=== PATIENT | female | born 1940 | race Caucasian/White ===

== ENCOUNTER 2020-04-05 13:24 | Inpatient (IN) | payer MEDICARE, OTHER, SELFPAY ==
[2020-04-05] VITALS (10 sets, daily range): BP systolic 108–143; BP diastolic 50–97; PULSE 68–84; RESP 18–25; TEMP 36.2–37.3; O2SAT 88–99; BMI 30.2; BMI 30.9; BMI 31.0
--- NOTE | 2020-04-05 13:44 | EKG12_ITS ---
Test Reason : SOB Blood Pressure : / mmHG Vent. Rate : 069 BPM Atrial Rate : 069 BPM P-R Int : 140 ms QRS Dur : 112 ms QT Int : 424 ms P-R-T Axes : 015 -18 -07 degrees QTc Int : 454 ms Normal sinus rhythm Low voltage QRS Incomplete right bundle branch block Borderline ECG Confirmed by ROZ SOLARES, ZANA ([id number]), website/blog editor OPAL BURK ([id number]) on 04/08/2020 12:49:24 PM Referred By: FRANKY Confirmed By:ZANA COURTNEY MD
--- NOTE | 2020-04-05 13:48 | ED.DCSUM_ITS ---
- ER Visit Summary Date of Service: 04/05/20 Chief Complaint: Shortness of breath History of Present Illness: The patient is a 79 F presenting with shortness of breath. She states she started having Covid-like symptoms on March 24. She started having rhinorrhea and sore throat. Her symptoms started out mild. She states over the past 5 to 6 days she has had increasing shortness of breath. This is worsened with exertion. She has been taking Tylenol regularly. She does not currently have a physician. She denies chest pain. Her son-in-law and grandson have tested positive for Covid. Physical Examination: Vitals are stable. Resp rate 24. Patient is afebrile. Alert no acute distress. 88% on room air HEENT exam is unremarkable. Neck is supple. Lungs are diminished bilaterally. tachypnea Heart is regular rate and rhythm. Abdomen is soft nontender nondistended. Extremities are unremarkable. Skin is warm and dry. No focal neurologic deficit. Remainder of exam is unremarkable. Emergency Department Course and Treatment: EKG is sinus rhythm rate of 69 with incomplete right bundle branch block. Chest xray shows airspace opacity in the lingula and right lower lobe which is consistent with multilobar pneumonia. CBC shows lymphocytes are low. Chemistries show potassium 3.1, glucose 122. Troponin 0.03. Covid is positive. She was given Decadron. She was given Rocephin and Zithromax for possible secondary infection. Discussed with the hospitalist for admission. Disposition: Admission Impression: Multilobar pneumonia, COVID-19 This note was generated with [employer] dictation software. It may contain incorrect words, spelling, and punctuation that were not noted in review of the chart prior to signing ED Disposition - Plan for ED Patient: Referrals: Care Physician,No Primary [Primary Care Provider] -
--- NOTE | 2020-04-05 14:15 | RAD_ITS ---
STUDY: X-RAY CHEST REASON FOR EXAM: Female, 79 years old. Shortness of breath TECHNIQUE: Frontal view of the chest COMPARISON: None. FINDINGS: There is airspace opacity in the lingula and right lower lobe. There are no pleural effusions. There is no pneumothorax. The heart is normal in size. The visualized osseous structures are within normal limits. RAD/Chest 1 View (Portable) IMPRESSION: Airspace opacity in the lingula and right lower lobe which is consistent with multilobar pneumonia. Electronically Signed: Leeroy May, at 14:37 EST Tel , Service support ,
[2020-04-05 14:44] LABS: Anion Gap 5 (5-15); BUN 13 mg/dL (7-18); BUN/Creat Ratio 13.9 RATIO (10-20); Calcium,Total 8.5 mg/dL (8.5-10.1); Chloride 108 mmol/L (98-107); Creatinine, Serum 0.94 mg/dL (0.55-1.02); EST Glomerular Filtration Rate 61 mL/min (>60); Est Glom Filt Rate - Afr Amer 74 mL/min (>60); Estimated Creatinine Clearance 38.83 ml/min; Glucose 122 mg/dL (74-106); Potassium 3.1 mmol/L (3.5-5.1); Sodium Level 141 mmol/L (136-145)
[2020-04-05 14:46] LABS: Absolute Lymphocyte Count 0.91 X10^3/uL (0.83-4.51); Absolute Neutrophil Count 9.1 X10^3/uL (2.0-7.7); Basophil# 0.02 X10^3/uL; Basophil% 0.2 % (0-1); Eosinophil# 0.01 X10^3/uL; Eosinophils% 0.1 % (0-5); Hematocrit 36.9 % (37-47); Hemoglobin 12.2 g/dL (12.0-15.0); Lymphocyte # 0.91 X10^3/ul (4.0); Lymphocyte % 8.6 % (19-41); Mean Corp Hgb Conc 33.1 g/dL (32-36); Mean Corpuscular Hgb 29.3 pg (27.0-32.0); Mean Corpuscular Volume 88.7 fL (81-99); Mean Platelet Vol. 10.5 fl (6.2-12.0); Monocyte# 0.53 X10^3/uL; NRBC Flagged by Analyzer 0 % (0-5); Neutrophil # 9.05 X10^3/uL (2.7-7.7); Neutrophil % 85.3 % (47-70); Platelet Count 213 K/mm3 (150-450); RBC Distribution Width CV 13.3 % (11.6-14.6); RBC Distribution Width SD 43.5 fl (35.1-43.9); Red Blood Count 4.16 M/mm3 (4.2-5.4); White Blood Count 10.6 K/mm3 (4.4-11.0)
[2020-04-05] MEDS: dexAMETHasone 4 MG Tablet 6 MG PO (15:17)
[2020-04-05] MEDS: Ceftriaxone 1 GM/50 ML BAG IV (15:19)
--- NOTE | 2020-04-05 15:20 | HP.PCM_ITS ---
Problem List (1) Pneumonia Status: Acute History of Present Illness Date of Admission: 04/05/20 Chief Complaint: shortness and cough The patient is a 79 year old F presents with 5-day history of shortness of breath and cough. Presented to the emergency room and she was 88% on room air. Placed on oxygen and her sats remained in the 90s. Chest x-ray showed bilateral lower lobe infiltrates. Patient was exposed to people in her home who had Covid. 2 weeks ago, she had symptoms with malaise short of breath and diarrhea but got better and then 5 days ago started getting worse. Patient was not tested for COVID-19 at that time. Patient does have a Covid test that is currently outstanding at the time of this dictation. Patient denies any past medical history other than having weak lungs, she characterizes that is just not taking in deep breaths but denies any history of asthma or COPD. [] Past Medical History Allergies Penicillins [PCN] Allergy (Verified 04/05/20 13:32) Hives codeine Adverse Reaction (Verified 04/05/20 13:32) Upset Stomach Home Medications: Ambulatory Orders Medication Instructions Recorded NK 04/05/20 Smoking Status: Never smoker - *Family History Maternal History Items: - - No longer heart problems Review of Systems Constitutional: Reports: Weakness. Denies: Anorexia, Chills, Fever Eyes: Denies: Blurred vision, Double vision HEENT: Denies: Head Aches, Sinus Congestion, Sinus Drainage Cardiovascular: Denies: Chest Pain, Palpitations Respiratory: Reports: Cough, Shortness of Breath Gastrointestinal: Denies: Abdominal Pain, Nausea, Vomiting Genitourinary: Denies: Dysuria Hematologic/ Lymphatic: Denies: Hx of blood clot Comment: All review of systems were negative except as mentioned above in the history of present illness and the other review of systems. VTE Information - Inpt Only VTE Present on Admission: No VTE Mechan Device Prophylaxis: None VTE Pharm Prophylaxis ordered?: Yes - Physical Exam Vitals/I&O's: Vital Signs Temp Pulse Resp BP Pulse Ox 37.2 C 74 23 H 131/97 H 98 04/05/20 15:00 04/05/20 15:00 04/05/20 15:00 04/05/20 15:00 04/05/20 15:00 Oxygen Flow Rate (L/min) 2 Oxygen Delivery Method Nasal Cannula Weight: 77.27 kg Body Mass Index (BMI) 30.2 General: Alert, Cooperative, No apparent distress HEENT: Atraumatic, Normocephalic Oral: Moist Mucosa, No Gingival or Mucosal Lesions/ Ulcerations Neck: No Nodes, Thyroid Normal Size and Texture Lungs: Normal air movement, - - Bibasilar crackles. Cardiovascular: Regular rate, Regular Rhythm, Normal S1, Normal S2, No murmurs Abdomen: Bowel Sounds Present, Soft, Non Tender, Non-Distended, No Hepato- splenomegaly Extremities: No edema, No Calf Tenderness Skin: No rashes, No breakdown Neurological: Muscle tone normal, Coordination normal Psych/Mental Status: Normal Affect, Appropriate Laboratory Results 04/05/20 14:00: WBC 10.6, RBC 4.16 L, Hgb 12.2, Hct 36.9 L, MCV 88.7, MCH 29.3, MCHC 33.1, RDW Std Deviation 43.5, RDW Coeff of Gabriel 13.3, Plt Count 213, MPV 10.5, Immature Gran % (Auto) 0.800, Neut % (Auto) 85.3 H, Lymph % (Auto) 8.6 L, [place] % (Auto) 5.0, Eos % (Auto) 0.1, Baso % (Auto) 0.2, Absolute Neuts (auto) 9.1 H, Absolute Lymphs (auto) 0.91, Nucleated RBC % 0 04/05/20 14:00: Sodium 141, Potassium 3.1 L, Chloride 108 H, Carbon Dioxide 28.0, Anion Gap 5, BUN 13, Creatinine 0.94, Estim Creat Clear Calc 38.83, Est GFR (MDRD) Af Amer 74, Est GFR (MDRD) Non-Af 61, BUN/Creatinine Ratio 13.9, Glucose 122 H, Calcium 8.5, Troponin I 0.030 04/05/20 14:00: COVID-19 ([facility]) Pending Chest x-ray personally reviewed and showed bilateral lobe infiltrates. Current Medications Azithromycin 500 mg/ Dextrose 255 mls @ 250 mls/hr IV X1 ONE Stop: 04/05/20 16:01 Ceftriaxone Sodium (Rocephin) 1 gm in 50 mls @ 100 mls/hr IV X1 ONE Stop: 04/05/20 15:29 Last Admin: 04/05/20 15:19 Dose: 100 mls/hr Documented by: Sodium Chloride () 250 mls @ 15 mls/hr IV .[id number] PRN PRN Reason: Saline Flush Assessment/Plan All Active Problems Pneumonia (Acute) 1. Suspected pneumococcal pneumonia: I suspect this probably secondary pneumonia related with a presumed COVID-19 infection. We will continue with azithromycin and ceftriaxone. Check urinary antigens for Streptococcus and Legionella, check influenza as well. 2. Acute hypoxic respiratory insufficiency: Secondary to above plus or minus COVID-19. Patient on oxygen. Upon discharge, check in the ambulatory pulse ox. 3. COVID-19 infection: Suspect that she had mild symptoms about 2 weeks ago and then got better. I did tell the patient that it is certainly possible that she could be having worsening of her COVID-19. If patient is positive for COVID-19 then would initiate dexamethasone while she is in the hospital. Patient is receiving a dose in the emergency room. 4. Hypokalemia: Replace. Check magnesium. Replace magnesium if low. 5. VTE prophylaxis with low molecular weight heparin 6. Advanced care planning: Discussed with the patient. Patient wishes to be DNR Comfort Care arrest with intubation if necessary. 7. Disposition: Explained the patient that it variable at this time. She is COVID-19 negative and doing better tomorrow theoretically that she could go home as early as tomorrow, however if she is positive for COVID-19 will to watch her another day if she is improved to ensure that she does not have any worsening that can be seen with individuals with COVID-19. Given patient's age, patient not be established with a primary care provider upon discharge for age- appropriate screening and also screening test that she may have missed. Inpatient E&M: [id number] Init Hosp L3
[2020-04-05 15:41] LABS: Probe Check PASS
[2020-04-05 17:48] LABS: Magnesium 1.6 mg/dL (1.6-2.6)
[2020-04-05] MEDS: 0.9% Saline Lock 10 ML Syringe IV (18:09)
--- NOTE | 2020-04-05 20:19 | PN_ITS ---
Progress Note Patient has aside being positive for COVID-19 she is also positive for influenza B. Will start patient on Tamiflu po adjusted for creatinine cl earance. STROKE Vital Signs/Narrative: Vital Signs Temp Pulse Resp BP Pulse Ox 04/05/20 17:31 99.1 F 84 24 H 143/82 H 94
[2020-04-05] MEDS: Enoxaparin 30 MG/0.3 ML Syringe SC (21:12)
[2020-04-05] MEDS: guaiFENesin 1,200 MG Tablet 1200 MG PO (21:12)
[2020-04-05] MEDS: Oseltamivir Phosphate 30 MG Capsule PO (21:12)
[2020-04-06] VITALS (9 sets, daily range): BP systolic 108–129; BP diastolic 59–71; PULSE 64–74; RESP 20–24; TEMP 36.3–36.8; O2SAT 88–97
[2020-04-06 06:30] LABS: Absolute Lymphocyte Count 1.05 X10^3/uL (0.83-4.51); Absolute Neutrophil Count 5.5 X10^3/uL (2.0-7.7); Basophil# 0.01 X10^3/uL; Basophil% 0.1 % (0-1); Hematocrit 34.3 % (37-47); Hemoglobin 11.8 g/dL (12.0-15.0); Lymphocyte # 1.05 X10^3/ul (4.0); Lymphocyte % 15.2 % (19-41); Mean Corp Hgb Conc 34.4 g/dL (32-36); Mean Corpuscular Hgb 31.9 pg (27.0-32.0); Mean Corpuscular Volume 92.7 fL (81-99); Mean Platelet Vol. 9.3 fl (6.2-12.0); Monocyte# 0.27 X10^3/uL; Monocyte% 3.9 % (0-10); NRBC Flagged by Analyzer 0 % (0-5); Neutrophil # 5.54 X10^3/uL (2.7-7.7); Neutrophil % 80.1 % (47-70); POSITIVE MORPHOLOGY YES; Platelet Count 304 K/mm3 (150-450); RBC Distribution Width CV 13.3 % (11.6-14.6); RBC Distribution Width SD 43.9 fl (35.1-43.9); White Blood Count 6.9 K/mm3 (4.4-11.0)
[2020-04-06 06:32] LABS: Differential Indicated SCAN CRITERIA MET
[2020-04-06 06:59] LABS: ALB/GLOB Ratio 0.6 RATIO (0.9-2.4); AST(SGOT) 34 U/L (15-37); Alanine Aminotransfer ALT/SGPT 31 U/L (13-56); Albumin, Serum 2.6 g/dL (3.2-5.0); Alkaline Phosphatase 85 U/L (45-117); Anion Gap 8 (5-15); BUN 10 mg/dL (7-18); BUN/Creat Ratio 13.9 RATIO (10-20); Calcium,Total 8.3 mg/dL (8.5-10.1); Chloride 108 mmol/L (98-107); Creatinine, Serum 0.72 mg/dL (0.55-1.02); EST Glomerular Filtration Rate 83 mL/min (>60); Est Glom Filt Rate - Afr Amer 100 mL/min (>60); Globulin 4.3 g/dL (2.2-4.2); Glucose 146 mg/dL (74-106); Potassium 3.9 mmol/L (3.5-5.1); Protein, Total 6.9 g/dL (6.4-8.2); Sodium Level 142 mmol/L (136-145)
[2020-04-06 07:05] LABS: Differential Comment SCANNED
--- NOTE | 2020-04-06 07:21 | PN_ITS ---
Patient Problems: Active and Suspected Problems Pneumonia (Acute) Reason for Visit: Follow-up on hypoxia/Acute COVID-19 infection/Acute influenza Subjective: Patient was seen and examined. Feels improved. She has been coughing. Denies any fever or chills. Objective: Physical exam: General: Alert, Cooperative, No apparent distress HEENT: Atraumatic, Normocephalic Oral: Moist Mucosa, No Gingival or Mucosal Lesions/ Ulcerations Neck: No Nodes, Thyroid Normal Size and Texture Lungs: Normal air movement, - - Bibasilar crackles. Cardiovascular: Regular rate, Regular Rhythm, Normal S1, Normal S2, No murmurs Abdomen: Bowel Sounds Present, Soft, Non Tender, Non-Distended, No Hepato- splenomegaly Extremities: No edema, No Calf Tenderness Skin: No rashes, No breakdown Neurological: Muscle tone normal, Coordination normal Psych/Mental Status: Normal Affect, Appropriate Vitals/I&O's: Vital Signs Temp Pulse Resp BP Pulse Ox 98 F 68 24 H 129/65 H 97 04/06/20 03:17 04/06/20 03:17 04/06/20 03:17 04/06/20 03:17 04/06/20 03:20 Oxygen Flow Rate (L/min) 4 Oxygen Delivery Method Nasal Cannula Weight: 79.379 kg Body Mass Index (BMI) 30.9 Intake and Output for Last 24 Hours 04/04/20 04/05/20 04/06/20 23:59 23:59 23:59 Intake Total 675.75 / 675.75 100 / 100 Balance 675.75 / 675.75 100 / 100 Microbiology Past 72 Hours 04/05/20 21:05 Urine, Clean Catch Legionella Antigen - Final 04/05/20 21:05 Urine, Clean Catch Streptococcus pneumoniae Antigen (M - Final 04/05/20 18:15 Mucosa - Nasopharyngeal Influenza Types A,B Direct FA (MIGULE ÁNGEL) - Final Influenzae B Laboratory Results 04/05/20 14:00: WBC 10.6, RBC 4.16 L, Hgb 12.2, Hct 36.9 L, MCV 88.7, MCH 29.3, MCHC 33.1, RDW Std Deviation 43.5, RDW Coeff of Gabriel 13.3, Plt Count 213, MPV 10.5, Immature Gran % (Auto) 0.800, Neut % (Auto) 85.3 H, Lymph % (Auto) 8.6 L, [place] % (Auto) 5.0, Eos % (Auto) 0.1, Baso % (Auto) 0.2, Absolute Neuts (auto) 9.1 H, Absolute Lymphs (auto) 0.91, Nucleated RBC % 0 04/05/20 14:00: Sodium 141, Potassium 3.1 L, Chloride 108 H, Carbon Dioxide 28.0, Anion Gap 5, BUN 13, Creatinine 0.94, Estim Creat Clear Calc 38.83, Est GFR (MDRD) Af Amer 74, Est GFR (MDRD) Non-Af 61, BUN/Creatinine Ratio 13.9, Glucose 122 H, Calcium 8.5, Troponin I 0.030 04/05/20 14:00: COVID-19 ([facility]) Positive 04/05/20 14:00: Magnesium 1.6 04/06/20 05:42: WBC 6.9, RBC 3.70 L, Hgb 11.8 L, Hct 34.3 L, MCV 92.7, MCH 31.9, MCHC 34.4, RDW Std Deviation 43.9, RDW Coeff of Gabriel 13.3, Plt Count 304, MPV 9.3, Immature Gran % (Auto) 0.700, Neut % (Auto) 80.1 H, Lymph % (Auto) 15.2 L, [place] % (Auto) 3.9, Eos % (Auto) 0.0, Baso % (Auto) 0.1, Absolute Neuts (auto) 5.5, Absolute Lymphs (auto) 1.05, Nucleated RBC % 0, Differential Comment SCANNED 04/06/20 05:42: Sodium 142, Potassium 3.9, Chloride 108 H, Carbon Dioxide 26.0, Anion Gap 8, BUN 10, Creatinine 0.72, Estim Creat Clear Calc 36.50, Est GFR (MDRD) Af Amer 100, Est GFR (MDRD) Non-Af 83, BUN/Creatinine Ratio 13.9, Glucose 146 H, Calcium 8.3 L, Total Bilirubin 0.40, AST 34, ALT 31, Alkaline Phosphatase 85, Total Protein 6.9, Albumin 2.6 L, Globulin 4.3 H, Albumin/Globulin Ratio 0.6 L Current Medications Acetaminophen (Acetaminophen 325 Mg Tablet) 650 mg PO Q6H PRN PRN PRN Reason: Pain Score 1-10/Temp > 100.7 F Dexamethasone (Dexamethasone 4 Mg Tablet) 6 mg PO DAILY [facility] Stop: 04/15/20 10:01 Enoxaparin Sodium (Enoxaparin 30 Mg/0.3 Ml Syringe) 30 mg SC BID [facility] Last Admin: 04/05/20 21:12 Dose: 30 mg Documented by: Guaifenesin (Guaifenesin 1,200 Mg Tablet) 1,200 mg PO BID [facility] Last Admin: 04/05/20 21:12 Dose: 1,200 mg Documented by: Ceftriaxone Sodium 2 gm/ (Sodium Chloride) 50 mls @ 100 mls/hr IV Q24 [facility] Stop: 04/13/20 10:01 Azithromycin 500 mg/ Dextrose 255 mls @ 250 mls/hr IV Q24 [facility] Stop: 04/11/20 10:01 Sodium Chloride () 250 mls @ 15 mls/hr IV .[id number] PRN PRN Reason: Saline Flush Sodium Chloride () 250 mls @ 15 mls/hr IV .[id number] PRN PRN Reason: Additional IVPB Infusion Sodium Chloride () 250 mls @ 15 mls/hr IV .[id number] PRN PRN Reason: Saline Flush Sodium Chloride () 250 mls @ 15 mls/hr IV .[id number] PRN PRN Reason: Additional IVPB Infusion Ibuprofen (Ibuprofen 400 Mg Tablet) 400 mg PO Q4H PRN PRN PRN Reason: Pain Score 1-10/Temp > 100.7 F Melatonin (Melatonin 3 Mg Tablet) 3 mg PO QHS PRN PRN PRN Reason: INSOMNIA Ondansetron HCl (Ondansetron 4 Mg/2 Ml Vial) 4 mg IV Q8H PRN PRN PRN Reason: NAUSEA/VOMITING Oseltamivir Phosphate (Oseltamivir Phosphate 30 Mg Capsule) 30 mg PO BID [facility] Stop: 04/10/20 10:01 Last Admin: 04/05/20 21:12 Dose: 30 mg Documented by: Sodium Chloride (0.9% Saline Lock 10 Ml Syringe) 10 - 40 ml IV UD PRN PRN Reason: SALINE FLUSH Last Admin: 04/05/20 18:09 Dose: 10 ml Documented by: Medical Necessity - Tobacco Use Smoking Status: Never smoker Assessment/Plan All Active Problems Pneumonia (Acute) 1. Acute hypoxic respiratory failure secondary to pneumonia/acute COVID-19 pneumonia/influenza Continue with breathing treatments, decadron, encourage use of incentive spirometer. Wean off oxygen for SPO2 more than 94% 2. Acute COVID-19 pneumonia with hypoxia Symptoms appear to have started 2 weeks ago, worsening 5 days prior to admission Continue on Decadron, continue breathing treatments 3. Acute community-acquired pneumonia, multilobular, likely secondary to suspected gram-positive organisms Chest x-ray showed airspace opacity in the lingula and right lower lobe Continue on IV ceftriaxone and azithromycin 4. Acute influenza, started on Tamiflu 5. DVT PPx- Lovenox SC BID Inpatient E&M: [id number] Subs Hosp L2
[2020-04-06] MEDS: dexAMETHasone 4 MG Tablet 6 MG PO (10:34)
[2020-04-06] MEDS: Enoxaparin 30 MG/0.3 ML Syringe SC ×2 (10:34→22:34)
[2020-04-06] MEDS: guaiFENesin 1,200 MG Tablet 1200 MG PO ×2 (10:34→22:34)
[2020-04-06] MEDS: Oseltamivir Phosphate 30 MG Capsule PO ×2 (10:35→22:34)
[2020-04-06] MEDS: Multivitamins,Therapeutic Tablet 1 TABLET PO (10:38)
--- NOTE | 2020-04-06 14:26 | NURSING ---
[id number]% on 5L [place]. This nurse decreased rate to 4L [place] at this time. Spo2 92% on 4L [place]. Will continue to monitor.
[2020-04-06] MEDS: 0.9% Saline Lock 10 ML Syringe IV ×2 (15:55→22:35)
[2020-04-07] VITALS (11 sets, daily range): BP systolic 120–133; BP diastolic 68–83; PULSE 75–99; RESP 18–24; TEMP 36.3–37.1; O2SAT 92–98
--- NOTE | 2020-04-07 08:10 | PCM.CONS.PUL ---
Reason for Consult Date of Consultation: 04/07/20 Reason for Consultation: Acute hypoxemic respiratory failure secondary to Covid pneumonia History of Present Illness: The patient is an 79-year-old female, with a history as outlined below, who presented to the emergency department on April 05 with complaints of shortness of breath, rhinorrhea, fever and sore throat. The patient does have family members who have tested positive for coronavirus recently. In total, the patient reported that her symptoms have been present now for 2 weeks. She does report that if her respiratory status were to decompensate clinically, that she would be agreeable to intubation. On presentation to the emergency department, the patient was noted to be afebrile and hemodynamically stable. She was initially saturating 88% on room air. Laboratory evaluation revealed a normal white blood cell count. Chemistry profile was notable for a potassium of 3.1. Liver function profile was within normal limits. Troponin was negative. Coronavirus PCR was positive. Chest x-ray revealed findings concerning for multilobar pneumonia. Respiratory viral panel was also positive for influenza B. The patient was subsequently placed on Decadron, antimicrobials and Tamiflu. She was admitted to the coronavirus cohort unit for further management. Past Medical History Allergies Penicillins [PCN] Allergy (Verified 04/05/20 17:31) Hives codeine Adverse Reaction (Verified 04/05/20 17:31) Upset Stomach Home Medications: Ambulatory Orders Medication Instructions Recorded Multivitamin 1 ea PO DAILY 04/05/20 Smoking Status: Never smoker - *Family History Maternal History Items: - - No longer heart problems Review of Systems Constitutional: Reports: Chills, Fever, Malaise, Weakness, Fatigue Eyes: Denies: Blurred vision, Double vision HEENT: Denies: Head Aches, Sinus Congestion, Sinus Drainage Cardiovascular: Denies: Chest Pain, Palpitations Respiratory: Reports: Cough, Shortness of Breath Gastrointestinal: Denies: Abdominal Pain, Nausea, Vomiting Genitourinary: Denies: Dysuria Musculoskeletal: Denies: Joint Pain, Joint Tenderness Skin: Denies: Rash, Wounds Neurological: Denies: Numbness, Tingling, Focal weakness Psychiatric: Denies: Anxiety, Depression, Homicidal Ideations, Suicidal Ideations Hematologic/ Lymphatic: Denies: Easy Bruising, Easy Bleeding Patient Problems: Active and Suspected Problems Pneumonia (Acute) COVID-19 (Acute) Objective: The patient's most recent lab work, culture data and imaging studies have all been personally reviewed. Coronavirus PCR was positive on April 05. Respiratory viral panel was positive for influenza B. - Physical Exam Vitals/I&O's: Vital Signs Temp Pulse Resp BP Pulse Ox 98.1 F 78 24 H 133/76 H 96 04/07/20 05:12 04/07/20 05:12 04/07/20 05:12 04/07/20 05:12 04/07/20 05:12 Oxygen Flow Rate (L/min) 5 Oxygen Delivery Method Nasal Cannula Weight: 175 lb 0.752 oz Body Mass Index (BMI) 30.9 Intake and Output for Last 24 Hours 04/05/20 04/06/20 04/07/20 23:59 23:59 23:59 Intake Total 675.75 / 675.75 1214 / 1414 400 / 400 Balance 675.75 / 675.75 1214 / 1414 400 / 400 General: Alert, Cooperative HEENT: Atraumatic, Normocephalic Oral: No Gingival or Mucosal Lesions/ Ulcerations Neck: Supple, No Nodes, Trachea Midline Lungs: Diminished, Rales, Tachypneic Cardiovascular: Regular rate, Regular Rhythm Abdomen: Bowel Sounds Present, Soft, Non Tender Extremities: No clubbing, No cyanosis, No edema Skin: No breakdown Musculoskeletal: No Tenderness to Palpation of Joints or Extremities Lymphatic: No Cervical, Supraclavicular, or Inguinal Adenopathy Neurological: Cranial nerves II-XII grossly intact, Neuro grossly intact Psych/Mental Status: Normal Affect, Appropriate Labs (Last 48 Hours) 04/05/20 04/05/20 04/05/20 14:00 14:00 14:00 WBC 10.6 RBC 4.16 L Hgb 12.2 Hct 36.9 L MCV 88.7 MCH 29.3 MCHC 33.1 RDW Std Deviation 43.5 RDW Coeff of Gabriel 13.3 Plt Count 213 MPV 10.5 Immature Gran % (Auto) 0.800 Neut % (Auto) 85.3 H Lymph % (Auto) 8.6 L [place] % (Auto) 5.0 Eos % (Auto) 0.1 Baso % (Auto) 0.2 Absolute Neuts (auto) 9.1 H Absolute Lymphs (auto) 0.91 Nucleated RBC % 0 Differential Comment Sodium 141 Potassium 3.1 L Chloride 108 H Carbon Dioxide 28.0 Anion Gap 5 BUN 13 Creatinine 0.94 Estim Creat Clear Calc 38.83 Est GFR (MDRD) Af Amer 74 Est GFR (MDRD) Non-Af 61 BUN/Creatinine Ratio 13.9 Glucose 122 H Calcium 8.5 Magnesium Total Bilirubin AST ALT Alkaline Phosphatase Troponin I 0.030 Total Protein Albumin Globulin Albumin/Globulin Ratio COVID-19 (SANG) Positive 04/05/20 04/06/20 04/06/20 14:00 05:42 05:42 WBC 6.9 RBC 3.70 L Hgb 11.8 L Hct 34.3 L MCV 92.7 MCH 31.9 MCHC 34.4 RDW Std Deviation 43.9 RDW Coeff of Gabriel 13.3 Plt Count 304 MPV 9.3 Immature Gran % (Auto) 0.700 Neut % (Auto) 80.1 H Lymph % (Auto) 15.2 L [place] % (Auto) 3.9 Eos % (Auto) 0.0 Baso % (Auto) 0.1 Absolute Neuts (auto) 5.5 Absolute Lymphs (auto) 1.05 Nucleated RBC % 0 Differential Comment SCANNED Sodium 142 Potassium 3.9 Chloride 108 H Carbon Dioxide 26.0 Anion Gap 8 BUN 10 Creatinine 0.72 Estim Creat Clear Calc 36.50 Est GFR (MDRD) Af Amer 100 Est GFR (MDRD) Non-Af 83 BUN/Creatinine Ratio 13.9 Glucose 146 H Calcium 8.3 L Magnesium 1.6 Total Bilirubin 0.40 AST 34 ALT 31 Alkaline Phosphatase 85 Troponin I Total Protein 6.9 Albumin 2.6 L Globulin 4.3 H Albumin/Globulin Ratio 0.6 L COVID-19 (SANG) 04/06/20 05:42 WBC RBC Hgb Hct MCV MCH MCHC RDW Std Deviation RDW Coeff of Gabriel Plt Count MPV Immature Gran % (Auto) Neut % (Auto) Lymph % (Auto) [place] % (Auto) Eos % (Auto) Baso % (Auto) Absolute Neuts (auto) Absolute Lymphs (auto) Nucleated RBC % Differential Comment Sodium Potassium Chloride Carbon Dioxide Anion Gap BUN Creatinine Estim Creat Clear Calc Est GFR (MDRD) Af Amer Est GFR (MDRD) Non-Af BUN/Creatinine Ratio Glucose Calcium Magnesium 2.0 Total Bilirubin AST ALT Alkaline Phosphatase Troponin I Total Protein Albumin Globulin Albumin/Globulin Ratio COVID-19 (SANG) Microbiology 04/05/20 21:05 Urine, Clean Catch Legionella Antigen - Final 04/05/20 21:05 Urine, Clean Catch Streptococcus pneumoniae Antigen (M - Final 04/05/20 18:15 Mucosa - Nasopharyngeal Influenza Types A,B Direct FA (MIGUEL ÁNGEL) - Final Influenzae B Clinical Impression(s) from Imaging Studies Chest X-Ray 04/05/20 14:15 IMPRESSION: Airspace opacity in the lingula and right lower lobe which is consistent with multilobar pneumonia. Electronically Signed: Leeroy May, at 14:37 EST Tel , Service support , Current Medications Acetaminophen (Acetaminophen 325 Mg Tablet) 650 mg PO Q6H PRN PRN PRN Reason: Pain Score 1-10/Temp > 100.7 F Dexamethasone (Dexamethasone 4 Mg Tablet) 6 mg PO DAILY [facility] Stop: 04/15/20 10:01 Last Admin: 04/06/20 10:34 Dose: 6 mg Documented by: Enoxaparin Sodium (Enoxaparin 30 Mg/0.3 Ml Syringe) 30 mg SC BID [facility] Last Admin: 04/06/20 22:34 Dose: 30 mg Documented by: Guaifenesin (Guaifenesin 1,200 Mg Tablet) 1,200 mg PO BID [facility] Last Admin: 04/06/20 22:34 Dose: 1,200 mg Documented by: Ceftriaxone Sodium 2 gm/ (Sodium Chloride) 50 mls @ 100 mls/hr IV Q24 [facility] Stop: 04/13/20 10:01 Last Infusion: 04/06/20 16:35 Dose: Infused Documented by: Azithromycin 500 mg/ Dextrose 255 mls @ 250 mls/hr IV Q24 [facility] Stop: 04/11/20 10:01 Last Infusion: 04/06/20 17:59 Dose: Infused Documented by: Sodium Chloride () 250 mls @ 15 mls/hr IV .[id number] PRN PRN Reason: Saline Flush Sodium Chloride () 250 mls @ 15 mls/hr IV .[id number] PRN PRN Reason: Additional IVPB Infusion Sodium Chloride () 250 mls @ 15 mls/hr IV .[id number] PRN PRN Reason: Saline Flush Sodium Chloride () 250 mls @ 15 mls/hr IV .[id number] PRN PRN Reason: Additional IVPB Infusion Ibuprofen (Ibuprofen 400 Mg Tablet) 400 mg PO Q4H PRN PRN PRN Reason: Pain Score 1-10/Temp > 100.7 F Melatonin (Melatonin 3 Mg Tablet) 3 mg PO QHS PRN PRN PRN Reason: INSOMNIA Multivitamins (Multivitamins,Therapeutic Tablet) 1 tablet PO DAILY [facility] Last Admin: 04/06/20 10:38 Dose: 1 tablet Documented by: Ondansetron HCl (Ondansetron 4 Mg/2 Ml Vial) 4 mg IV Q8H PRN PRN PRN Reason: NAUSEA/VOMITING Oseltamivir Phosphate (Oseltamivir Phosphate 30 Mg Capsule) 30 mg PO BID [facility] Stop: 04/10/20 10:01 Last Admin: 04/06/20 22:34 Dose: 30 mg Documented by: Sodium Chloride (0.9% Saline Lock 10 Ml Syringe) 10 - 40 ml IV UD PRN PRN Reason: SALINE FLUSH Last Admin: 04/06/20 22:35 Dose: 10 ml Documented by: Assessment/Plan All Active Problems Pneumonia (Acute) COVID-19 (Acute) RECOMMENDATIONS: 1. Continue Decadron 6 mg daily x10 days. 2. Continue empiric antimicrobials. Infectious diseases consultation is pending. 3. Continue Lovenox as ordered. 4. I do not see an indication for remdesivir or convalescent plasma at this time. 5. Wean supplemental oxygen to maintain saturations at or above 90%. 6. Encourage incentive spirometer use and mobilize patient as tolerated. IMPRESSIONS: 1. Acute hypoxemic respiratory failure secondary to combined COVID-19/influenza and/or community-acquired pneumonia The patient essentially presented to the hospital with 2 weeks of Covid-like symptoms. She was also found to be positive for influenza B with radiographic findings concerning for multilobar pneumonia. She is currently maintaining appropriate saturations on supplemental O2 via nasal cannula. Recommend continuing current supportive measures including Decadron 6 mg daily x10 days. Given the patient's duration of symptoms, it is unlikely that she would benefit from remdesivir or convalescent plasma. Agree with continuing Tamiflu for now. Agree with empiric antimicrobials. Wean supplemental oxygen to maintain saturations at or above 90%. This note was generated with [employer] dictation software. It may contain incorrect words, spelling, and punctuation that were not noted in checking the note before signing. Inpatient E&M: 61260 Init Hosp L3
--- NOTE | 2020-04-07 08:15 | PCM.PN.HOSP ---
Patient Problems: Active and Suspected Problems Pneumonia (Acute) COVID-19 (Acute) Reason for Visit: Follow-up for COVID-19 pneumonia with worsening of shortness of breath. Objective: No fever. On 5 L of oxygen, pulse ox 92 to 96%. Patient had Covid symptoms started 2 weeks ago and then got better. For last for 5 days she is feeling short of breath but denies nausea, vomiting, diarrhea, myalgia or headache. Flu antigen B positive. No fever while inpatient. Patient other family members have tested positive COVID-19 about 2 weeks ago and she was exposed to them. Physical exam General: Alert, Oriented x3, Cooperative, looks frail and short of breath HEENT: Atraumatic, PERRLA, EOMI, Normocephalic Oral: No Gingival or Mucosal Lesions/ Ulcerations Neck: Supple, No JVD, Negative Carotid Bruits Lungs: Air entry diminished in bilateral lung bases. Fine rales in bilateral lung bases. Hypoxic and tachypneic Cardiovascular: Regular rate, Regular Rhythm, Normal S1, Normal S2, No murmurs Abdomen: Bowel Sounds Present, Soft, Non Tender, Non-Distended : No renal angle tenderness. No suprapubic tenderness. Extremities: No edema, Capillary Refill Less than 3 Seconds Skin: No rashes, No breakdown Musculoskeletal: No Tenderness to Palpation of Joints or Extremities Neurological: Cranial nerves II-XII grossly intact, Deep Tendon Reflexes 2+/4 and Symmetrical, Neuro grossly intact Psych/Mental Status: Normal Affect, Appropriate. Vitals/I&O's: Vital Signs Temp Pulse Resp BP Pulse Ox 98.1 F 78 24 H 133/76 H 96 04/07/20 05:12 04/07/20 05:12 04/07/20 05:12 04/07/20 05:12 04/07/20 05:12 Oxygen Flow Rate (L/min) 5 Oxygen Delivery Method Nasal Cannula Weight: 175 lb 0.752 oz Body Mass Index (BMI) 30.9 Intake and Output for Last 24 Hours 04/05/20 04/06/20 04/07/20 23:59 23:59 23:59 Intake Total 675.75 / 675.75 1214 / 1414 400 / 400 Balance 675.75 / 675.75 1214 / 1414 400 / 400 Microbiology Past 72 Hours 04/05/20 21:05 Urine, Clean Catch Legionella Antigen - Final 04/05/20 21:05 Urine, Clean Catch Streptococcus pneumoniae Antigen (M - Final 04/05/20 18:15 Mucosa - Nasopharyngeal Influenza Types A,B Direct FA (MIGUEL ÁNGEL) - Final Influenzae B Laboratory Results 04/06/20 05:42: Magnesium 2.0 Current Medications Acetaminophen (Acetaminophen 325 Mg Tablet) 650 mg PO Q6H PRN PRN PRN Reason: Pain Score 1-10/Temp > 100.7 F Dexamethasone (Dexamethasone 4 Mg Tablet) 6 mg PO DAILY [facility] Stop: 04/15/20 10:01 Last Admin: 04/06/20 10:34 Dose: 6 mg Documented by: Enoxaparin Sodium (Enoxaparin 30 Mg/0.3 Ml Syringe) 30 mg SC BID [facility] Last Admin: 04/06/20 22:34 Dose: 30 mg Documented by: Guaifenesin (Guaifenesin 1,200 Mg Tablet) 1,200 mg PO BID [facility] Last Admin: 04/06/20 22:34 Dose: 1,200 mg Documented by: Ceftriaxone Sodium 2 gm/ (Sodium Chloride) 50 mls @ 100 mls/hr IV Q24 [facility] Stop: 04/13/20 10:01 Last Infusion: 04/06/20 16:35 Dose: Infused Documented by: Azithromycin 500 mg/ Dextrose 255 mls @ 250 mls/hr IV Q24 [facility] Stop: 04/11/20 10:01 Last Infusion: 04/06/20 17:59 Dose: Infused Documented by: Sodium Chloride () 250 mls @ 15 mls/hr IV .[id number] PRN PRN Reason: Saline Flush Sodium Chloride () 250 mls @ 15 mls/hr IV .[id number] PRN PRN Reason: Additional IVPB Infusion Sodium Chloride () 250 mls @ 15 mls/hr IV .[id number] PRN PRN Reason: Saline Flush Sodium Chloride () 250 mls @ 15 mls/hr IV .[id number] PRN PRN Reason: Additional IVPB Infusion Ibuprofen (Ibuprofen 400 Mg Tablet) 400 mg PO Q4H PRN PRN PRN Reason: Pain Score 1-10/Temp > 100.7 F Melatonin (Melatonin 3 Mg Tablet) 3 mg PO QHS PRN PRN PRN Reason: INSOMNIA Multivitamins (Multivitamins,Therapeutic Tablet) 1 tablet PO DAILY [facility] Last Admin: 04/06/20 10:38 Dose: 1 tablet Documented by: Ondansetron HCl (Ondansetron 4 Mg/2 Ml Vial) 4 mg IV Q8H PRN PRN PRN Reason: NAUSEA/VOMITING Oseltamivir Phosphate (Oseltamivir Phosphate 30 Mg Capsule) 30 mg PO BID [facility] Stop: 04/10/20 10:01 Last Admin: 04/06/20 22:34 Dose: 30 mg Documented by: Sodium Chloride (0.9% Saline Lock 10 Ml Syringe) 10 - 40 ml IV UD PRN PRN Reason: SALINE FLUSH Last Admin: 04/06/20 22:35 Dose: 10 ml Documented by: STROKE Vital Signs/Narrative: Vital Signs Temp Pulse Resp BP Pulse Ox 04/07/20 05:12 98.1 F 78 24 H 133/76 H 96 Medical Necessity - Tobacco Use Smoking Status: Never smoker Assessment/Plan All Active Problems Pneumonia (Acute) COVID-19 (Acute) 1. Acute hypoxic respiratory failure secondary to acute COVID-19 pneumonia/influenza antigen B with possible bacterial superinfection: Patient is being admitted on Covid cohort floor. Seen by ID and discussed with him. CTPA is ordered to rule out PE. Currently on ceftriaxone and azithromycin. On Decadron and Tamiflu. Mucinex and PEP. 2. Acute COVID-19 pneumonia with hypoxia: As mentioned. Patient does not have typical influenza symptoms. 3. Acute community-acquired pneumonia, multilobular, likely secondary to suspected gram-positive organisms Chest x-ray showed airspace opacity in the lingula and right lower lobe 4. Acute influenza, started on Tamiflu 5. DVT PPx- Lovenox SC BID Microbiology Past 72 Hours 04/05/20 14:05 Blood Culture (Wb) - Anticubital Right Blood Culture - Preliminary No growth in 48 hours. 04/05/20 14:00 Blood Culture (Wb) - Anticubital Left Blood Culture - Preliminary No growth in 48 hours. 04/05/20 21:05 Urine, Clean Catch Legionella Antigen - Final 04/05/20 21:05 Urine, Clean Catch Streptococcus pneumoniae Antigen (M - Final 04/05/20 18:15 Mucosa - Nasopharyngeal Influenza Types A,B Direct FA (MIGUEL ÁNGEL) - Final Influenzae B Clinical Impression(s) from Imaging Studies Chest X-Ray 04/05/20 14:15 IMPRESSION: Airspace opacity in the lingula and right lower lobe which is consistent with multilobar pneumonia. Inpatient E&M: 30498 Subs Hosp L2
[2020-04-07] MEDS: guaiFENesin 1,200 MG Tablet 1200 MG PO ×2 (09:43→21:53)
[2020-04-07] MEDS: dexAMETHasone 4 MG Tablet 6 MG PO (09:43)
[2020-04-07] MEDS: Multivitamins,Therapeutic Tablet 1 TABLET PO (09:43)
[2020-04-07] MEDS: Oseltamivir Phosphate 30 MG Capsule PO ×2 (09:43→21:53)
[2020-04-07] MEDS: Acetaminophen 325 MG Tablet 650 MG PO (09:44)
[2020-04-07] MEDS: Enoxaparin 30 MG/0.3 ML Syringe SC (09:44)
--- NOTE | 2020-04-07 13:17 | CT_ITS ---
STUDY: CTA CHEST REASON FOR EXAM: Female, 79 years old. COVID RADIATION DOSAGE (If Supplied By Facility): CTDIvol = ( 10.67 ) mGy, DLP = ( 292.55 ) mGycm TECHNIQUE: The examination was performed with the intravenous administration of IV 100mL Isovue-370. Post-processing of the angiographic images was performed, with multiplanar reformation and 3D reconstruction. Individualized dose optimization techniques were used for this CT. COMPARISON: None. FINDINGS: There are multiple bilateral intraluminal filling defects in branches of the upper and lower lobe pulmonary arteries. The main pulmonary arteries do not show any evidence of thrombus. Normal thoracic aorta and visualized great vessels. There is no demonstrated aortic dissection. Normal heart and pericardium. Normal mediastinum. Normal hilar regions. Normal visualized trachea and bronchi. The lungs are well expanded. There is evidence of a consolidation in both lower lobes as well as in the lingular segment of the left upper lobe as well as the medial aspect of the right upper lobe. Normal pleura. Normal chest wall structures. Normal osseous structures. There is a 2.8cm x 2.6 cm nodular density in the right adrenal gland. This is not a typical adrenal adenoma. Punctate calcification is seen within. Moderate-sized hiatal hernia. CT/CTA Chest W/WO Contrast IMPRESSION: Multiple bilateral pulmonary emboli in branches of the right and left pulmonary arteries involving both upper and lower lobes. Bilateral pulmonary infiltrates worse in the lower lobes although there is evidence of the patchy infiltrates in both upper lobes worse in the left upper lobe. 2.8 cm x 2.6 cm soft tissue density in the right adrenal gland. Moderate sized hiatal hernia. Electronically Signed: Ton Cullen, at 15:16 EST , Service support ,
--- NOTE | 2020-04-07 13:19 | PCM.HP.ID ---
Problem List (1) COVID-19 Status: Acute Reason for Consult: covid Consulted by: Dr. Benedict History of Present Illness: The patient is a 79 year old F with minimal PMH, presented with 2 weeks ago got sick with what was thought to be covid. Son-in-law tested (+), his and child also were sick. Pt lives with them, had similar symptoms but was not tested. She reports mostly sore throat, some fatigue, mild fever, mild cough. Quarantined at home, did not leave. Everyone else recovered, no one else developed a new illness. Pt was feeling better until 4-5 days ago, developed fever, cough with clear sputum, and dyspnea. No aches, no n/v/d. Came to ED, flu B Ag was (+), admitted on dex, tamiflu, O2, azithro/ceftriaxone. Feeling about the same today. Full ROS performed and neg except as noted above. - Medical History Surgical History: reviewed Allergies/Adverse Reactions: Allergies Penicillins [PCN] Allergy (Verified 04/05/20 17:31) Hives codeine Adverse Reaction (Verified 04/05/20 17:31) Upset Stomach Home Medications: Ambulatory Orders Medication Instructions Recorded Multivitamin 1 ea PO DAILY 04/05/20 - Social History Tobacco Use: non-smoker Vital Signs Temp Pulse Resp BP Pulse Ox 98.8 F 78 22 H 133/83 H 97 04/07/20 10:46 04/07/20 10:46 04/07/20 10:46 04/07/20 10:46 04/07/20 10:46 Oxygen Flow Rate (L/min) 5 Oxygen Delivery Method Nasal Cannula Weight: 79.4 kg Body Mass Index (BMI) 30.9 Microbiology Past 72 Hours 04/05/20 14:05 Blood Culture - Preliminary Blood Culture (Wb) - Anticubital Right No growth in 48 hours. 04/05/20 14:00 Blood Culture - Preliminary Blood Culture (Wb) - Anticubital Left No growth in 48 hours. 04/05/20 21:05 Legionella Antigen - Final Urine, Clean Catch Streptococcus pneumoniae Antigen (M - Final 04/05/20 18:15 Influenza Types A,B Direct FA (MIGUEL ÁNGEL) - Final Mucosa - Nasopharyngeal Influenzae B - Other Studies Radiology: [] reviewed Other Studies: [] Route of nutrition/ use of supplements: [] Nutritional Intake: [] IV Site: [] Siddiqui Catheter: [] - Physical Exam General: Alert, Oriented x3, Cooperative HEENT: Atraumatic, PERRLA, EOMI Neck: Supple, No Nodes Lungs: Rales - L base Cardiovascular: Regular rate, Regular Rhythm Abdomen: Soft, Non Tender, Non-Distended Extremities: No edema Skin: No rashes IV Site: Peripheral, without redness Musculoskeletal: No Tenderness to Palpation of Joints or Extremities Neurological: Cranial nerves II-XII grossly intact - Assessment/Plan Antibiotics: [] Assessment/Plan: [] Active and Suspected Problems Pneumonia (Acute) Sounds like covid starting two weeks prior to admit, improved, then worsened over past 4-5 days. Flu B Ag (+), but doubt this is true given lack of myalgia/fatigue/n/v/d. No exposure history for flu from her family and she has been quarantining at home since first becoming ill. Ok to continue tamiflu, but higher suspicion for ongoing covid (will cont dex), possible bacterial CAP (cont azithro/ceftriaxone), or PE (will check CTA). Is on lovenox 30mg bid. Will follow, thank you, d/w Dr. Wilkes
--- NOTE | 2020-04-07 14:35 | CASEMGMT ---
RN CM called patient in room for initial transition planning/care coordination assessment. RN CRISTINA introduced self and role at [facility]. Patient is alert and oriented. Patient willing to participate in assessment and is able to answer all questions appropriately. Care providers, pharmacy, and demographics verified. Patient wishes to discharge home, denies need for home health at this time. Patient states she has no further needs or concerns at this time. CM to follow for discharge planning needs that may arise. PCP: No PCP, CRISTINA to provide list to patient Specialists: none Preferred [facility]acy: [facility] Insurance: [facility] Prescription Benefit: yes Living Will/HPOA: yes, daughter Braden Leon LNOK: daughter Living Arrangements: Patient lives with daughter in an in law suite with ramp. Patient states she is independent at home and able to self isolate. Transportation: self/daughter DME/HHC: Patient states she has raised toilet and walker at home. Denies previous HHC. Will monitor for need for home oxygen. Disposition Plan: Patient to discharge home with family support and follow-up plans in place. Adrienne MASSEY, RN, CM
[2020-04-07] MEDS: 0.9% Normal Saline 1,000 ML 50 ML IV (17:09)
[2020-04-07] MEDS: Enoxaparin 80 MG/0.8 ML Syringe SC (21:53)
[2020-04-08] VITALS (9 sets, daily range): BP systolic 110–152; BP diastolic 71–85; PULSE 67–87; RESP 18–24; TEMP 36.4–36.9; O2SAT 92–96
[2020-04-08 07:16] LABS: Absolute Lymphocyte Count 1.56 X10^3/uL (0.83-4.51); Absolute Neutrophil Count 9.6 X10^3/uL (2.0-7.7); Basophil# 0.02 X10^3/uL; Basophil% 0.2 % (0-1); Hematocrit 34.1 % (37-47); Hemoglobin 11.6 g/dL (12.0-15.0); Lymphocyte # 1.56 X10^3/ul (4.0); Lymphocyte % 12.6 % (19-41); Mean Corpuscular Hgb 31.4 pg (27.0-32.0); Mean Corpuscular Volume 92.4 fL (81-99); Mean Platelet Vol. 9.1 fl (6.2-12.0); Monocyte# 0.96 X10^3/uL; Monocyte% 7.8 % (0-10); NRBC Flagged by Analyzer 0 % (0-5); Neutrophil # 9.64 X10^3/uL (2.7-7.7); Neutrophil % 78.1 % (47-70); Platelet Count 358 K/mm3 (150-450); RBC Distribution Width CV 13.7 % (11.6-14.6); RBC Distribution Width SD 43.8 fl (35.1-43.9); Red Blood Count 3.69 M/mm3 (4.2-5.4); White Blood Count 12.3 K/mm3 (4.4-11.0)
[2020-04-08 07:56] LABS: ALB/GLOB Ratio 0.7 RATIO (0.9-2.4); AST(SGOT) 35 U/L (15-37); Alanine Aminotransfer ALT/SGPT 43 U/L (13-56); Albumin, Serum 2.6 g/dL (3.2-5.0); Alkaline Phosphatase 79 U/L (45-117); Anion Gap 9 (5-15); BUN 19 mg/dL (7-18); BUN/Creat Ratio 23.1 RATIO (10-20); Calcium,Total 8.2 mg/dL (8.5-10.1); Chloride 108 mmol/L (98-107); Creatinine, Serum 0.82 mg/dL (0.55-1.02); EST Glomerular Filtration Rate 71 mL/min (>60); Est Glom Filt Rate - Afr Amer 85 mL/min (>60); Estimated Creatinine Clearance 44.51 ml/min; Globulin 3.9 g/dL (2.2-4.2); Glucose 97 mg/dL (74-106); LDH 312 U/L (84-246); Magnesium 2.1 mg/dL (1.6-2.6); Potassium 3.3 mmol/L (3.5-5.1); Protein, Total 6.5 g/dL (6.4-8.2); Sodium Level 140 mmol/L (136-145)
[2020-04-08] MEDS: Enoxaparin 80 MG/0.8 ML Syringe SC ×2 (08:50→20:54)
[2020-04-08] MEDS: dexAMETHasone 4 MG Tablet 6 MG PO (08:51)
[2020-04-08] MEDS: guaiFENesin 1,200 MG Tablet 1200 MG PO ×2 (08:52→20:54)
[2020-04-08] MEDS: Oseltamivir Phosphate 30 MG Capsule PO ×2 (08:52→20:54)
[2020-04-08] MEDS: Multivitamins,Therapeutic Tablet 1 TABLET PO (08:52)
--- NOTE | 2020-04-08 09:16 | PCM.PN.PUL ---
Patient Problems: Active and Suspected Problems Pneumonia (Acute) COVID-19 (Acute) Subjective: The patient was seen and examined at the bedside this morning. Events from the last 24 hours have been reviewed. The patient is currently afebrile, hemodynamically stable and maintaining appropriate oxygen saturations on 5 L/min via nasal cannula. CTA chest obtained yesterday did reveal bilateral pulmonary emboli. Potassium is low this morning at 3.3. The patient is now on therapeutic Lovenox, antimicrobials, Decadron and Tamiflu. Objective: The patient's most recent lab work, culture data and imaging studies have all been personally reviewed. Coronavirus PCR was positive on April 05. Respiratory viral panel was positive for influenza B. - Physical Exam Vitals/I&O's: Vital Signs Temp Pulse Resp BP Pulse Ox 97.7 F L 81 24 H 133/85 H 94 04/08/20 08:45 04/08/20 08:45 04/08/20 08:45 04/08/20 08:45 04/08/20 08:45 Oxygen Flow Rate (L/min) 5 Oxygen Delivery Method Nasal Cannula Weight: 175 lb 0.752 oz Body Mass Index (BMI) 30.9 Intake and Output for Last 24 Hours 04/06/20 04/07/20 04/08/20 23:59 23:59 23:59 Intake Total 1214 / 1414 1185 / 1585 1341.67 / 1341.67 Balance 1214 / 1414 1185 / 1585 1341.67 / 1341.67 General: Alert, Cooperative, No apparent distress HEENT: Atraumatic, PERRLA, Normocephalic Oral: No Gingival or Mucosal Lesions/ Ulcerations Neck: Supple, No Nodes, Trachea Midline Lungs: Diminished Cardiovascular: Regular rate, Regular Rhythm Abdomen: Bowel Sounds Present, Soft, Non Tender Extremities: No clubbing, No cyanosis, No edema Skin: No breakdown Musculoskeletal: No Muscle Wasting Lymphatic: No Cervical, Supraclavicular, or Inguinal Adenopathy Neurological: Cranial nerves II-XII grossly intact, Neuro grossly intact Psych/Mental Status: Alert and oriented to time, place, person, mood and affect Labs (Last 48 Hours) 04/08/20 04/08/20 06:40 06:40 WBC 12.3 H RBC 3.69 L Hgb 11.6 L Hct 34.1 L MCV 92.4 MCH 31.4 MCHC 34.0 RDW Std Deviation 43.8 RDW Coeff of Gabriel 13.7 Plt Count 358 MPV 9.1 Immature Gran % (Auto) 1.300 H Neut % (Auto) 78.1 H Lymph % (Auto) 12.6 L [place] % (Auto) 7.8 Eos % (Auto) 0.0 Baso % (Auto) 0.2 Absolute Neuts (auto) 9.6 H Absolute Lymphs (auto) 1.56 Nucleated RBC % 0 Sodium 140 Potassium 3.3 L Chloride 108 H Carbon Dioxide 23.0 Anion Gap 9 BUN 19 H Creatinine 0.82 Estim Creat Clear Calc 44.51 Est GFR (MDRD) Af Amer 85 Est GFR (MDRD) Non-Af 71 BUN/Creatinine Ratio 23.1 H Glucose 97 Calcium 8.2 L Magnesium 2.1 Total Bilirubin 0.50 AST 35 ALT 43 Alkaline Phosphatase 79 Lactate Dehydrogenase 312 H C-React Prot Ext Range 18.50 H Total Protein 6.5 Albumin 2.6 L Globulin 3.9 Albumin/Globulin Ratio 0.7 L Microbiology 04/07/20 12:47 Sputum, Expectorated/Coughed Gram Stain - Final 04/07/20 12:47 Sputum, Expectorated/Coughed Respiratory Culture - Preliminary Appears to be normal respiratory herbert. Further studies to follow. 04/05/20 14:05 Blood Culture (Wb) - Anticubital Right Blood Culture - Preliminary No growth in 48 hours. 04/05/20 14:00 Blood Culture (Wb) - Anticubital Left Blood Culture - Preliminary No growth in 48 hours. Clinical Impression(s) from Imaging Studies Chest X-Ray 04/05/20 14:15 IMPRESSION: Airspace opacity in the lingula and right lower lobe which is consistent with multilobar pneumonia. Electronically Signed: Leeroy May, at 14:37 EST Tel , Service support , Chest CTA 04/07/20 13:17 IMPRESSION: Multiple bilateral pulmonary emboli in branches of the right and left pulmonary arteries involving both upper and lower lobes. Bilateral pulmonary infiltrates worse in the lower lobes although there is evidence of the patchy infiltrates in both upper lobes worse in the left upper lobe. 2.8 cm x 2.6 cm soft tissue density in the right adrenal gland. Moderate sized hiatal hernia. Electronically Signed: Ton Cullen, at 15:16 EST , Service support , Current Medications Acetaminophen (Acetaminophen 325 Mg Tablet) 650 mg PO Q6H PRN PRN PRN Reason: Pain Score 1-10/Temp > 100.7 F Last Admin: 04/07/20 09:44 Dose: 650 mg Documented by: Dexamethasone (Dexamethasone 4 Mg Tablet) 6 mg PO DAILY COUNT INCLUDES [facility] Stop: 04/15/20 10:01 Last Admin: 04/08/20 08:51 Dose: 6 mg Documented by: Enoxaparin Sodium (Enoxaparin 80 Mg/0.8 Ml Syringe) 80 mg SC BID COUNT INCLUDES [facility] Last Admin: 04/08/20 08:50 Dose: 80 mg Documented by: Guaifenesin (Guaifenesin 1,200 Mg Tablet) 1,200 mg PO BID COUNT INCLUDES THE [facility] Last Admin: 04/08/20 08:52 Dose: 1,200 mg Documented by: Ceftriaxone Sodium 2 gm/ (Sodium Chloride) 50 mls @ 100 mls/hr IV Q24 [facility]CLUDES [facility] Stop: 04/13/20 10:01 Last Admin: 04/08/20 08:49 Dose: 100 mls/hr Documented by: Azithromycin 500 mg/ Dextrose 255 mls @ 250 mls/hr IV Q24 COUNT [facility]CLUDES THE [facility] Stop: 04/11/20 10:01 Last Infusion: 04/07/20 10:51 Dose: Infused Documented by: Sodium Chloride () 250 mls @ 15 mls/hr IV .[id number] PRN PRN Reason: Saline Flush Sodium Chloride () 250 mls @ 15 mls/hr IV .[id number] PRN PRN Reason: Additional IVPB Infusion Sodium Chloride () 250 mls @ 15 mls/hr IV .[id number] PRN PRN Reason: Saline Flush Sodium Chloride () 250 mls @ 15 mls/hr IV .[id number] PRN PRN Reason: Additional IVPB Infusion Sodium Chloride () 1,000 mls @ 50 mls/hr IV .Q20H COUNT INCLUDES THE [facility] Last Infusion: 04/08/20 08:59 Dose: 0 mls/hr Documented by: Ibuprofen (Ibuprofen 400 Mg Tablet) 400 mg PO Q4H PRN PRN PRN Reason: Pain Score 1-10/Temp > 100.7 F Melatonin (Melatonin 3 Mg Tablet) 3 mg PO QHS PRN PRN PRN Reason: INSOMNIA Multivitamins (Multivitamins,Therapeutic Tablet) 1 tablet PO DAILY COUNT INCLUDES THE [facility] Last Admin: 04/08/20 08:52 Dose: 1 tablet Documented by: Ondansetron HCl (Ondansetron 4 Mg/2 Ml Vial) 4 mg IV Q8H PRN PRN PRN Reason: NAUSEA/VOMITING Oseltamivir Phosphate (Oseltamivir Phosphate 30 Mg Capsule) 30 mg PO BID COUNT [facility]CLUDES [facility] Stop: 04/10/20 10:01 Last Admin: 04/08/20 08:52 Dose: 30 mg Documented by: Potassium Chloride (Potassium Chloride 20 Meq Tablet) 40 meq PO DAILYCM COUNT INCLUDES THE [facility] Stop: 04/10/20 08:04 Last Admin: 04/08/20 08:52 Dose: 40 meq Documented by: Sodium Chloride (0.9% Saline Lock 10 Ml Syringe) 10 - 40 ml IV UD PRN PRN Reason: SALINE FLUSH Last Admin: 04/06/20 22:35 Dose: 10 ml Documented by: Medical Necessity - Tobacco Use Smoking Status: Never smoker Assessment/Plan All Active Problems Pneumonia (Acute) COVID-19 (Acute) RECOMMENDATIONS: 1. Continue Decadron 6 mg daily x10 days. 2. Continue empiric antimicrobials, per infectious diseases recommendations. 3. Continue Lovenox as ordered. 4. Wean supplemental oxygen to maintain saturations at or above 90%. 5. Encourage incentive spirometer use and mobilize patient as tolerated. IMPRESSIONS: 1. Acute hypoxemic respiratory failure secondary to combined COVID-19/influenza and/or community-acquired pneumonia and pulmonary emboli The patient essentially presented to the hospital with 2 weeks of Covid-like symptoms. She was also found to be positive for influenza B with radiographic findings concerning for multilobar pneumonia. She is currently maintaining appropriate saturations on supplemental O2 via nasal cannula. Recommend continuing current supportive measures including Decadron 6 mg daily x10 days. In addition to the aforementioned, a CTA chest was obtained and did reveal bilateral pulmonary emboli, for which the patient is therapeutically anticoagulated on Lovenox. Agree with continuing Tamiflu for now. Agree with empiric antimicrobials. Wean supplemental oxygen to maintain saturations at or above 90%. 2. Hypokalemia Electrolyte repletion as ordered. Recheck levels in the morning. This note was generated with [employer] dictation software. It may contain incorrect words, spelling, and punctuation that were not noted in checking the note before signing. Inpatient E&M: 97271 Subs Hosp L3
[2020-04-08] MEDS: 0.9% Normal Saline 1,000 ML 50 ML IV (10:30)
--- NOTE | 2020-04-08 11:24 | PCM.PN.ID ---
Patient Problems: Active and Suspected Problems Pneumonia (Acute) COVID-19 (Acute) Subjective: Feeling a little better, no fever, no sputum - Physical Exam Vitals/I&O's: Vital Signs Temp Pulse Resp BP Pulse Ox 97.5 F L 70 22 H 122/73 H 96 04/08/20 10:39 04/08/20 10:39 04/08/20 10:39 04/08/20 10:39 04/08/20 10:39 Oxygen Flow Rate (L/min) 5 Oxygen Delivery Method Nasal Cannula Weight: 79.4 kg Body Mass Index (BMI) 30.9 Intake and Output for Last 24 Hours 04/06/20 04/07/20 04/08/20 23:59 23:59 23:59 Intake Total 1214 / 1414 1185 / 1585 1409.17 / 1409.17 Balance 1214 / 1414 1185 / 1585 1409.17 / 1409.17 General: Alert, Cooperative, No apparent distress Lungs: Diminished Cardiovascular: Regular rate, Regular Rhythm Abdomen: Soft, Non Tender, Non-Distended Skin: No rashes Microbiology Past 72 Hours 04/07/20 12:47 Sputum, Expectorated/Coughed Gram Stain - Final 04/07/20 12:47 Sputum, Expectorated/Coughed Respiratory Culture - Preliminary Appears to be normal respiratory herbert. Further studies to follow. 04/05/20 14:05 Blood Culture (Wb) - Anticubital Right Blood Culture - Preliminary No growth in 48 hours. 04/05/20 14:00 Blood Culture (Wb) - Anticubital Left Blood Culture - Preliminary No growth in 48 hours. 04/05/20 21:05 Urine, Clean Catch Legionella Antigen - Final 04/05/20 21:05 Urine, Clean Catch Streptococcus pneumoniae Antigen (M - Final 04/05/20 18:15 Mucosa - Nasopharyngeal Influenza Types A,B Direct FA (MIGUEL ÁNGEL) - Final Influenzae B Laboratory Results 04/08/20 06:40: WBC 12.3 H, RBC 3.69 L, Hgb 11.6 L, Hct 34.1 L, MCV 92.4, MCH 31.4, MCHC 34.0, RDW Std Deviation 43.8, RDW Coeff of Gabriel 13.7, Plt Count 358, MPV 9.1, Immature Gran % (Auto) 1.300 H, Neut % (Auto) 78.1 H, Lymph % (Auto) 12.6 L, [place] % (Auto) 7.8, Eos % (Auto) 0.0, Baso % (Auto) 0.2, Absolute Neuts (auto) 9.6 H, Absolute Lymphs (auto) 1.56, Nucleated RBC % 0 04/08/20 06:40: Sodium 140, Potassium 3.3 L, Chloride 108 H, Carbon Dioxide 23.0, Anion Gap 9, BUN 19 H, Creatinine 0.82, Estim Creat Clear Calc 44.51, Est GFR (MDRD) Af Amer 85, Est GFR (MDRD) Non-Af 71, BUN/Creatinine Ratio 23.1 H, Glucose 97, Calcium 8.2 L, Magnesium 2.1, Total Bilirubin 0.50, AST 35, ALT 43, Alkaline Phosphatase 79, Lactate Dehydrogenase 312 H, C-React Prot Ext Range 18.50 H, Total Protein 6.5, Albumin 2.6 L, Globulin 3.9, Albumin/Globulin Ratio 0.7 L Current Medications Acetaminophen (Acetaminophen 325 Mg Tablet) 650 mg PO Q6H PRN PRN PRN Reason: Pain Score 1-10/Temp > 100.7 F Last Admin: 04/07/20 09:44 Dose: 650 mg Documented by: Dexamethasone (Dexamethasone 4 Mg Tablet) 6 mg PO DAILY [facility] Stop: 04/15/20 10:01 Last Admin: 04/08/20 08:51 Dose: 6 mg Documented by: Enoxaparin Sodium (Enoxaparin 80 Mg/0.8 Ml Syringe) 80 mg SC BID [facility] Last Admin: 04/08/20 08:50 Dose: 80 mg Documented by: Guaifenesin (Guaifenesin 1,200 Mg Tablet) 1,200 mg PO BID [facility] Last Admin: 04/08/20 08:52 Dose: 1,200 mg Documented by: Ceftriaxone Sodium 2 gm/ (Sodium Chloride) 50 mls @ 100 mls/hr IV Q24 [facility] Stop: 04/13/20 10:01 Last Infusion: 04/08/20 10:09 Dose: Infused Documented by: Azithromycin 500 mg/ Dextrose 255 mls @ 250 mls/hr IV Q24 [facility] Stop: 04/11/20 10:01 Last Admin: 04/08/20 10:28 Dose: 250 mls/hr Documented by: Sodium Chloride () 250 mls @ 15 mls/hr IV .[id number] PRN PRN Reason: Saline Flush Sodium Chloride () 250 mls @ 15 mls/hr IV .[id number] PRN PRN Reason: Additional IVPB Infusion Sodium Chloride () 250 mls @ 15 mls/hr IV .[id number] PRN PRN Reason: Saline Flush Sodium Chloride () 250 mls @ 15 mls/hr IV .[id number] PRN PRN Reason: Additional IVPB Infusion Sodium Chloride () 1,000 mls @ 50 mls/hr IV .Q20H [facility] Last Admin: 04/08/20 10:30 Dose: 50 mls/hr Documented by: Ibuprofen (Ibuprofen 400 Mg Tablet) 400 mg PO Q4H PRN PRN PRN Reason: Pain Score 1-10/Temp > 100.7 F Melatonin (Melatonin 3 Mg Tablet) 3 mg PO QHS PRN PRN PRN Reason: INSOMNIA Multivitamins (Multivitamins,Therapeutic Tablet) 1 tablet PO DAILY [facility] Last Admin: 04/08/20 08:52 Dose: 1 tablet Documented by: Ondansetron HCl (Ondansetron 4 Mg/2 Ml Vial) 4 mg IV Q8H PRN PRN PRN Reason: NAUSEA/VOMITING Oseltamivir Phosphate (Oseltamivir Phosphate 30 Mg Capsule) 30 mg PO BID [facility] Stop: 04/10/20 10:01 Last Admin: 04/08/20 08:52 Dose: 30 mg Documented by: Potassium Chloride (Potassium Chloride 20 Meq Tablet) 40 meq PO DAILYCM [facility] Stop: 04/10/20 08:04 Last Admin: 04/08/20 08:52 Dose: 40 meq Documented by: Sodium Chloride (0.9% Saline Lock 10 Ml Syringe) 10 - 40 ml IV UD PRN PRN Reason: SALINE FLUSH Last Admin: 04/06/20 22:35 Dose: 10 ml Documented by: Medical Necessity - Tobacco Use Smoking Status: Never smoker Route of nutrition/ use of supplements: [] Nutritional Intake: [] IV Site: [] Siddiqui Catheter: [] - Assessment/Plan Antibiotics: [] Assessment/Plan: [] Active and Suspected Problems Pneumonia (Acute) Sounds like covid starting two weeks prior to admit, improved, then worsened over past 4-5 days. Flu B Ag (+), but doubt this is true given lack of myalgia/fatigue/n/v/d. No exposure history for flu from her family and she has been quarantining at home since first becoming ill. Ok to continue tamiflu. On dex, empiric CAP coverage with azithro/ceftriaxone, and now full dose lovenox for bilateral PEs seen on CTA. Will follow, d/w Dr. Wilkes
--- NOTE | 2020-04-08 11:30 | PN_ITS ---
Patient Problems: Active and Suspected Problems Pneumonia (Acute) COVID-19 (Acute) Reason for Visit: Follow-up for acute hypoxic respiratory failure, bilateral PE and pneumonia secondary to COVID-19 Objective: Patient feels slightly better as compared to yesterday. No fever. Blood pressure is controlled. Pulse ox 95% on 3 to 5 L of oxygen Physical exam General: Alert, Oriented x3, Cooperative HEENT: Atraumatic, PERRLA, EOMI, Normocephalic Oral: No Gingival or Mucosal Lesions/ Ulcerations Neck: Supple, No JVD, Negative Carotid Bruits Lungs: Air entry diminished in bilateral lung bases. Bilateral coarse crepitation present in the lung bases. Mild tachypnea but severe hypoxia Cardiovascular: Regular rate, Regular Rhythm, Normal S1, Normal S2, No murmurs Abdomen: Bowel Sounds Present, Soft, Non Tender, Non-Distended : No renal angle tenderness. No suprapubic tenderness. Extremities: No edema, Capillary Refill Less than 3 Seconds Skin: No rashes, No breakdown Musculoskeletal: No Tenderness to Palpation of Joints or Extremities Neurological: Cranial nerves II-XII grossly intact, Deep Tendon Reflexes 2+/4 and Symmetrical, Neuro grossly intact Psych/Mental Status: Normal Affect, Appropriate. Vitals/I&O's: Vital Signs Temp Pulse Resp BP Pulse Ox 97.5 F L 70 22 H 122/73 H 96 04/08/20 10:39 04/08/20 10:39 04/08/20 10:39 04/08/20 10:39 04/08/20 10:39 Oxygen Flow Rate (L/min) 5 Oxygen Delivery Method Nasal Cannula Weight: 175 lb 0.752 oz Body Mass Index (BMI) 30.9 Intake and Output for Last 24 Hours 04/06/20 04/07/20 04/08/20 23:59 23:59 23:59 Intake Total 1214 / 1414 1185 / 1585 1409.17 / 1409.17 Balance 1214 / 1414 1185 / 1585 1409.17 / 1409.17 Microbiology Past 72 Hours 04/07/20 12:47 Sputum, Expectorated/Coughed Gram Stain - Final 04/07/20 12:47 Sputum, Expectorated/Coughed Respiratory Culture - Preliminary Appears to be normal respiratory herbert. Further studies to follow. 04/05/20 14:05 Blood Culture (Wb) - Anticubital Right Blood Culture - Preliminary No growth in 48 hours. 04/05/20 14:00 Blood Culture (Wb) - Anticubital Left Blood Culture - Preliminary No growth in 48 hours. 04/05/20 21:05 Urine, Clean Catch Legionella Antigen - Final 04/05/20 21:05 Urine, Clean Catch Streptococcus pneumoniae Antigen (M - Final 04/05/20 18:15 Mucosa - Nasopharyngeal Influenza Types A,B Direct FA (MIGUEL ÁNGEL) - Final Influenzae B Laboratory Results 04/08/20 06:40: WBC 12.3 H, RBC 3.69 L, Hgb 11.6 L, Hct 34.1 L, MCV 92.4, MCH 31.4, MCHC 34.0, RDW Std Deviation 43.8, RDW Coeff of Gabriel 13.7, Plt Count 358, MPV 9.1, Immature Gran % (Auto) 1.300 H, Neut % (Auto) 78.1 H, Lymph % (Auto) 12.6 L, [place] % (Auto) 7.8, Eos % (Auto) 0.0, Baso % (Auto) 0.2, Absolute Neuts (auto) 9.6 H, Absolute Lymphs (auto) 1.56, Nucleated RBC % 0 04/08/20 06:40: Sodium 140, Potassium 3.3 L, Chloride 108 H, Carbon Dioxide 23.0, Anion Gap 9, BUN 19 H, Creatinine 0.82, Estim Creat Clear Calc 44.51, Est GFR (MDRD) Af Amer 85, Est GFR (MDRD) Non-Af 71, BUN/Creatinine Ratio 23.1 H, Glucose 97, Calcium 8.2 L, Magnesium 2.1, Total Bilirubin 0.50, AST 35, ALT 43, Alkaline Phosphatase 79, Lactate Dehydrogenase 312 H, C-React Prot Ext Range 18.50 H, Total Protein 6.5, Albumin 2.6 L, Globulin 3.9, Albumin/Globulin Ratio 0.7 L Current Medications Acetaminophen (Acetaminophen 325 Mg Tablet) 650 mg PO Q6H PRN PRN PRN Reason: Pain Score 1-10/Temp > 100.7 F Last Admin: 04/07/20 09:44 Dose: 650 mg Documented by: Dexamethasone (Dexamethasone 4 Mg Tablet) 6 mg PO DAILY [facility] Stop: 04/15/20 10:01 Last Admin: 04/08/20 08:51 Dose: 6 mg Documented by: Enoxaparin Sodium (Enoxaparin 80 Mg/0.8 Ml Syringe) 80 mg SC BID [facility] Last Admin: 04/08/20 08:50 Dose: 80 mg Documented by: Guaifenesin (Guaifenesin 1,200 Mg Tablet) 1,200 mg PO BID [facility] Last Admin: 04/08/20 08:52 Dose: 1,200 mg Documented by: Ceftriaxone Sodium 2 gm/ (Sodium Chloride) 50 mls @ 100 mls/hr IV Q24 [facility] Stop: 04/13/20 10:01 Last Infusion: 04/08/20 10:09 Dose: Infused Documented by: Sodium Chloride () 250 mls @ 15 mls/hr IV .[id number] PRN PRN Reason: Saline Flush Sodium Chloride () 250 mls @ 15 mls/hr IV .[id number] PRN PRN Reason: Additional IVPB Infusion Sodium Chloride () 250 mls @ 15 mls/hr IV .[id number] PRN PRN Reason: Saline Flush Sodium Chloride () 250 mls @ 15 mls/hr IV .[id number] PRN PRN Reason: Additional IVPB Infusion Sodium Chloride () 1,000 mls @ 50 mls/hr IV .Q20H [facility] Last Admin: 04/08/20 10:30 Dose: 50 mls/hr Documented by: Ibuprofen (Ibuprofen 400 Mg Tablet) 400 mg PO Q4H PRN PRN PRN Reason: Pain Score 1-10/Temp > 100.7 F Melatonin (Melatonin 3 Mg Tablet) 3 mg PO QHS PRN PRN PRN Reason: INSOMNIA Multivitamins (Multivitamins,Therapeutic Tablet) 1 tablet PO DAILY [facility] Last Admin: 04/08/20 08:52 Dose: 1 tablet Documented by: Ondansetron HCl (Ondansetron 4 Mg/2 Ml Vial) 4 mg IV Q8H PRN PRN PRN Reason: NAUSEA/VOMITING Oseltamivir Phosphate (Oseltamivir Phosphate 30 Mg Capsule) 30 mg PO BID [facility] Stop: 04/10/20 10:01 Last Admin: 04/08/20 08:52 Dose: 30 mg Documented by: Potassium Chloride (Potassium Chloride 20 Meq Tablet) [facility] Stop: 04/10/20 08:04 Last Admin: 04/08/20 08:52 Dose: 40 meq Documented by: Sodium Chloride (0.9% Saline Lock 10 Ml Syringe) 10 - 40 ml IV UD PRN PRN Reason: SALINE FLUSH Last Admin: 04/06/20 22:35 Dose: 10 ml Documented by: STROKE Vital Signs/Narrative: Vital Signs Temp Pulse Resp BP Pulse Ox 04/08/20 10:39 97.5 F L 70 22 H 122/73 H 96 04/08/20 08:45 97.7 F L 81 24 H 133/85 H 94 Medical Necessity - Tobacco Use Smoking Status: Never smoker Assessment/Plan All Active Problems Pneumonia (Acute) COVID-19 (Acute) 1. Acute hypoxic respiratory failure secondary to acute COVID-19 pneumonia/influenza antigen B with possible bacterial superinfection and bilateral lobar pulmonary embolism: Patient is being admitted on Covid cohort floor. Seen by ID and discussed with him. CTPA is ordered to rule out PE. Currently on ceftriaxone and azithromycin. On Decadron and Tamiflu. Mucinex and PEP. 04/08: CTPA chest reviewed on 04/07. Multiple bilateral lobar pulmonary emboli in the right and left pulmonary arteries on both upper and lower lobes. Bilateral pneumonic consolidation/infiltrates bilaterally worse on the lower lobes. Patient had 4 days of azithromycin therefore discontinued. Continue ceftriaxone and Tamiflu and Decadron. 2. Acute COVID-19 pneumonia with hypoxia: As mentioned. Patient does not have typical influenza symptoms. 3. Acute community-acquired pneumonia, multilobular, likely secondary to suspected gram-positive organisms Chest x-ray showed airspace opacity in the lingula and right lower lobe 4. Acute influenza, started on Tamiflu 5. Mild hypokalemia: Potassium is replaced. Check potassium and magnesium tomorrow a.m. DVT PPx- Lovenox SC BID Microbiology Past 72 Hours 04/05/20 14:05 Blood Culture (Wb) - Anticubital Right Blood Culture - Preliminary No growth in 48 hours. 04/05/20 14:00 Blood Culture (Wb) - Anticubital Left Blood Culture - Preliminary No growth in 48 hours. 04/05/20 21:05 Urine, Clean Catch Legionella Antigen - Final 04/05/20 21:05 Urine, Clean Catch Streptococcus pneumoniae Antigen (M - Final 11/14/20 18:15 Mucosa - Nasopharyngeal Influenza Types A,B Direct FA (MIGUEL ÁNGEL) - Final Influenzae B Clinical Impression(s) from Imaging Studies Chest X-Ray 04/05/20 14:15 IMPRESSION: Airspace opacity in the lingula and right lower lobe which is consistent with multilobar pneumonia. Chest CTA 04/07/20 13:17 IMPRESSION: Multiple bilateral pulmonary emboli in branches of the right and left pulmonary arteries involving both upper and lower lobes. Bilateral pulmonary infiltrates worse in the lower lobes although there is evidence of the patchy infiltrates in both upper lobes worse in the left upper lobe. 2.8 cm x 2.6 cm soft tissue density in the right adrenal gland. Moderate sized hiatal hernia. Electronically Signed: Ton Cullen, at 15:16 EST , Service support , Inpatient E&M: [id number] Subs Hosp L2
[2020-04-09] VITALS (9 sets, daily range): BP systolic 126–142; BP diastolic 76–88; PULSE 66–93; RESP 20–22; TEMP 36.2–37.1; O2SAT 91–97
[2020-04-09] MEDS: 0.9% Normal Saline 1,000 ML 50 ML IV (04:59)
[2020-04-09 06:10] LABS: Absolute Lymphocyte Count 1.59 X10^3/uL (0.83-4.51); Absolute Neutrophil Count 8.1 X10^3/uL (2.0-7.7); Basophil# 0.02 X10^3/uL; Basophil% 0.2 % (0-1); Hematocrit 33.6 % (37-47); Hemoglobin 10.8 g/dL (12.0-15.0); Lymphocyte # 1.59 X10^3/ul (4.0); Lymphocyte % 14.4 % (19-41); Mean Corp Hgb Conc 32.1 g/dL (32-36); Mean Corpuscular Hgb 28.7 pg (27.0-32.0); Mean Corpuscular Volume 89.4 fL (81-99); Mean Platelet Vol. 8.8 fl (6.2-12.0); Monocyte# 1.05 X10^3/uL; Monocyte% 9.5 % (0-10); NRBC Flagged by Analyzer 0 % (0-5); Neutrophil # 8.14 X10^3/uL (2.7-7.7); Neutrophil % 73.9 % (47-70); Platelet Count 310 K/mm3 (150-450); RBC Distribution Width CV 13.2 % (11.6-14.6); RBC Distribution Width SD 43.7 fl (35.1-43.9); Red Blood Count 3.76 M/mm3 (4.2-5.4)
--- NOTE | 2020-04-09 10:19 | PCM.PN.PUL ---
Patient Problems: Active and Suspected Problems Pneumonia (Acute) COVID-19 (Acute) Subjective: The patient was seen and examined at the bedside this morning. Events from the last 24 hours have been reviewed. The patient is currently afebrile, hemodynamically stable and maintaining appropriate oxygen saturations on 4 L/min via nasal cannula. The patient remains on antimicrobials, Decadron, Tamiflu and therapeutic Lovenox. Objective: The patient's most recent lab work, culture data and imaging studies have all been personally reviewed. Coronavirus PCR was positive on April 05. Respiratory viral panel was positive for influenza B. - Physical Exam Vitals/I&O's: Vital Signs Temp Pulse Resp BP Pulse Ox 98.8 F 66 20 H 142/76 H 94 04/09/20 05:01 04/09/20 05:01 04/09/20 05:01 04/09/20 05:01 04/09/20 08:00 Oxygen Flow Rate (L/min) 4 Oxygen Delivery Method Nasal Cannula Weight: 175 lb 0.752 oz Body Mass Index (BMI) 30.9 Intake and Output for Last 24 Hours 04/07/20 04/08/20 04/09/20 23:59 23:59 23:59 Intake Total 1185 / 1585 2554.17 / 2554.17 1044.17 / 1044.17 Output Total Balance 1185 / 1585 2553.17 / 2553.17 1044.17 / 1044.17 General: Alert, Cooperative, No apparent distress HEENT: Atraumatic, PERRLA, Normocephalic Oral: No Gingival or Mucosal Lesions/ Ulcerations Neck: Supple Lungs: No rhonchi, No wheeze, No rales, Diminished, - - No conversational dyspnea Cardiovascular: Regular rate, Regular Rhythm, No murmurs Abdomen: Bowel Sounds Present, Soft, Non Tender Extremities: No clubbing, No cyanosis, No edema Skin: No breakdown Musculoskeletal: No Tenderness to Palpation of Joints or Extremities Lymphatic: No Cervical, Supraclavicular, or Inguinal Adenopathy Neurological: Cranial nerves II-XII grossly intact, Neuro grossly intact Psych/Mental Status: Normal Affect, Appropriate Labs (Last 48 Hours) 04/08/20 04/08/20 04/09/20 06:40 06:40 05:54 WBC 12.3 H 11.0 RBC 3.69 L 3.76 L Hgb 11.6 L 10.8 L Hct 34.1 L 33.6 L MCV 92.4 89.4 MCH 31.4 28.7 MCHC 34.0 32.1 D RDW Std Deviation 43.8 43.7 RDW Coeff of Gabriel 13.7 13.2 Plt Count 358 310 MPV 9.1 8.8 Immature Gran % (Auto) 1.300 H 2.000 H Neut % (Auto) 78.1 H 73.9 H Lymph % (Auto) 12.6 L 14.4 L Gilpin % (Auto) 7.8 9.5 Eos % (Auto) 0.0 0.0 Baso % (Auto) 0.2 0.2 Absolute Neuts (auto) 9.6 H 8.1 H Absolute Lymphs (auto) 1.56 1.59 Nucleated RBC % 0 0 Sodium 140 Potassium 3.3 L Chloride 108 H Carbon Dioxide 23.0 Anion Gap 9 BUN 19 H Creatinine 0.82 Estim Creat Clear Calc 44.51 Est GFR (MDRD) Af Amer 85 Est GFR (MDRD) Non-Af 71 BUN/Creatinine Ratio 23.1 H Glucose 97 Calcium 8.2 L Magnesium 2.1 Total Bilirubin 0.50 AST 35 ALT 43 Alkaline Phosphatase 79 Lactate Dehydrogenase 312 H C-React Prot Ext Range 18.50 H Total Protein 6.5 Albumin 2.6 L Globulin 3.9 Albumin/Globulin Ratio 0.7 L 04/09/20 05:54 WBC RBC Hgb Hct MCV MCH MCHC RDW Std Deviation RDW Coeff of Gabriel Plt Count MPV Immature Gran % (Auto) Neut % (Auto) Lymph % (Auto) [place] % (Auto) Eos % (Auto) Baso % (Auto) Absolute Neuts (auto) Absolute Lymphs (auto) Nucleated RBC % Sodium Potassium Chloride Carbon Dioxide Anion Gap BUN Creatinine Estim Creat Clear Calc Est GFR (MDRD) Af Amer Est GFR (MDRD) Non-Af BUN/Creatinine Ratio Glucose Calcium Magnesium 2.0 Total Bilirubin AST ALT Alkaline Phosphatase Lactate Dehydrogenase C-React Prot Ext Range Total Protein Albumin Globulin Albumin/Globulin Ratio Microbiology 04/07/20 12:47 Sputum, Expectorated/Coughed Gram Stain - Final 04/07/20 12:47 Sputum, Expectorated/Coughed Respiratory Culture - Final Presumptive C albicans 04/05/20 14:05 Blood Culture (Wb) - Anticubital Right Blood Culture - Preliminary No growth in 48 hours. 04/05/20 14:00 Blood Culture (Wb) - Anticubital Left Blood Culture - Preliminary No growth in 48 hours. Clinical Impression(s) from Imaging Studies Chest X-Ray 04/05/20 14:15 IMPRESSION: Airspace opacity in the lingula and right lower lobe which is consistent with multilobar pneumonia. Electronically Signed: Leeroy May, at 14:37 EST Tel , Service support , Chest CTA 04/07/20 13:17 IMPRESSION: Multiple bilateral pulmonary emboli in branches of the right and left pulmonary arteries involving both upper and lower lobes. Bilateral pulmonary infiltrates worse in the lower lobes although there is evidence of the patchy infiltrates in both upper lobes worse in the left upper lobe. 2.8 cm x 2.6 cm soft tissue density in the right adrenal gland. Moderate sized hiatal hernia. Electronically Signed: Ton Cullen, at 15:16 EST , Service support , Current Medications Acetaminophen (Acetaminophen 325 Mg Tablet) 650 mg PO Q6H PRN PRN PRN Reason: Pain Score 1-10/Temp > 100.7 F Last Admin: 04/07/20 09:44 Dose: 650 mg Documented by: Dexamethasone (Dexamethasone 4 Mg Tablet) 6 mg PO DAILY [facility] Stop: 04/15/20 10:01 Last Admin: 04/08/20 08:51 Dose: 6 mg Documented by: Enoxaparin Sodium (Enoxaparin 80 Mg/0.8 Ml Syringe) 80 mg SC BID [facility] Last Admin: 04/08/20 20:54 Dose: 80 mg Documented by: Guaifenesin (Guaifenesin 1,200 Mg Tablet) 1,200 mg PO BID [facility] Last Admin: 04/08/20 20:54 Dose: 1,200 mg Documented by: Ceftriaxone Sodium 2 gm/ (Sodium Chloride) 50 mls @ 100 mls/hr IV Q24 [facility] Stop: 04/13/20 10:01 Last Infusion: 04/08/20 10:09 Dose: Infused Documented by: Sodium Chloride () 250 mls @ 15 mls/hr IV .[id number] PRN PRN Reason: Saline Flush Sodium Chloride () 250 mls @ 15 mls/hr IV .[id number] PRN PRN Reason: Additional IVPB Infusion Sodium Chloride () 250 mls @ 15 mls/hr IV .[id number] PRN PRN Reason: Saline Flush Sodium Chloride () 250 mls @ 15 mls/hr IV .[id number] PRN PRN Reason: Additional IVPB Infusion Ibuprofen (Ibuprofen 400 Mg Tablet) 400 mg PO Q4H PRN PRN PRN Reason: Pain Score 1-10/Temp > 100.7 F Melatonin (Melatonin 3 Mg Tablet) 3 mg PO QHS PRN PRN PRN Reason: INSOMNIA Multivitamins (Multivitamins,Therapeutic Tablet) 1 tablet PO DAILY [facility] Last Admin: 04/08/20 08:52 Dose: 1 tablet Documented by: Ondansetron HCl (Ondansetron 4 Mg/2 Ml Vial) 4 mg IV Q8H PRN PRN PRN Reason: NAUSEA/VOMITING Oseltamivir Phosphate (Oseltamivir Phosphate 30 Mg Capsule) 30 mg PO BID [facility] Stop: 04/10/20 10:01 Last Admin: 04/08/20 20:54 Dose: 30 mg Documented by: Potassium Chloride (Potassium Chloride 20 Meq Tablet) 40 meq PO DAILYCM [facility] Stop: 04/10/20 08:04 Last Admin: 04/08/20 08:52 Dose: 40 meq Documented by: Sodium Chloride (0.9% Saline Lock 10 Ml Syringe) 10 - 40 ml IV UD PRN PRN Reason: SALINE FLUSH Last Admin: 04/06/20 22:35 Dose: 10 ml Documented by: Medical Necessity - Tobacco Use Smoking Status: Never smoker Assessment/Plan All Active Problems Pneumonia (Acute) COVID-19 (Acute) RECOMMENDATIONS: 1. Continue Decadron 6 mg daily x10 days. 2. Continue empiric antimicrobials, per infectious diseases recommendations. 3. Continue Lovenox as ordered. 4. Wean supplemental oxygen to maintain saturations at or above 90%. 5. Encourage incentive spirometer use and mobilize patient as tolerated. IMPRESSIONS: 1. Acute hypoxemic respiratory failure secondary to combined COVID-19/influenza and/or community-acquired pneumonia and pulmonary emboli The patient essentially presented to the hospital with 2 weeks of Covid-like symptoms. She was also found to be positive for influenza B with radiographic findings concerning for multilobar pneumonia. She is currently maintaining appropriate saturations on supplemental O2 via nasal cannula. Recommend continuing current supportive measures including Decadron 6 mg daily x10 days. In addition to the aforementioned, a CTA chest was obtained and did reveal bilateral pulmonary emboli, for which the patient is therapeutically anticoagulated on Lovenox. Agree with continuing Tamiflu for now. Agree with empiric antimicrobials. Wean supplemental oxygen to maintain saturations at or above 90%. This note was generated with [employer] dictation software. It may contain incorrect words, spelling, and punctuation that were not noted in checking the note before signing. Inpatient E&M: 38507 Subs Hosp L2
[2020-04-09] MEDS: guaiFENesin 1,200 MG Tablet 1200 MG PO ×2 (10:26→20:37)
[2020-04-09] MEDS: dexAMETHasone 4 MG Tablet 6 MG PO (10:26)
[2020-04-09] MEDS: Enoxaparin 80 MG/0.8 ML Syringe SC ×2 (10:27→20:37)
[2020-04-09] MEDS: Oseltamivir Phosphate 30 MG Capsule PO ×2 (10:27→20:37)
[2020-04-09] MEDS: Multivitamins,Therapeutic Tablet 1 TABLET PO (10:28)
--- NOTE | 2020-04-09 11:06 | PN_ITS ---
Patient Problems: Active and Suspected Problems Pneumonia (Acute) COVID-19 (Acute) Reason for Visit: Acute bilateral COVID-19 pneumonia with acute hypoxic respiratory failure Objective: No fever or chills. Patient on 5 L of oxygen. Has cough with little yellowish sputum, thick in consistency. Denies any worsening of shortness of breath as compared to yesterday. No headache. Denies nausea, vomiting. Physical exam General: Alert, Oriented x3, Cooperative HEENT: Atraumatic, PERRLA, EOMI, Normocephalic Oral: No Gingival or Mucosal Lesions/ Ulcerations Neck: Supple, No JVD, Negative Carotid Bruits Lungs: Air entry diminished in bilateral lung bases. Mild expiratory rhonchi. On 5 L of oxygen. Cardiovascular: Regular rate, Regular Rhythm, Normal S1, Normal S2, No murmurs Abdomen: Bowel Sounds Present, Soft, Non Tender, Non-Distended : No renal angle tenderness. No suprapubic tenderness. Extremities: No edema, Capillary Refill Less than 3 Seconds Skin: No rashes, No breakdown Musculoskeletal: No Tenderness to Palpation of Joints or Extremities Neurological: Cranial nerves II-XII grossly intact, Deep Tendon Reflexes 2+/4 and Symmetrical, Neuro grossly intact Psych/Mental Status: Normal Affect, Appropriate. Vitals/I&O's: Vital Signs Temp Pulse Resp BP Pulse Ox 97.3 F L 84 22 H 137/80 H 93 04/09/20 10:32 04/09/20 10:32 04/09/20 10:32 04/09/20 10:32 04/09/20 10:32 Oxygen Flow Rate (L/min) 5 Oxygen Delivery Method Nasal Cannula Weight: 175 lb 0.752 oz Body Mass Index (BMI) 30.9 Intake and Output for Last 24 Hours 04/07/20 04/08/20 04/09/20 23:59 23:59 23:59 Intake Total 1185 / 1585 2554.17 / 2554.17 1044.17 / 1044.17 Output Total Balance 1185 / 1585 2553.17 / 2553.17 1044.17 / 1044.17 Microbiology Past 72 Hours 04/07/20 12:47 Sputum, Expectorated/Coughed Gram Stain - Final 04/07/20 12:47 Sputum, Expectorated/Coughed Respiratory Culture - Final Presumptive C albicans 04/05/20 14:05 Blood Culture (Wb) - Anticubital Right Blood Culture - Preliminary No growth in 48 hours. 04/05/20 14:00 Blood Culture (Wb) - Anticubital Left Blood Culture - Preliminary No growth in 48 hours. Laboratory Results 04/09/20 05:54: WBC 11.0, RBC 3.76 L, Hgb 10.8 L, Hct 33.6 L, MCV 89.4, MCH 28.7, MCHC 32.1 D, RDW Std Deviation 43.7, RDW Coeff of Gabriel 13.2, Plt Count 310, MPV 8.8, Immature Gran % (Auto) 2.000 H, Neut % (Auto) 73.9 H, Lymph % (Auto) 14.4 L, [place] % (Auto) 9.5, Eos % (Auto) 0.0, Baso % (Auto) 0.2, Absolute Neuts (auto) 8.1 H, Absolute Lymphs (auto) 1.59, Nucleated RBC % 0 04/09/20 05:54: Magnesium 2.0 Current Medications Acetaminophen (Acetaminophen 325 Mg Tablet) 650 mg PO Q6H PRN PRN PRN Reason: Pain Score 1-10/Temp > 100.7 F Last Admin: 04/07/20 09:44 Dose: 650 mg Documented by: Dexamethasone (Dexamethasone 4 Mg Tablet) 6 mg PO DAILY [facility] Stop: 04/15/20 10:01 Last Admin: 04/09/20 10:26 Dose: 6 mg Documented by: Enoxaparin Sodium (Enoxaparin 80 Mg/0.8 Ml Syringe) 80 mg SC BID [facility] Last Admin: 04/09/20 10:27 Dose: 80 mg Documented by: Guaifenesin (Guaifenesin 1,200 Mg Tablet) 1,200 mg PO BID [facility] Last Admin: 04/09/20 10:26 Dose: 1,200 mg Documented by: Ceftriaxone Sodium 2 gm/ (Sodium Chloride) 50 mls @ 100 mls/hr IV Q24 [facility] Stop: 04/13/20 10:01 Last Admin: 04/09/20 10:25 Dose: 100 mls/hr Documented by: Sodium Chloride () 250 mls @ 15 mls/hr IV .[id number] PRN PRN Reason: Saline Flush Sodium Chloride () 250 mls @ 15 mls/hr IV .[id number] PRN PRN Reason: Additional IVPB Infusion Sodium Chloride () 250 mls @ 15 mls/hr IV .[id number] PRN PRN Reason: Saline Flush Sodium Chloride () 250 mls @ 15 mls/hr IV .[id number] PRN PRN Reason: Additional IVPB Infusion Ibuprofen (Ibuprofen 400 Mg Tablet) 400 mg PO Q4H PRN PRN PRN Reason: Pain Score 1-10/Temp > 100.7 F Melatonin (Melatonin 3 Mg Tablet) 3 mg PO QHS PRN PRN PRN Reason: INSOMNIA Multivitamins (Multivitamins,Therapeutic Tablet) 1 tablet PO DAILY [facility] Last Admin: 04/09/20 10:28 Dose: 1 tablet Documented by: Ondansetron HCl (Ondansetron 4 Mg/2 Ml Vial) 4 mg IV Q8H PRN PRN PRN Reason: NAUSEA/VOMITING Oseltamivir Phosphate (Oseltamivir Phosphate 30 Mg Capsule) 30 mg PO BID [facility] Stop: 04/10/20 10:01 Last Admin: 04/09/20 10:27 Dose: 30 mg Documented by: Potassium Chloride (Potassium Chloride 20 Meq Tablet) 40 meq PO DAILYCM [facility] Stop: 04/10/20 08:04 Last Admin: 04/09/20 10:28 Dose: 40 meq Documented by: Sodium Chloride (0.9% Saline Lock 10 Ml Syringe) 10 - 40 ml IV UD PRN PRN Reason: SALINE FLUSH Last Admin: 04/06/20 22:35 Dose: 10 ml Documented by: STROKE Vital Signs/Narrative: Vital Signs Temp Pulse Resp BP Pulse Ox 04/09/20 10:32 97.3 F L 84 22 H 137/80 H 93 04/09/20 09:00 74 92 04/09/20 08:00 94 Medical Necessity - Tobacco Use Smoking Status: Never smoker Assessment/Plan All Active Problems Pneumonia (Acute) COVID-19 (Acute) 1. Acute hypoxic respiratory failure secondary to acute COVID-19 pneumonia/influenza antigen B with possible bacterial superinfection and bilateral lobar pulmonary embolism: Patient is being admitted on Covid cohort floor. Seen by ID and discussed with him. CTPA is ordered to rule out PE. Currently on ceftriaxone and azithromycin. On Decadron and Tamiflu. Mucinex and PEP. 04/08: CTPA chest reviewed on 04/07. Multiple bilateral lobar pulmonary emboli in the right and left pulmonary arteries on both upper and lower lobes. Bilateral pneumonic consolidation/infiltrates bilaterally worse on the lower lobes. Patient had 4 days of azithromycin therefore discontinued. Continue ceftriaxone and Tamiflu and Decadron. Clinical update was given to the patient daughter 04/09: WBC count 11,000 slightly improved. H&H is stable. No fever since admission. Heart rate and blood pressure controlled. Continue above treatment. Clinical update was given to the patient's daughter Ms. Maggy Purcell, [phone] 2. Acute COVID-19 pneumonia with hypoxia: As mentioned. Patient does not have typical influenza symptoms. 3. Acute community-acquired pneumonia, multilobular, likely secondary to suspected gram-positive organisms Chest x-ray showed airspace opacity in the lingula and right lower lobe 4. Acute influenza, started on Tamiflu 5. Mild hypokalemia: Potassium is being replaced. Magnesium 2.0. DVT PPx- Lovenox SC BID . Microbiology Past 72 Hours 04/07/20 12:47 Sputum, Expectorated/Coughed Gram Stain - Final 04/07/20 12:47 Sputum, Expectorated/Coughed Respiratory Culture - Final Presumptive C albicans 04/05/20 14:05 Blood Culture (Wb) - Anticubital Right Blood Culture - Preliminary No growth in 48 hours. 04/05/20 14:00 Blood Culture (Wb) - Anticubital Left Blood Culture - Preliminary No growth in 48 hours. Laboratory Results 04/09/20 05:54: WBC 11.0, RBC 3.76 L, Hgb 10.8 L, Hct 33.6 L, MCV 89.4, MCH 28.7, MCHC 32.1 D, RDW Std Deviation 43.7, RDW Coeff of Gabriel 13.2, Plt Count 310, MPV 8.8, Immature Gran % (Auto) 2.000 H, Neut % (Auto) 73.9 H, Lymph % (Auto) 14.4 L, [place] % (Auto) 9.5, Eos % (Auto) 0.0, Baso % (Auto) 0.2, Absolute Neuts (auto) 8.1 H, Absolute Lymphs (auto) 1.59, Nucleated RBC % 0 04/09/20 05:54: Magnesium 2.0 Clinical Impression(s) from Imaging Studies Chest X-Ray 04/05/20 14:15 IMPRESSION: Airspace opacity in the lingula and right lower lobe which is consistent with multilobar pneumonia. Chest CTA 04/07/20 13:17 IMPRESSION: Multiple bilateral pulmonary emboli in branches of the right and left pulmonary arteries involving both upper and lower lobes. Bilateral pulmonary infiltrates worse in the lower lobes although there is evidence of the patchy infiltrates in both upper lobes worse in the left upper lobe. 2.8 cm x 2.6 cm soft tissue density in the right adrenal gland. Moderate sized hiatal hernia. Electronically Signed: Ton Cullen, at 15:16 EST , Service support , Inpatient E&M: [id number] Subs Hosp L2
--- NOTE | 2020-04-09 15:25 | PCM.PN.ID ---
Patient Problems: Active and Suspected Problems Pneumonia (Acute) COVID-19 (Acute) Subjective: Feeling about the same, no fever, breathing better - Physical Exam Vitals/I&O's: Vital Signs Temp Pulse Resp BP Pulse Ox 97.3 F L 84 22 H 137/80 H 91 04/09/20 10:32 04/09/20 10:32 04/09/20 10:32 04/09/20 10:32 04/09/20 14:07 Oxygen Flow Rate (L/min) 5 Oxygen Delivery Method Nasal Cannula Weight: 79.4 kg Body Mass Index (BMI) 30.9 Intake and Output for Last 24 Hours 04/07/20 04/08/20 04/09/20 23:59 23:59 23:59 Intake Total 1185 / 1585 2554.17 / 2554.17 1614.17 / 1614.17 Output Total Balance 1185 / 1585 2553.17 / 2553.17 1614.17 / 1614.17 General: Alert, Cooperative, No apparent distress Lungs: Diminished Cardiovascular: Regular rate, Regular Rhythm Abdomen: Soft, Non Tender, Non-Distended Skin: No rashes Microbiology Past 72 Hours 04/07/20 12:47 Sputum, Expectorated/Coughed Gram Stain - Final 04/07/20 12:47 Sputum, Expectorated/Coughed Respiratory Culture - Final Presumptive C albicans 04/05/20 14:05 Blood Culture (Wb) - Anticubital Right Blood Culture - Preliminary No growth in 48 hours. 04/05/20 14:00 Blood Culture (Wb) - Anticubital Left Blood Culture - Preliminary No growth in 48 hours. Laboratory Results 04/09/20 05:54: WBC 11.0, RBC 3.76 L, Hgb 10.8 L, Hct 33.6 L, MCV 89.4, MCH 28.7, MCHC 32.1 D, RDW Std Deviation 43.7, RDW Coeff of Gabriel 13.2, Plt Count 310, MPV 8.8, Immature Gran % (Auto) 2.000 H, Neut % (Auto) 73.9 H, Lymph % (Auto) 14.4 L, [place]eves % (Auto) 9.5, Eos % (Auto) 0.0, Baso % (Auto) 0.2, Absolute Neuts (auto) 8.1 H, Absolute Lymphs (auto) 1.59, Nucleated RBC % 0 04/09/20 05:54: Magnesium 2.0 Current Medications Acetaminophen (Acetaminophen 325 Mg Tablet) 650 mg PO Q6H PRN PRN PRN Reason: Pain Score 1-10/Temp > 100.7 F Last Admin: 04/07/20 09:44 Dose: 650 mg Documented by: Dexamethasone (Dexamethasone 4 Mg Tablet) 6 mg PO DAILY [facility] Stop: 04/15/20 10: Last Admin: 04/09/20 10:26 Dose: 6 mg Documented by: Enoxaparin Sodium (Enoxaparin 80 Mg/0.8 Ml Syringe) 80 mg SC BID [facility] Last Admin: 04/09/20 10:27 Dose: 80 mg Documented by: Guaifenesin (Guaifenesin 1,200 Mg Tablet) 1,200 mg PO BID [facility] Last Admin: 04/09/20 10:26 Dose: 1,200 mg Documented by: Sodium Chloride () 250 mls @ 15 mls/hr IV .[id number] PRN PRN Reason: Saline Flush Sodium Chloride () 250 mls @ 15 mls/hr IV .[id number] PRN PRN Reason: Additional IVPB Infusion Sodium Chloride () 250 mls @ 15 mls/hr IV .[id number] PRN PRN Reason: Saline Flush Sodium Chloride () 250 mls @ 15 mls/hr IV .[id number] PRN PRN Reason: Additional IVPB Infusion Ibuprofen (Ibuprofen 400 Mg Tablet) 400 mg PO Q4H PRN PRN PRN Reason: Pain Score 1-10/Temp > 100.7 F Melatonin (Melatonin 3 Mg Tablet) 3 mg PO QHS PRN PRN PRN Reason: INSOMNIA Multivitamins (Multivitamins,Therapeutic Tablet) 1 tablet PO DAILY [facility] Last Admin: 04/09/20 10:28 Dose: 1 tablet Documented by: Ondansetron HCl (Ondansetron 4 Mg/2 Ml Vial) 4 mg IV Q8H PRN PRN PRN Reason: NAUSEA/VOMITING Oseltamivir Phosphate (Oseltamivir Phosphate 30 Mg Capsule) 30 mg PO BID [facility] Stop: 04/10/20 10:01 Last Admin: 04/09/20 10:27 Dose: 30 mg Documented by: Potassium Chloride (Potassium Chloride 20 Meq Tablet) 40 meq PO DAILY[facility] Stop: 04/10/20 08:04 Last Admin: 04/09/20 10:28 Dose: 40 meq Documented by: Sodium Chloride (0.9% Saline Lock 10 Ml Syringe) 10 - 40 ml IV UD PRN PRN Reason: SALINE FLUSH Last Admin: 04/06/20 22:35 Dose: 10 ml Documented by: Medical Necessity - Tobacco Use Smoking Status: Never smoker Route of nutrition/ use of supplements: [] Nutritional Intake: [] IV Site: [] Siddiqui Catheter: [] - Assessment/Plan Antibiotics: [] Assessment/Plan: [] Active and Suspected Problems Pneumonia (Acute) Sounds like covid starting two weeks prior to admit, improved, then worsened over past 4-5 days. Flu B Ag (+), but doubt this is true given lack of myalgia/fatigue/n/v/d. No exposure history for flu from her family and she has been quarantining at home since first becoming ill. Ok to continue tamiflu. On dex, empiric CAP coverage with azithro/ceftriaxone, and now full dose lovenox for bilateral PEs seen on CTA. Will stop abx today. Tamiflu finishes tomorrow. Will follow
[2020-04-09] MEDS: MELATONIN 3 MG TABLET PO (20:37)
[2020-04-10 03:31] VITALS: BP 124/78; PULSE 75; RESP 20; TEMP 36.6; O2SAT 95
[2020-04-10 08:30] VITALS: BP 136/75; PULSE 79; RESP 20; TEMP 36.4; O2SAT 96
[2020-04-10 08:44] LABS: ALB/GLOB Ratio 0.7 RATIO (0.9-2.4); AST(SGOT) 66 U/L (15-37); Alanine Aminotransfer ALT/SGPT 87 U/L (13-56); Albumin, Serum 2.4 g/dL (3.2-5.0); Alkaline Phosphatase 84 U/L (45-117); Anion Gap 6 (5-15); BUN 17 mg/dL (7-18); BUN/Creat Ratio 24.9 RATIO (10-20); Calcium,Total 8.2 mg/dL (8.5-10.1); Chloride 111 mmol/L (98-107); Creatinine, Serum 0.68 mg/dL (0.55-1.02); EST Glomerular Filtration Rate 88 mL/min (>60); Est Glom Filt Rate - Afr Amer 106 mL/min (>60); Globulin 3.5 g/dL (2.2-4.2); Glucose 92 mg/dL (74-106); Potassium 3.8 mmol/L (3.5-5.1); Protein, Total 5.9 g/dL (6.4-8.2); Sodium Level 141 mmol/L (136-145)
[2020-04-10] MEDS: guaiFENesin 1,200 MG Tablet 1200 MG PO ×2 (08:58→21:32)
[2020-04-10] MEDS: Multivitamins,Therapeutic Tablet 1 TABLET PO (08:59)
[2020-04-10] MEDS: Enoxaparin 80 MG/0.8 ML Syringe SC ×2 (08:59→21:32)
[2020-04-10] MEDS: Oseltamivir Phosphate 30 MG Capsule PO (08:59)
[2020-04-10] MEDS: dexAMETHasone 4 MG Tablet 6 MG PO (08:59)
[2020-04-10 09:26] LABS: LDH 344 U/L (84-246)
--- NOTE | 2020-04-10 13:05 | PCM.PN.HOSP ---
Patient Problems: Active and Suspected Problems Pneumonia (Acute) COVID-19 (Acute) Reason for Visit: Follow-up for acute hypoxic respiratory secondary to COVID-19 pneumonia. Objective: Patient has cough and able to bring up whitish phlegm. Still complains of chest congestion. No fever or chills. Patient could not sleep last night. Denies anxiety. I talked to the patient's daughter Ms. Maggy Purcell. Patient can do incentive spirometry about 750 mL. Physical exam General: Alert, Oriented x3, Cooperative HEENT: Atraumatic, PERRLA, EOMI, Normocephalic Oral: No Gingival or Mucosal Lesions/ Ulcerations Neck: Supple, No JVD, Negative Carotid Bruits Lungs: Air entry diminished in bilateral lung bases. Mild expiratory rhonchi bilateral lung bases. Cardiovascular: Regular rate, Regular Rhythm, Normal S1, Normal S2, No murmurs Abdomen: Bowel Sounds Present, Soft, Non Tender, Non-Distended : No renal angle tenderness. No suprapubic tenderness. Extremities: No edema, Capillary Refill Less than 3 Seconds Skin: No rashes, No breakdown Musculoskeletal: No Tenderness to Palpation of Joints or Extremities Neurological: Cranial nerves II-XII grossly intact, Deep Tendon Reflexes 2+/4 and Symmetrical, Neuro grossly intact Psych/Mental Status: Normal Affect, Appropriate. Vitals/I&O's: Vital Signs Temp Pulse Resp BP Pulse Ox 97.5 F L 79 20 H 136/75 H 96 04/10/20 08:30 04/10/20 08:30 04/10/20 08:30 04/10/20 08:30 04/10/20 08:30 Oxygen Flow Rate (L/min) 6 Oxygen Delivery Method Nasal Cannula Weight: 175 lb 0.752 oz Body Mass Index (BMI) 30.9 Intake and Output for Last 24 Hours 04/08/20 04/09/20 04/10/20 23:59 23:59 23:59 Intake Total 2554.17 / 2554.17 2214.17 / 2214.17 240 / 240 Output Total Balance 2553.17 / 2553.17 2214.17 / 2214.17 240 / 240 Microbiology Past 72 Hours 04/07/20 12:47 Sputum, Expectorated/Coughed Gram Stain - Final 04/07/20 12:47 Sputum, Expectorated/Coughed Respiratory Culture - Final Presumptive C albicans 04/05/20 14:05 Blood Culture (Wb) - Anticubital Right Blood Culture - Preliminary No growth in 48 hours. 04/05/20 14:00 Blood Culture (Wb) - Anticubital Left Blood Culture - Preliminary No growth in 48 hours. Laboratory Results 04/10/20 06:35: Sodium 141, Potassium 3.8, Chloride 111 H, Carbon Dioxide 24.0, Anion Gap 6, BUN 17, Creatinine 0.68, Estim Creat Clear Calc 36.50, Est GFR (MDRD) Af Amer 106, Est GFR (MDRD) Non-Af 88, BUN/Creatinine Ratio 24.9 H, Glucose 92, Calcium 8.2 L, Total Bilirubin 0.40, AST 66 H, ALT 87 H, Alkaline Phosphatase 84, Total Protein 5.9 L, Albumin 2.4 L, Globulin 3.5, Albumin/Globulin Ratio 0.7 L 04/10/20 06:35: Lactate Dehydrogenase 344 H, C-React Prot Ext Range 24.50 H Current Medications Acetaminophen (Acetaminophen 325 Mg Tablet) 650 mg PO Q6H PRN PRN PRN Reason: Pain Score 1-10/Temp > 100.7 F Last Admin: 04/07/20 09:44 Dose: 650 mg Documented by: Dexamethasone (Dexamethasone 4 Mg Tablet) 6 mg PO DAILY [facility] Stop: 04/15/20 10:01 Last Admin: 04/10/20 08:59 Dose: 6 mg Documented by: Enoxaparin Sodium (Enoxaparin 80 Mg/0.8 Ml Syringe) 80 mg SC BID [facility] Last Admin: 04/10/20 08:59 Dose: 80 mg Documented by: Guaifenesin (Guaifenesin 1,200 Mg Tablet) 1,200 mg PO BID [facility] Last Admin: 04/10/20 08:58 Dose: 1,200 mg Documented by: Sodium Chloride () 250 mls @ 15 mls/hr IV .[id number] PRN PRN Reason: Saline Flush Sodium Chloride () 250 mls @ 15 mls/hr IV .[id number] PRN PRN Reason: Additional IVPB Infusion Sodium Chloride () 250 mls @ 15 mls/hr IV .[id number] PRN PRN Reason: Saline Flush Sodium Chloride () 250 mls @ 15 mls/hr IV .[id number] PRN PRN Reason: Additional IVPB Infusion Ibuprofen (Ibuprofen 400 Mg Tablet) 400 mg PO Q4H PRN PRN PRN Reason: Pain Score 1-10/Temp > 100.7 F Melatonin (Melatonin 3 Mg Tablet) 10 mg PO QHS [facility] Multivitamins (Multivitamins,Therapeutic Tablet) 1 tablet PO DAILY [facility] Last Admin: 04/10/20 08:59 Dose: 1 tablet Documented by: Ondansetron HCl (Ondansetron 4 Mg/2 Ml Vial) 4 mg IV Q8H PRN PRN PRN Reason: NAUSEA/VOMITING Sodium Chloride (0.9% Saline Lock 10 Ml Syringe) 10 - 40 ml IV UD PRN PRN Reason: SALINE FLUSH Last Admin: 04/06/20 22:35 Dose: 10 ml Documented by: Medical Necessity - Tobacco Use Smoking Status: Never smoker Assessment/Plan All Active Problems Pneumonia (Acute) COVID-19 (Acute) 1. Acute hypoxic respiratory failure secondary to acute COVID-19 pneumonia/influenza antigen B with possible bacterial superinfection and bilateral lobar pulmonary embolism: Patient is being admitted on Covid cohort floor. Seen by ID and discussed with him. CTPA is ordered to rule out PE. Currently on ceftriaxone and azithromycin. On Decadron and Tamiflu. Mucinex and PEP. 04/08: CTPA chest reviewed on 04/07. Multiple bilateral lobar pulmonary emboli in the right and left pulmonary arteries on both upper and lower lobes. Bilateral pneumonic consolidation/infiltrates bilaterally worse on the lower lobes. Patient had 4 days of azithromycin therefore discontinued. Continue ceftriaxone and Tamiflu and Decadron. Clinical update was given to the patient daughter 04/09: WBC count 11,000 slightly improved. H&H is stable. No fever since admission. Heart rate and blood pressure controlled. Continue above treatment. Clinical update was given to the patient's daughter Ms. Maggy Purcell, [phone] 04/10: Patient is still on 6 L of oxygen. Serum chloride is 111. IV fluid discontinued. Melatonin increased to 10 mg for sleep. Clinical update was given to patient's daughter Mrs. Maye Purcell 2. Acute COVID-19 pneumonia with hypoxia: As mentioned. Patient does not have typical influenza symptoms. 3. Acute community-acquired pneumonia, multilobular, likely secondary to suspected gram-positive organisms Chest x-ray showed airspace opacity in the lingula and right lower lobe 4. Acute influenza, started on Tamiflu 5. Mild hypokalemia: Potassium is being replaced. Magnesium 2.0. DVT PPx- Lovenox SC BID . Microbiology Past 72 Hours 04/07/20 12:47 Sputum, Expectorated/Coughed Gram Stain - Final 04/07/20 12:47 Sputum, Expectorated/Coughed Respiratory Culture - Final Presumptive C albicans Laboratory Results 04/10/20 06:35: Sodium 141, Potassium 3.8, Chloride 111 H, Carbon Dioxide 24.0, Anion Gap 6, BUN 17, Creatinine 0.68, Estim Creat Clear Calc 36.50, Est GFR (MDRD) Af Amer 106, Est GFR (MDRD) Non-Af 88, BUN/Creatinine Ratio 24.9 H, Glucose 92, Calcium 8.2 L, Total Bilirubin 0.40, AST 66 H, ALT 87 H, Alkaline Phosphatase 84, Total Protein 5.9 L, Albumin 2.4 L, Globulin 3.5, Albumin/Globulin Ratio 0.7 L 04/10/20 06:35: Lactate Dehydrogenase 344 H, C-React Prot Ext Range 24.50 H Clinical Impression(s) from Imaging Studies Chest X-Ray 04/05/20 14:15 IMPRESSION: Airspace opacity in the lingula and right lower lobe which is consistent with multilobar pneumonia. Chest CTA 04/07/20 13:17 IMPRESSION: Multiple bilateral pulmonary emboli in branches of the right and left pulmonary arteries involving both upper and lower lobes. Bilateral pulmonary infiltrates worse in the lower lobes although there is evidence of the patchy infiltrates in both upper lobes worse in the left upper lobe. 2.8 cm x 2.6 cm soft tissue density in the right adrenal gland. Moderate sized hiatal hernia. Electronically Signed: Ton Cullen, at 15:16 EST , Service support , Inpatient E&M: [id number] Subs Hosp L2
--- NOTE | 2020-04-10 13:33 | PN_ITS ---
Patient Problems: Active and Suspected Problems Pneumonia (Acute) COVID-19 (Acute) Subjective: The patient was seen and examined at the bedside this morning. Events from the last 24 hours have been reviewed. The patient is currently afebrile, hemodynamically stable and maintaining appropriate oxygen saturations on 6 L/min via nasal cannula. The patient remains on antimicrobials, Decadron, Tamiflu and therapeutic Lovenox. Objective: The patient's most recent lab work, culture data and imaging studies have all been personally reviewed. Coronavirus PCR was positive on April 05. Respiratory viral panel was positive for influenza B. - Physical Exam Vitals/I&O's: Vital Signs Temp Pulse Resp BP Pulse Ox 97.5 F L 79 20 H 136/75 H 96 04/10/20 08:30 04/10/20 08:30 04/10/20 08:30 04/10/20 08:30 04/10/20 08:30 Oxygen Flow Rate (L/min) 6 Oxygen Delivery Method Nasal Cannula Weight: 175 lb 0.752 oz Body Mass Index (BMI) 30.9 Intake and Output for Last 24 Hours 04/08/20 04/09/20 04/10/20 23:59 23:59 23:59 Intake Total 2554.17 / 2554.17 2214.17 / 2214.17 240 / 240 Output Total Balance 2553.17 / 2553.17 2214.17 / 2214.17 240 / 240 General: Alert, No apparent distress HEENT: Atraumatic, PERRLA, Normocephalic Oral: No Gingival or Mucosal Lesions/ Ulcerations Neck: Supple, No Nodes, Trachea Midline Lungs: Diminished Cardiovascular: Regular rate, Regular Rhythm Abdomen: Bowel Sounds Present, Soft, Non Tender Extremities: No clubbing, No cyanosis, No edema Skin: No breakdown Musculoskeletal: No Muscle Wasting Lymphatic: No Cervical, Supraclavicular, or Inguinal Adenopathy Neurological: Cranial nerves II-XII grossly intact, Neuro grossly intact Psych/Mental Status: Alert and oriented to time, place, person, mood and affect Labs (Last 48 Hours) 04/09/20 04/09/20 04/10/20 05:54 05:54 06:35 WBC 11.0 RBC 3.76 L Hgb 10.8 L Hct 33.6 L MCV 89.4 MCH 28.7 MCHC 32.1 D RDW Std Deviation 43.7 RDW Coeff of Gabriel 13.2 Plt Count 310 MPV 8.8 Immature Gran % (Auto) 2.000 H Neut % (Auto) 73.9 H Lymph % (Auto) 14.4 L Beaver % (Auto) 9.5 Eos % (Auto) 0.0 Baso % (Auto) 0.2 Absolute Neuts (auto) 8.1 H Absolute Lymphs (auto) 1.59 Nucleated RBC % 0 Sodium 141 Potassium 3.8 Chloride 111 H Carbon Dioxide 24.0 Anion Gap 6 BUN 17 Creatinine 0.68 Estim Creat Clear Calc 36.50 Est GFR (MDRD) Af Amer 106 Est GFR (MDRD) Non-Af 88 BUN/Creatinine Ratio 24.9 H Glucose 92 Calcium 8.2 L Magnesium 2.0 Total Bilirubin 0.40 AST 66 H ALT 87 H Alkaline Phosphatase 84 Lactate Dehydrogenase C-React Prot Ext Range Total Protein 5.9 L Albumin 2.4 L Globulin 3.5 Albumin/Globulin Ratio 0.7 L 04/10/20 06:35 WBC RBC Hgb Hct MCV MCH MCHC RDW Std Deviation RDW Coeff of Gabriel Plt Count MPV Immature Gran % (Auto) Neut % (Auto) Lymph % (Auto) Beaver % (Auto) Eos % (Auto) Baso % (Auto) Absolute Neuts (auto) Absolute Lymphs (auto) Nucleated RBC % Sodium Potassium Chloride Carbon Dioxide Anion Gap BUN Creatinine Estim Creat Clear Calc Est GFR (MDRD) Af Amer Est GFR (MDRD) Non-Af BUN/Creatinine Ratio Glucose Calcium Magnesium Total Bilirubin AST ALT Alkaline Phosphatase Lactate Dehydrogenase 344 H C-React Prot Ext Range 24.50 H Total Protein Albumin Globulin Albumin/Globulin Ratio Microbiology 04/07/20 12:47 Sputum, Expectorated/Coughed Gram Stain - Final 04/07/20 12:47 Sputum, Expectorated/Coughed Respiratory Culture - Final Presumptive C albicans Clinical Impression(s) from Imaging Studies Chest X-Ray 04/05/20 14:15 IMPRESSION: Airspace opacity in the lingula and right lower lobe which is consistent with multilobar pneumonia. Electronically Signed: Leeroy May, at 14:37 EST Tel , Service support , Chest CTA 04/07/20 13:17 IMPRESSION: Multiple bilateral pulmonary emboli in branches of the right and left pulmonary arteries involving both upper and lower lobes. Bilateral pulmonary infiltrates worse in the lower lobes although there is evidence of the patchy infiltrates in both upper lobes worse in the left upper lobe. 2.8 cm x 2.6 cm soft tissue density in the right adrenal gland. Moderate sized hiatal hernia. Electronically Signed: Ton Alyse, at 15:16 EST , Service support , Current Medications Acetaminophen (Acetaminophen 325 Mg Tablet) 650 mg PO Q6H PRN PRN PRN Reason: Pain Score 1-10/Temp > 100.7 F Last Admin: 04/07/20 09:44 Dose: 650 mg Documented by: Dexamethasone (Dexamethasone 4 Mg Tablet) 6 mg PO DAILY [facility] Stop: 04/15/20 10:01 Last Admin: 04/10/20 08:59 Dose: 6 mg Documented by: Enoxaparin Sodium (Enoxaparin 80 Mg/0.8 Ml Syringe) 80 mg SC BID [facility] Last Admin: 04/10/20 08:59 Dose: 80 mg Documented by: Guaifenesin (Guaifenesin 1,200 Mg Tablet) 1,200 mg PO BID [facility] Last Admin: 04/10/20 08:58 Dose: 1,200 mg Documented by: Sodium Chloride () 250 mls @ 15 mls/hr IV .[id number] PRN PRN Reason: Saline Flush Sodium Chloride () 250 mls @ 15 mls/hr IV .[id number] PRN PRN Reason: Additional IVPB Infusion Sodium Chloride () 250 mls @ 15 mls/hr IV .[id number] PRN PRN Reason: Saline Flush Sodium Chloride () 250 mls @ 15 mls/hr IV .[id number] PRN PRN Reason: Additional IVPB Infusion Ibuprofen (Ibuprofen 400 Mg Tablet) 400 mg PO Q4H PRN PRN PRN Reason: Pain Score 1-10/Temp > 100.7 F Melatonin (Melatonin 10 Mg Tablet) 10 mg PO QHS [facility] Multivitamins (Multivitamins,Therapeutic Tablet) 1 tablet PO DAILY [facility] Last Admin: 04/10/20 08:59 Dose: 1 tablet Documented by: Ondansetron HCl (Ondansetron 4 Mg/2 Ml Vial) 4 mg IV Q8H PRN PRN PRN Reason: NAUSEA/VOMITING Sodium Chloride (0.9% Saline Lock 10 Ml Syringe) 10 - 40 ml IV UD PRN PRN Reason: SALINE FLUSH Last Admin: 04/06/20 22:35 Dose: 10 ml Documented by: Medical Necessity - Tobacco Use Smoking Status: Never smoker Assessment/Plan All Active Problems Pneumonia (Acute) COVID-19 (Acute) RECOMMENDATIONS: 1. Continue Decadron 6 mg daily x10 days. 2. Continue Lovenox as ordered. 3. Wean supplemental oxygen to maintain saturations at or above 90%. 4. Encourage incentive spirometer use and mobilize patient as tolerated. IMPRESSIONS: 1. Acute hypoxemic respiratory failure secondary to combined COVID-19/influenza and/or community-acquired pneumonia and pulmonary emboli The patient essentially presented to the hospital with 2 weeks of Covid-like symptoms. She was also found to be positive for influenza B with radiographic findings concerning for multilobar pneumonia. She is currently maintaining appropriate saturations on supplemental O2 via nasal cannula. Recommend continu ing current supportive measures including Decadron 6 mg daily x10 days. In addition to the aforementioned, a CTA chest was obtained and did reveal bilateral pulmonary emboli, for which the patient is therapeutically anticoagulated on Lovenox. Agree with continuing Tamiflu for now. Wean supplemental oxygen to maintain saturations at or above 90%. This note was generated with [employer] dictation software. It may contain incorrect words, spelling, and punctuation that were not noted in checking the note before signing. Inpatient E&M: [id number] Subs Hosp L2
[2020-04-10] MEDS: 0.9% Saline Lock 10 ML Syringe IV (13:51)
[2020-04-10] MEDS: Furosemide 40 MG/4 ML Vial IV (13:52)
[2020-04-10 14:30] VITALS: BP 131/73; PULSE 98; RESP 20; TEMP 36.8; O2SAT 94
[2020-04-10 14:33] VITALS: O2SAT 90
[2020-04-10 20:30] VITALS: BP 145/83; PULSE 76; RESP 20; TEMP 36.4; O2SAT 95
[2020-04-10] MEDS: MELATONIN 10 MG TABLET PO (21:51)
[2020-04-11 02:30] VITALS: BP 121/70; PULSE 70; RESP 20; TEMP 36.4; O2SAT 98
--- NOTE | 2020-04-11 08:07 | PN_ITS ---
Patient Problems: Active and Suspected Problems Pneumonia (Acute) COVID-19 (Acute) Reason for Visit: Follow-up for acute hypoxic respiratory failure secondary to COVID-19 pneumonia Objective: No fever. Patient on 5 L of oxygen. Patient able to bring up phlegm, whitish in color. Patient slept good last night. Shortness of breath is improved about 50%. Physical exam General: Alert, Oriented x3, Cooperative HEENT: Atraumatic, PERRLA, EOMI, Normocephalic Oral: No Gingival or Mucosal Lesions/ Ulcerations Neck: Supple, No JVD, Negative Carotid Bruits Lungs: Air entry diminished in bilateral lungs. No crepitation/rhonchi. No tachypnea Cardiovascular: Regular rate, Regular Rhythm, Normal S1, Normal S2, No murmurs Abdomen: Bowel Sounds Present, Soft, Non Tender, Non-Distended : No renal angle tenderness. No suprapubic tenderness. Extremities: No edema, Capillary Refill Less than 3 Seconds Skin: No rashes, No breakdown Musculoskeletal: No Tenderness to Palpation of Joints or Extremities Neurological: Cranial nerves II-XII grossly intact, Deep Tendon Reflexes 2+/4 and Symmetrical, Neuro grossly intact Psych/Mental Status: Normal Affect, Appropriate. Vitals/I&O's: Vital Signs Temp Pulse Resp BP Pulse Ox 97.5 F L 70 20 H 121/70 H 98 04/11/20 02:30 04/11/20 02:30 04/11/20 02:30 04/11/20 02:30 04/11/20 02:30 Oxygen Flow Rate (L/min) 6 Oxygen Delivery Method Nasal Cannula Weight: 175 lb 0.752 oz Body Mass Index (BMI) 30.9 Intake and Output for Last 24 Hours 04/09/20 04/10/20 04/11/20 23:59 23:59 23:59 Intake Total 2214.17 / 2214.17 480 / 680 200 / 200 Balance 2214.17 / 2214.17 480 / 680 200 / 200 Microbiology Past 72 Hours 04/05/20 14:00 Blood Culture (Wb) - Anticubital Left Blood Culture - Final No growth in 5 days. 04/05/20 14:05 Blood Culture (Wb) - Anticubital Right Blood Culture - Final No growth in 5 days. 04/07/20 12:47 Sputum, Expectorated/Coughed Gram Stain - Final 04/07/20 12:47 Sputum, Expectorated/Coughed Respiratory Culture - Final Presumptive C albicans Laboratory Results 04/10/20 06:35: Sodium 141, Potassium 3.8, Chloride 111 H, Carbon Dioxide 24.0, Anion Gap 6, BUN 17, Creatinine 0.68, Estim Creat Clear Calc 36.50, Est GFR (MDRD) Af Amer 106, Est GFR (MDRD) Non-Af 88, BUN/Creatinine Ratio 24.9 H, Glucose 92, Calcium 8.2 L, Total Bilirubin 0.40, AST 66 H, ALT 87 H, Alkaline Phosphatase 84, Total Protein 5.9 L, Albumin 2.4 L, Globulin 3.5, Albumin/Globulin Ratio 0.7 L 04/10/20 06:35: Lactate Dehydrogenase 344 H, C-React Prot Ext Range 24.50 H Current Medications Acetaminophen (Acetaminophen 325 Mg Tablet) 650 mg PO Q6H PRN PRN PRN Reason: Pain Score 1-10/Temp > 100.7 F Last Admin: 04/07/20 09:44 Dose: 650 mg Documented by: Dexamethasone (Dexamethasone 4 Mg Tablet) 6 mg PO DAILY [facility] Stop: 04/15/20 10:01 Last Admin: 04/10/20 08:59 Dose: 6 mg Documented by: Enoxaparin Sodium (Enoxaparin 80 Mg/0.8 Ml Syringe) 80 mg SC BID [facility] Last Admin: 04/10/20 21:32 Dose: 80 mg Documented by: Guaifenesin (Guaifenesin 1,200 Mg Tablet) 1,200 mg PO BID [facility] Last Admin: 04/10/20 21:32 Dose: 1,200 mg Documented by: Sodium Chloride () 250 mls @ 15 mls/hr IV .[id number] PRN PRN Reason: Saline Flush Sodium Chloride () 250 mls @ 15 mls/hr IV .[id number] PRN PRN Reason: Additional IVPB Infusion Sodium Chloride () 250 mls @ 15 mls/hr IV .[id number] PRN PRN Reason: Saline Flush Sodium Chloride () 250 mls @ 15 mls/hr IV .[id number] PRN PRN Reason: Additional IVPB Infusion Ibuprofen (Ibuprofen 400 Mg Tablet) 400 mg PO Q4H PRN PRN PRN Reason: Pain Score 1-10/Temp > 100.7 F Melatonin (Melatonin 10 Mg Tablet) 10 mg PO QHS [facility] Last Admin: 04/10/20 21:51 Dose: 10 mg Documented by: Multivitamins (Multivitamins,Therapeutic Tablet) 1 tablet PO DAILY [facility] Last Admin: 04/10/20 08:59 Dose: 1 tablet Documented by: Ondansetron HCl (Ondansetron 4 Mg/2 Ml Vial) 4 mg IV Q8H PRN PRN PRN Reason: NAUSEA/VOMITING Sodium Chloride (0.9% Saline Lock 10 Ml Syringe) 10 - 40 ml IV UD PRN PRN Reason: SALINE FLUSH Last Admin: 04/10/20 13:51 Dose: 10 ml Documented by: Medical Necessity - Tobacco Use Smoking Status: Never smoker Assessment/Plan All Active Problems Pneumonia (Acute) COVID-19 (Acute) 1. Acute hypoxic respiratory failure secondary to acute COVID-19 pneumonia/influenza antigen B with possible bacterial superinfection and bilat eral lobar pulmonary embolism: Patient is being admitted on Covid cohort floor. Seen by ID and discussed with him. CTPA is ordered to rule out PE. Currently on ceftriaxone and azithromycin. On Decadron and Tamiflu. Mucinex and PEP. 04/08: CTPA chest reviewed on 04/07. Multiple bilateral lobar pulmonary emboli in the right and left pulmonary arteries on both upper and lower lobes. Bilateral pneumonic consolidation/infiltrates bilaterally worse on the lower lobes. Patient had 4 days of azithromycin therefore discontinued. Continue ceftriaxone and Tamiflu and Decadron. Clinical update was given to the patient daughter 04/09: WBC count 11,000 slightly improved. H&H is stable. No fever since admission. Heart rate and blood pressure controlled. Continue above treatment. Clinical update was given to the patient's daughter Ms. Maggy Purcell, [phone]. 04/10: Patient is still on 6 L of oxygen. Serum chloride is 111. IV fluid discontinued. Melatonin increased to 10 mg for sleep. Clinical update was given to patient's daughter Mrs. Maye Purcell 04/11: Patient oxygen level is better. No shortness of breath. Continue with your treatment. Patient slept good on melatonin 10 mg. Clinical update was given to the patient's daughter. ID note states Covid started about 2 weeks prior to admit. Patient completed Tamiflu on 04/10 and antibiotics were discontinued on 04/09 by ID. Patient not a candidate for convalescent plasma or remdesivir because of duration of symptoms more than 2 weeks. Lasix 40 mg IV given. 2. Acute COVID-19 pneumonia with hypoxia: As mentioned. Patient does not have typical influenza symptoms. 3. Acute community-acquired pneumonia, multilobular, likely secondary to suspected gram-positive organisms Chest x-ray showed airspace opacity in the lingula and right lower lobe 4. Acute influenza, started on Tamiflu 5. Mild hypokalemia: Potassium is being replaced. Magnesium 2.0. DVT PPx- Lovenox SC BID . Microbiology Past 72 Hours 04/05/20 14:00 Blood Culture (Wb) - Anticubital Left Blood Culture - Final No growth in 5 days. 04/05/20 14:05 Blood Culture (Wb) - Anticubital Right Blood Culture - Final No growth in 5 days. 04/07/20 12:47 Sputum, Expectorated/Coughed Gram Stain - Final 04/07/20 12:47 Sputum, Expectorated/Coughed Respiratory Culture - Final Presumptive C albicans Clinical Impression(s) from Imaging Studies Chest X-Ray 04/05/20 14:15 IMPRESSION: Airspace opacity in the lingula and right lower lobe which is consistent with multilobar pneumonia. Chest CTA 04/07/20 13:17 IMPRESSION: Multiple bilateral pulmonary emboli in branches of the right and left pulmonary arteries involving both upper and lower lobes. Bilateral pulmonary infiltrates worse in the lower lobes although there is evidence of the patchy infiltrates in both upper lobes worse in the left upper lobe. 2.8 cm x 2.6 cm soft tissue density in the right adrenal gland. Moderate sized hiatal hernia. Electronically Signed: Ton Cullen, at 15:16 EST , Service support , Active Medications Acetaminophen (Acetaminophen 325 Mg Tablet) 650 mg PO Q6H PRN PRN PRN Reason: Pain Score 1-10/Temp > 100.7 F Last Admin: 04/07/20 09:44 Dose: 650 mg Documented by: Dexamethasone (Dexamethasone 4 Mg Tablet) 6 mg PO DAILY [facility] Stop: 04/15/20 10:01 Last Admin: 04/11/20 10:12 Dose: 6 mg Documented by: Enoxaparin Sodium (Enoxaparin 80 Mg/0.8 Ml Syringe) 80 mg SC BID [facility] Last Admin: 04/11/20 10:12 Dose: 80 mg Documented by: Guaifenesin (Guaifenesin 1,200 Mg Tablet) 1,200 mg PO BID [facility] Last Admin: 04/11/20 10:12 Dose: 1,200 mg Documented by: Sodium Chloride () 250 mls @ 15 mls/hr IV .[id number] PRN PRN Reason: Saline Flush Sodium Chloride () 250 mls @ 15 mls/hr IV .[id number] PRN PRN Reason: Additional IVPB Infusion Sodium Chloride () 250 mls @ 15 mls/hr IV .[id number] PRN PRN Reason: Saline Flush Sodium Chloride () 250 mls @ 15 mls/hr IV .[id number] PRN PRN Reason: Additional IVPB Infusion Ibuprofen (Ibuprofen 400 Mg Tablet) 400 mg PO Q4H PRN PRN PRN Reason: Pain Score 1-10/Temp > 100.7 F Melatonin (Melatonin 10 Mg Tablet) 10 mg PO QHS [facility] Last Admin: 04/10/20 21:51 Dose: 10 mg Documented by: Multivitamins (Multivitamins,Therapeutic Tablet) 1 tablet PO DAILY [facility] Last Admin: 04/11/20 10:12 Dose: 1 tablet Documented by: Ondansetron HCl (Ondansetron 4 Mg/2 Ml Vial) 4 mg IV Q8H PRN PRN PRN Reason: NAUSEA/VOMITING Sodium Chloride (0.9% Saline Lock 10 Ml Syringe) 10 - 40 ml IV UD PRN PRN Reason: SALINE FLUSH Last Admin: 04/11/20 12:47 Dose: 10 ml Documented by: Inpatient E&M: [id number] [facility] Hosp L2
[2020-04-11 09:15] VITALS: BP 104/60; PULSE 67; RESP 18; TEMP 36.7; O2SAT 97
[2020-04-11] MEDS: Enoxaparin 80 MG/0.8 ML Syringe SC ×2 (10:12→22:59)
[2020-04-11] MEDS: guaiFENesin 1,200 MG Tablet 1200 MG PO ×2 (10:12→22:59)
[2020-04-11] MEDS: Multivitamins,Therapeutic Tablet 1 TABLET PO (10:12)
[2020-04-11] MEDS: dexAMETHasone 4 MG Tablet 6 MG PO (10:12)
--- NOTE | 2020-04-11 11:46 | PN_ITS ---
Patient Problems: Active and Suspected Problems Pneumonia (Acute) COVID-19 (Acute) Subjective: The patient was seen and examined at the bedside this morning. Events from the last 24 hours have been reviewed. The patient is currently afebrile, hemodynamically stable and maintaining appropriate oxygen saturations on 5 L/min via nasal cannula. The patient remains on Decadron and therapeutic Lovenox. The patient's cough persists. Objective: The patient's most recent lab work, culture data and imaging studies have all been personally reviewed. Coronavirus PCR was positive on April 05. Respiratory viral panel was positive for influenza B. - Physical Exam Vitals/I&O's: Vital Signs Temp Pulse Resp BP Pulse Ox 98.1 F 67 18 104/60 97 04/11/20 09:15 04/11/20 09:15 04/11/20 09:15 04/11/20 09:15 04/11/20 09:15 Oxygen Flow Rate (L/min) 5 Oxygen Delivery Method Nasal Cannula Weight: 175 lb 0.752 oz Body Mass Index (BMI) 30.9 Intake and Output for Last 24 Hours 04/09/20 04/10/20 04/11/20 23:59 23:59 23:59 Intake Total 2214.17 / 2214.17 480 / 680 440 / 440 Balance 2214.17 / 2214.17 480 / 680 440 / 440 General: Alert, Cooperative, No apparent distress HEENT: Atraumatic, PERRLA, Normocephalic Oral: No Gingival or Mucosal Lesions/ Ulcerations Neck: Supple, No Nodes, Trachea Midline Lungs: No rhonchi, No wheeze, No rales, Diminished Cardiovascular: Regular rate, Regular Rhythm, No murmurs Abdomen: Bowel Sounds Present, Soft, Non Tender Extremities: No clubbing, No cyanosis, No edema Skin: No breakdown Musculoskeletal: No Tenderness to Palpation of Joints or Extremities Lymphatic: No Cervical, Supraclavicular, or Inguinal Adenopathy Neurological: Neuro grossly intact Psych/Mental Status: Normal Affect, Appropriate Microbiology Past 72 Hours 04/05/20 14:00 Blood Culture (Wb) - Anticubital Left Blood Culture - Final No growth in 5 days. 04/05/20 14:05 Blood Culture (Wb) - Anticubital Right Blood Culture - Final No growth in 5 days. 04/07/20 12:47 Sputum, Expectorated/Coughed Gram Stain - Final 04/07/20 12:47 Sputum, Expectorated/Coughed Respiratory Culture - Final Presumptive C albicans Current Medications Acetaminophen (Acetaminophen 325 Mg Tablet) 650 mg PO Q6H PRN PRN PRN Reason: Pain Score 1-10/Temp > 100.7 F Last Admin: 04/07/20 09:44 Dose: 650 mg Documented by: Dexamethasone (Dexamethasone 4 Mg Tablet) 6 mg PO DAILY [facility] Stop: 04/15/20 10:01 Last Admin: 04/11/20 10:12 Dose: 6 mg Documented by: Enoxaparin Sodium (Enoxaparin 80 Mg/0.8 Ml Syringe) 80 mg SC BID [facility] Last Admin: 04/11/20 10:12 Dose: 80 mg Documented by: Guaifenesin (Guaifenesin 1,200 Mg Tablet) 1,200 mg PO BID [facility] Last Admin: 04/11/20 10:12 Dose: 1,200 mg Documented by: Sodium Chloride () 250 mls @ 15 mls/hr IV .[id number] PRN PRN Reason: Saline Flush Sodium Chloride () 250 mls @ 15 mls/hr IV .[id number] PRN PRN Reason: Additional IVPB Infusion Sodium Chloride () 250 mls @ 15 mls/hr IV .[id number] PRN PRN Reason: Saline Flush Sodium Chloride () 250 mls @ 15 mls/hr IV .[id number] PRN PRN Reason: Additional IVPB Infusion Ibuprofen (Ibuprofen 400 Mg Tablet) 400 mg PO Q4H PRN PRN PRN Reason: Pain Score 1-10/Temp > 100.7 F Melatonin (Melatonin 10 Mg Tablet) 10 mg PO QHS [facility] Last Admin: 04/10/20 21:51 Dose: 10 mg Documented by: Multivitamins (Multivitamins,Therapeutic Tablet) 1 tablet PO DAILY [facility] Last Admin: 04/11/20 10:12 Dose: 1 tablet Documented by: Ondansetron HCl (Ondansetron 4 Mg/2 Ml Vial) 4 mg IV Q8H PRN PRN PRN Reason: NAUSEA/VOMITING Sodium Chloride (0.9% Saline Lock 10 Ml Syringe) 10 - 40 ml IV UD PRN PRN Reason: SALINE FLUSH Last Admin: 04/10/20 13:51 Dose: 10 ml Documented by: Medical Necessity - Tobacco Use Smoking Status: Never smoker Assessment/Plan All Active Problems Pneumonia (Acute) COVID-19 (Acute) RECOMMENDATIONS: 1. Continue Decadron 6 mg daily x10 days. 2. Continue Lovenox as ordered. 3. Wean supplemental oxygen to maintain saturations at or above 90%. 4. Encourage incentive spirometer use and mobilize patient as tolerated. 5. Give IV Lasix x1 today. IMPRESSIONS: 1. Acute hypoxemic respiratory failure secondary to combined COVID-19/influenza and/or community-acquired pneumonia and pulmonary emboli The patient essentially presented to the hospital with 2 weeks of Covid-like symptoms. She was also found to be positive for influenza B with radiographic findings concerning for multilobar pneumonia. She is currently maintaining appropriate saturations on supplemental O2 via nasal cannula. Recommend continuing current supportive measures including Decadron 6 mg daily x10 days. In addition to the aforementioned, a CTA chest was obtained and did reveal bilateral pulmonary emboli, for which the patient is therapeutically anticoagulated on Lovenox. Wean supplemental oxygen to maintain saturations at or above 90%. This note was generated with [employer] dictation software. It may contain incorrect words, spelling, and punctuation that were not noted in checking the note before signing. Inpatient E&M: [id number] Subs Hosp L2
[2020-04-11 12:40] VITALS: O2SAT 94
[2020-04-11] MEDS: 0.9% Saline Lock 10 ML Syringe IV ×2 (12:47→23:05)
[2020-04-11] MEDS: Furosemide 40 MG/4 ML Vial IV (12:47)
[2020-04-11 15:51] VITALS: BP 107/54; PULSE 68; RESP 18; TEMP 36.6; O2SAT 97
--- NOTE | 2020-04-11 16:37 | PCM.PN.ID ---
Patient Problems: Active and Suspected Problems Pneumonia (Acute) COVID-19 (Acute) Subjective: Feeling much better today, breathing improved, no fever - Physical Exam Vitals/I&O's: Vital Signs Temp Pulse Resp BP Pulse Ox 98 F 68 18 107/54 L 97 04/11/20 15:51 04/11/20 15:51 04/11/20 15:51 04/11/20 15:51 04/11/20 15:51 Oxygen Flow Rate (L/min) 5 Oxygen Delivery Method Nasal Cannula Weight: 79.4 kg Body Mass Index (BMI) 30.9 Intake and Output for Last 24 Hours 04/09/20 04/10/20 04/11/20 23:59 23:59 23:59 Intake Total 2214.17 / 2214.17 480 / 680 680 / 680 Balance 2214.17 / 2214.17 480 / 680 680 / 680 General: Alert, Cooperative, No apparent distress Lungs: Clear to auscultation, Diminished Cardiovascular: Regular rate, Regular Rhythm Abdomen: Soft, Non Tender, Non-Distended Skin: No rashes Musculoskeletal: No Tenderness to Palpation of Joints or Extremities Microbiology Past 72 Hours 04/05/20 14:00 Blood Culture (Wb) - Anticubital Left Blood Culture - Final No growth in 5 days. 04/05/20 14:05 Blood Culture (Wb) - Anticubital Right Blood Culture - Final No growth in 5 days. 04/07/20 12:47 Sputum, Expectorated/Coughed Gram Stain - Final 04/07/20 12:47 Sputum, Expectorated/Coughed Respiratory Culture - Final Presumptive C albicans Current Medications Acetaminophen (Acetaminophen 325 Mg Tablet) 650 mg PO Q6H PRN PRN PRN Reason: Pain Score 1-10/Temp > 100.7 F Last Admin: 04/07/20 09:44 Dose: 650 mg Documented by: Dexamethasone (Dexamethasone 4 Mg Tablet) 6 mg PO DAILY [facility] Stop: 04/15/20 10:01 Last Admin: 04/11/20 10:12 Dose: 6 mg Documented by: Enoxaparin Sodium (Enoxaparin 80 Mg/0.8 Ml Syringe) 80 mg SC BID [facility] Last Admin: 04/11/20 10:12 Dose: 80 mg Documented by: Guaifenesin (Guaifenesin 1,200 Mg Tablet) 1,200 mg PO BID [facility] Last Admin: 04/11/20 10:12 Dose: 1,200 mg Documented by: Sodium Chloride () 250 mls @ 15 mls/hr IV .[id number] PRN PRN Reason: Saline Flush Sodium Chloride () 250 mls @ 15 mls/hr IV .[id number] PRN PRN Reason: Additional IVPB Infusion Sodium Chloride () 250 mls @ 15 mls/hr IV .[id number] PRN PRN Reason: Saline Flush Sodium Chloride () 250 mls @ 15 mls/hr IV .[id number] PRN PRN Reason: Additional IVPB Infusion Ibuprofen (Ibuprofen 400 Mg Tablet) 400 mg PO Q4H PRN PRN PRN Reason: Pain Score 1-10/Temp > 100.7 F Melatonin (Melatonin 10 Mg Tablet) 10 mg PO QHS [facility] Last Admin: 04/10/20 21:51 Dose: 10 mg Documented by: Multivitamins (Multivitamins,Therapeutic Tablet) 1 tablet PO DAILY [facility] Last Admin: 04/11/20 10:12 Dose: 1 tablet Documented by: Ondansetron HCl (Ondansetron 4 Mg/2 Ml Vial) 4 mg IV Q8H PRN PRN PRN Reason: NAUSEA/VOMITING Sodium Chloride (0.9% Saline Lock 10 Ml Syringe) 10 - 40 ml IV UD PRN PRN Reason: SALINE FLUSH Last Admin: 04/11/20 12:47 Dose: 10 ml Documented by: Medical Necessity - Tobacco Use Smoking Status: Never smoker Route of nutrition/ use of supplements: [] Nutritional Intake: [] IV Site: [] Siddiqui Catheter: [] - Assessment/Plan Antibiotics: [] Assessment/Plan: [] Active and Suspected Problems Pneumonia (Acute) Sounds like covid starting two weeks prior to admit, improved, then worsened over past 4-5 days. Flu B Ag (+), but doubt this is true given lack of myalgia/fatigue/n/v/d. No exposure history for flu from her family and she has been quarantining at home since first becoming ill. Completed tamiflu, stopped abx. On dex for 10 day course and full dose anticoagulation. Ok for discharge from ID perspective once O2 is stable. Will follow
[2020-04-11 22:45] VITALS: RESP 18; O2SAT 87
[2020-04-11 22:56] VITALS: BP 126/73; PULSE 85; RESP 18; TEMP 36.2; O2SAT 95
[2020-04-11] MEDS: MELATONIN 10 MG TABLET PO (22:59)
[2020-04-12 03:18] VITALS: BP 107/63; PULSE 71; RESP 20; TEMP 36.7; O2SAT 96
[2020-04-12 03:22] VITALS: O2SAT 95
[2020-04-12 07:49] LABS: Absolute Lymphocyte Count 1.34 X10^3/uL (0.83-4.51); Absolute Neutrophil Count 8.2 X10^3/uL (2.0-7.7); Basophil# 0.03 X10^3/uL; Basophil% 0.3 % (0-1); Eosinophil# 0.02 X10^3/uL; Eosinophils% 0.2 % (0-5); Hematocrit 29.7 % (37-47); Lymphocyte # 1.34 X10^3/ul (4.0); Lymphocyte % 12.2 % (19-41); Mean Corpuscular Hgb 34.6 pg (27.0-32.0); Mean Corpuscular Volume 93.4 fL (81-99); Mean Platelet Vol. 9.4 fl (6.2-12.0); Monocyte# 1.06 X10^3/uL; Monocyte% 9.7 % (0-10); NRBC Flagged by Analyzer 0 % (0-5); Neutrophil # 8.24 X10^3/uL (2.7-7.7); Neutrophil % 75.1 % (47-70); Platelet Count 374 K/mm3 (150-450); RBC Distribution Width CV 14.1 % (11.6-14.6); RBC Distribution Width SD 44.8 fl (35.1-43.9); Red Blood Count 3.18 M/mm3 (4.2-5.4)
[2020-04-12 08:24] VITALS: BP 120/76; PULSE 66; RESP 22; TEMP 36.7; O2SAT 92
[2020-04-12 08:25] LABS: ALB/GLOB Ratio 0.7 RATIO (0.9-2.4); AST(SGOT) 33 U/L (15-37); Alanine Aminotransfer ALT/SGPT 82 U/L (13-56); Albumin, Serum 2.5 g/dL (3.2-5.0); Alkaline Phosphatase 76 U/L (45-117); Anion Gap 7 (5-15); BUN 24 mg/dL (7-18); BUN/Creat Ratio 31.2 RATIO (10-20); Calcium,Total 8.3 mg/dL (8.5-10.1); Chloride 106 mmol/L (98-107); Creatinine, Serum 0.77 mg/dL (0.55-1.02); EST Glomerular Filtration Rate 76 mL/min (>60); Est Glom Filt Rate - Afr Amer 92 mL/min (>60); Globulin 3.4 g/dL (2.2-4.2); Glucose 98 mg/dL (74-106); Potassium 3.8 mmol/L (3.5-5.1); Protein, Total 5.9 g/dL (6.4-8.2); Sodium Level 138 mmol/L (136-145)
[2020-04-12] MEDS: Enoxaparin 80 MG/0.8 ML Syringe SC ×2 (08:33→21:56)
[2020-04-12] MEDS: guaiFENesin 1,200 MG Tablet 1200 MG PO ×2 (08:33→21:56)
[2020-04-12] MEDS: Multivitamins,Therapeutic Tablet 1 TABLET PO (08:33)
[2020-04-12] MEDS: dexAMETHasone 4 MG Tablet 6 MG PO (08:33)
[2020-04-12 08:34] VITALS: O2SAT 95
--- NOTE | 2020-04-12 08:35 | NURSING ---
O2 SAT 92% ON 5L NC, O2 DECREASED TO 4L NC - WILL MONITOR.
[2020-04-12 08:38] LABS: LDH 315 U/L (84-246)
--- NOTE | 2020-04-12 14:11 | PN_ITS ---
Patient Problems: Active and Suspected Problems Pneumonia (Acute) COVID-19 (Acute) Reason for Visit: Follow-up for acute hypoxic respiratory failure secondary to COVID-19 pneumonia Objective: No fever or chills. Patient feels improvement in shortness of breath about 50 to 60%. Respiratory 2022/min on 5 L of oxygen. Mild occasional cough with whitish sputum.. Physical exam General: Alert, Oriented x3, Cooperative HEENT: Atraumatic, PERRLA, EOMI, Normocephalic Oral: No Gingival or Mucosal Lesions/ Ulcerations Neck: Supple, No JVD, Negative Carotid Bruits Lungs: Air entry diminished in bilateral lung bases. No crepitation/rhonchi Cardiovascular: Regular rate, Regular Rhythm, Normal S1, Normal S2, No murmurs Abdomen: Bowel Sounds Present, Soft, Non Tender, Non-Distended : No renal angle tenderness. No suprapubic tenderness. Extremities: No edema, Capillary Refill Less than 3 Seconds Skin: No rashes, No breakdown Musculoskeletal: No Tenderness to Palpation of Joints or Extremities Neurological: Cranial nerves II-XII grossly intact, Deep Tendon Reflexes 2+/4 and Symmetrical, Neuro grossly intact Psych/Mental Status: Normal Affect, Appropriate. Vitals/I&O's: Vital Signs Temp Pulse Resp BP Pulse Ox 98.0 F 66 22 H 120/76 95 04/12/20 08:24 04/12/20 08:24 04/12/20 08:24 04/12/20 08:24 04/12/20 08:34 Oxygen Flow Rate (L/min) 3 Oxygen Delivery Method Nasal Cannula Weight: 175 lb 0.752 oz Body Mass Index (BMI) 30.9 Intake and Output for Last 24 Hours 04/10/20 04/11/20 04/12/20 23:59 23:59 23:59 Intake Total 480 / 680 1620 / 1620 Balance 480 / 680 1620 / 1620 Microbiology Past 72 Hours 04/05/20 14:00 Blood Culture (Wb) - Anticubital Left Blood Culture - Final No growth in 5 days. 04/05/20 14:05 Blood Culture (Wb) - Anticubital Right Blood Culture - Final No growth in 5 days. Laboratory Results 04/12/20 06:45: Sodium 138, Potassium 3.8, Chloride 106, Carbon Dioxide 25.0, Anion Gap 7, BUN 24 H, Creatinine 0.77, Estim Creat Clear Calc 36.50, Est GFR (MDRD) Af Amer 92, Est GFR (MDRD) Non-Af 76, BUN/Creatinine Ratio 31.2 H, G lucose 98, Calcium 8.3 L, Total Bilirubin 0.40, AST 33, ALT 82 H, Alkaline Phosphatase 76, Total Protein 5.9 L, Albumin 2.5 L, Globulin 3.4, Albumin/Globulin Ratio 0.7 L 04/12/20 06:45: Lactate Dehydrogenase 315 H, C-React Prot Ext Range 12.50 H 04/12/20 06:45: WBC 11.0, RBC 3.18 L, Hgb 11.0 L, Hct 29.7 L, MCV 93.4, MCH 34.6 H, MCHC 37.0 H D, RDW Std Deviation 44.8 H, RDW Coeff of Gabriel 14.1, Plt Count 374, MPV 9.4, Immature Gran % (Auto) 2.500 H, Neut % (Auto) 75.1 H, Lymph % (Auto) 12.2 L, [place] % (Auto) 9.7, Eos % (Auto) 0.2, Baso % (Auto) 0.3, Absolute Neuts (auto) 8.2 H, Absolute Lymphs (auto) 1.34, Nucleated RBC % 0 Current Medications Acetaminophen (Acetaminophen 325 Mg Tablet) 650 mg PO Q6H PRN PRN PRN Reason: Pain Score 1-10/Temp > 100.7 F Last Admin: 04/07/20 09:44 Dose: 650 mg Documented by: Dexamethasone (Dexamethasone 4 Mg Tablet) 6 mg PO DAILY [facility] Stop: 04/15/20 10:01 Last Admin: 04/12/20 08:33 Dose: 6 mg Documented by: Enoxaparin Sodium (Enoxaparin 80 Mg/0.8 Ml Syringe) 80 mg SC BID [facility] Last Admin: 04/12/20 08:33 Dose: 80 mg Documented by: Guaifenesin (Guaifenesin 1,200 Mg Tablet) 1,200 mg PO BID [facility] Last Admin: 04/12/20 08:33 Dose: 1,200 mg Documented by: Sodium Chloride () 250 mls @ 15 mls/hr IV .[id number] PRN PRN Reason: Saline Flush Sodium Chloride () 250 mls @ 15 mls/hr IV .[id number] PRN PRN Reason: Additional IVPB Infusion Sodium Chloride () 250 mls @ 15 mls/hr IV .[id number] PRN PRN Reason: Saline Flush Sodium Chloride () 250 mls @ 15 mls/hr IV .[id number] PRN PRN Reason: Additional IVPB Infusion Ibuprofen (Ibuprofen 400 Mg Tablet) 400 mg PO Q4H PRN PRN PRN Reason: Pain Score 1-10/Temp > 100.7 F Melatonin (Melatonin 10 Mg Tablet) 10 mg PO QHS [facility] Last Admin: 04/11/20 22:59 Dose: 10 mg Documented by: Multivitamins (Multivitamins,Therapeutic Tablet) 1 tablet PO DAILY [facility] Last Admin: 04/12/20 08:33 Dose: 1 tablet Documented by: Ondansetron HCl (Ondansetron 4 Mg/2 Ml Vial) 4 mg IV Q8H PRN PRN PRN Reason: NAUSEA/VOMITING Sodium Chloride (0.9% Saline Lock 10 Ml Syringe) 10 - 40 ml IV UD PRN PRN Reason: SALINE FLUSH Last Admin: 04/11/20 23:05 Dose: 10 ml Documented by: Medical Necessity - Tobacco Use Smoking Status: Never smoker Assessment/Plan All Active Problems Pneumonia (Acute) COVID-19 (Acute) 1. Acute hypoxic respiratory failure secondary to acute COVID-19 pneumonia/influenza antigen B with possible bacterial superinfection and bilateral lobar pulmonary embolism: Patient is being admitted on Covid cohort floor. Seen by ID and discussed with him. CTPA is ordered to rule out PE. Currently on ceftriaxone and azithromycin. On Decadron and Tamiflu. Mucinex and PEP. 04/08: CTPA chest reviewed on 04/07. Multiple bilateral lobar pulmonary emboli in the right and left pulmonary arteries on both upper and lower lobes. Bilateral pneumonic consolidation/infiltrates bilaterally worse on the lower lobes. Patient had 4 days of azithromycin therefore discontinued. Continue ceftriaxone and Tamiflu and Decadron. Clinical update was given to the patient daughter 04/09: WBC count 11,000 slightly improved. H&H is stable. No fever since admission. Heart rate and blood pressure controlled. Continue above treatment. Clinical update was given to the patient's daughter Ms. Maggy Purcell, [phone]. 04/10: Patient is still on 6 L of oxygen. Serum chloride is 111. IV fluid discontinued. Melatonin increased to 10 mg for sleep. Clinical update was given to patient's daughter Mrs. Maye Purcell 04/11: Patient oxygen level is better. No shortness of breath. Continue with your treatment. Patient slept good on melatonin 10 mg. Clinical update was given to the patient's daughter. ID note states Covid started about 2 weeks prior to admit. Patient completed Tamiflu on 04/10 and antibiotics were discontinued on 04/09 by ID. Patient not a candidate for convalescent plasma or remdesivir because of duration of symptoms more than 2 weeks. Lasix 40 mg IV given. 04/12: Patient feels improvement about 60%. Patient wants little stronger sleep medication. I called the daughter and we agreed on hydroxyzine 25 mg nightly and discontinuation of melatonin. 2. Acute COVID-19 pneumonia with hypoxia: As mentioned. Patient does not have typical influenza symptoms. 3. Acute community-acquired pneumonia, multilobular, likely secondary to suspected gram-positive organisms Chest x-ray showed airspace opacity in the lingula and right lower lobe 4. Acute influenza, started on Tamiflu 5. Mild hypokalemia: Potassium is being replaced. Magnesium 2.0. DVT PPx- Lovenox SC BID . Microbiology Past 72 Hours 04/05/20 14:00 Blood Culture (Wb) - Anticubital Left Blood Culture - Final No growth in 5 days. 04/05/20 14:05 Blood Culture (Wb) - Anticubital Right Blood Culture - Final No growth in 5 days. Laboratory Results 04/12/20 06:45: Sodium 138, Potassium 3.8, Chloride 106, Carbon Dioxide 25.0, Anion Gap 7, BUN 24 H, Creatinine 0.77, Estim Creat Clear Calc 36.50, Est GFR (MDRD) Af Amer 92, Est GFR (MDRD) Non-Af 76, BUN/Creatinine Ratio 31.2 H, Glucose 98, Calcium 8.3 L, Total Bilirubin 0.40, AST 33, ALT 82 H, Alkaline Phosphatase 76, Total Protein 5.9 L, Albumin 2.5 L, Globulin 3.4, Albumin/Globulin Ratio 0.7 L 04/12/20 06:45: Lactate Dehydrogenase 315 H, C-React Prot Ext Range 12.50 H 04/12/20 06:45: WBC 11.0, RBC 3.18 L, Hgb 11.0 L, Hct 29.7 L, MCV 93.4, MCH 34.6 H, MCHC 37.0 H D, RDW Std Deviation 44.8 H, RDW Coeff of Gabriel 14.1, Plt Count 374, MPV 9.4, Immature Gran % (Auto) 2.500 H, Neut % (Auto) 75.1 H, Lymph % (Auto) 12.2 L, [place] % (Auto) 9.7, Eos % (Auto) 0.2, Baso % (Auto) 0.3, Absolute Neuts (auto) 8.2 H, Absolute Lymphs (auto) 1.34, Nucleated RBC % 0 Clinical Impression(s) from Imaging Studies Chest X-Ray 04/05/20 14:15 IMPRESSION: Airspace opacity in the lingula and right lower lobe which is consistent with multilobar pneumonia. Chest CTA 04/07/20 13:17 IMPRESSION: Multiple bilateral pulmonary emboli in branches of the right and left pulmonary arteries involving both upper and lower lobes. Bilateral pulmonary infiltrates worse in the lower lobes although there is evidence of the patchy infiltrates in both upper lobes worse in the left upper lobe. 2.8 cm x 2.6 cm soft tissue density in the right adrenal gland. Moderate sized hiatal hernia. Electronically Signed: Ton Cullen, at 15:16 EST , Service support , Inpatient E&M: [id number] Subs Hosp L2
[2020-04-12 14:30] VITALS: BP 98/62; PULSE 72; RESP 20; TEMP 36.6; O2SAT 97
--- NOTE | 2020-04-12 15:49 | NURSING ---
O2 DECREASED TO 3L NC
[2020-04-12 21:46] VITALS: BP 138/81; PULSE 87; RESP 22; TEMP 36.6; O2SAT 95
[2020-04-12] MEDS: hydrOXYzine PAM 25 MG Capsule PO (21:55)
[2020-04-13] VITALS (8 sets, daily range): BP systolic 101–127; BP diastolic 60–77; PULSE 64–79; RESP 18–20; TEMP 36.4–36.8; O2SAT 87–99
[2020-04-13] MEDS: dexAMETHasone 4 MG Tablet 6 MG PO (09:10)
[2020-04-13] MEDS: Enoxaparin 80 MG/0.8 ML Syringe SC ×2 (09:10→21:42)
[2020-04-13] MEDS: Multivitamins,Therapeutic Tablet 1 TABLET PO (09:11)
[2020-04-13] MEDS: guaiFENesin 1,200 MG Tablet 1200 MG PO ×2 (09:11→21:42)
--- NOTE | 2020-04-13 09:47 | PN_ITS ---
Patient Problems: Active and Suspected Problems Pneumonia (Acute) COVID-19 (Acute) Subjective: The patient was seen and examined at the bedside this morning. Events from the last 24 hours have been reviewed. The patient is currently afebrile, hemodynamically stable and maintaining appropriate oxygen saturations on 3 L/min via nasal cannula. The patient remains on Decadron and therapeutic Lovenox. Objective: The patient's most recent lab work, culture data and imaging studies have all been personally reviewed. Coronavirus PCR was positive on April 05. Respiratory viral panel was positive for influenza B. - Physical Exam Vitals/I&O's: Vital Signs Temp Pulse Resp BP Pulse Ox 97.6 F L 76 20 H 101/61 96 04/13/20 09:06 04/13/20 09:06 04/13/20 09:06 04/13/20 09:06 04/13/20 09:06 Oxygen Flow Rate (L/min) 3 Oxygen Delivery Method Nasal Cannula Weight: 175 lb 0.752 oz Body Mass Index (BMI) 30.9 Intake and Output for Last 24 Hours 04/11/20 04/12/20 04/13/20 23:59 23:59 23:59 Intake Total 1620 / 1620 660 / 660 Balance 1620 / 1620 660 / 660 General: Alert, Cooperative, No apparent distress HEENT: Atraumatic, PERRLA, Normocephalic Oral: Moist Mucosa, No Gingival or Mucosal Lesions/ Ulcerations Neck: Supple, No Nodes, Trachea Midline Lungs: No rhonchi, No wheeze, No rales, Diminished Cardiovascular: Regular rate, Regular Rhythm, No murmurs Abdomen: Bowel Sounds Present, Soft, Non Tender Extremities: No clubbing, No cyanosis, No edema Skin: No breakdown Musculoskeletal: No Tenderness to Palpation of Joints or Extremities, No Muscle Wasting Lymphatic: No Cervical, Supraclavicular, or Inguinal Adenopathy Neurological: Cranial nerves II-XII grossly intact, Neuro grossly intact Psych/Mental Status: Alert and oriented to time, place, person, mood and affect Labs (Last 48 Hours) 04/12/20 04/12/20 04/12/20 06:45 06:45 06:45 WBC 11.0 RBC 3.18 L Hgb 11.0 L Hct 29.7 L MCV 93.4 MCH 34.6 H MCHC 37.0 H D RDW Std Deviation 44.8 H RDW Coeff of Gabriel 14.1 Plt Count 374 MPV 9.4 Immature Gran % (Auto) 2.500 H Neut % (Auto) 75.1 H Lymph % (Auto) 12.2 L [place] % (Auto) 9.7 Eos % (Auto) 0.2 Baso % (Auto) 0.3 Absolute Neuts (auto) 8.2 H Absolute Lymphs (auto) 1.34 Nucleated RBC % 0 Sodium 138 Potassium 3.8 Chloride 106 Carbon Dioxide 25.0 Anion Gap 7 BUN 24 H Creatinine 0.77 Estim Creat Clear Calc 36.50 Est GFR (MDRD) Af Amer 92 Est GFR (MDRD) Non-Af 76 BUN/Creatinine Ratio 31.2 H Glucose 98 Calcium 8.3 L Total Bilirubin 0.40 AST 33 ALT 82 H Alkaline Phosphatase 76 Lactate Dehydrogenase 315 H C-React Prot Ext Range 12.50 H Total Protein 5.9 L Albumin 2.5 L Globulin 3.4 Albumin/Globulin Ratio 0.7 L Microbiology 04/05/20 14:00 Blood Culture (Wb) - Anticubital Left Blood Culture - Final No growth in 5 days. 04/05/20 14:05 Blood Culture (Wb) - Anticubital Right Blood Culture - Final No growth in 5 days. Clinical Impression(s) from Imaging Studies Chest X-Ray 04/05/20 14:15 IMPRESSION: Airspace opacity in the lingula and right lower lobe which is consistent with multilobar pneumonia. Electronically Signed: Leeroy May, at 14:37 EST Tel , Service support , Chest CTA 04/07/20 13:17 IMPRESSION: Multiple bilateral pulmonary emboli in branches of the right and left pulmonary arteries involving both upper and lower lobes. Bilateral pulmonary infiltrates worse in the lower lobes although there is evidence of the patchy infiltrates in both upper lobes worse in the left upper lobe. 2.8 cm x 2.6 cm soft tissue density in the right adrenal gland. Moderate sized hiatal hernia. Electronically Signed: Ton Cullen, at 15:16 EST , Service support , Current Medications Acetaminophen (Acetaminophen 325 Mg Tablet) 650 mg PO Q6H PRN PRN PRN Reason: Pain Score 1-10/Temp > 100.7 F Last Admin: 04/07/20 09:44 Dose: 650 mg Documented by: Dexamethasone (Dexamethasone 4 Mg Tablet) 6 mg PO DAILY [facility] Stop: 04/15/20 10:01 Last Admin: 04/13/20 09:10 Dose: 6 mg Documented by: Enoxaparin Sodium (Enoxaparin 80 Mg/0.8 Ml Syringe) 80 mg SC BID [facility] Last Admin: 04/13/20 09:10 Dose: 80 mg Documented by: Guaifenesin (Guaifenesin 1,200 Mg Tablet) 1,200 mg PO BID [facility] Last Admin: 04/13/20 09:11 Dose: 1,200 mg Documented by: Hydroxyzine Pamoate (Hydroxyzine Mayda 25 Mg Capsule) 25 mg PO QHS [facility] Last Admin: 04/12/20 21:55 Dose: 25 mg Documented by: Sodium Chloride () 250 mls @ 15 mls/hr IV .[id number] PRN PRN Reason: Saline Flush Sodium Chloride () 250 mls @ 15 mls/hr IV .[id number] PRN PRN Reason: Additional IVPB Infusion Sodium Chloride () 250 mls @ 15 mls/hr IV .[id number] PRN PRN Reason: Saline Flush Sodium Chloride () 250 mls @ 15 mls/hr IV .[id number] PRN PRN Reason: Additional IVPB Infusion Ibuprofen (Ibuprofen 400 Mg Tablet) 400 mg PO Q4H PRN PRN PRN Reason: Pain Score 1-10/Temp > 100.7 F Multivitamins (Multivitamins,Therapeutic Tablet) 1 tablet PO DAILY [facility] Last Admin: 04/13/20 09:11 Dose: 1 tablet Documented by: Ondansetron HCl (Ondansetron 4 Mg/2 Ml Vial) 4 mg IV Q8H PRN PRN PRN Reason: NAUSEA/VOMITING Sodium Chloride (0.9% Saline Lock 10 Ml Syringe) 10 - 40 ml IV UD PRN PRN Reason: SALINE FLUSH Last Admin: 04/11/20 23:05 Dose: 10 ml Documented by: Medical Necessity - Tobacco Use Smoking Status: Never smoker Assessment/Plan All Active Problems Pneumonia (Acute) COVID-19 (Acute) RECOMMENDATIONS: 1. Continue Decadron 6 mg daily x10 days. 2. Continue Lovenox as ordered. 3. Wean supplemental oxygen to maintain saturations at or above 90%. 4. Encourage incentive spirometer use and mobilize patient as tolerated. IMPRESSIONS: 1. Acute hypoxemic respiratory failure secondary to combined COVID-19/influenza and/or community-acquired pneumonia and pulmonary emboli The patient essentially presented to the hospital with 2 weeks of Covid-like symptoms. She was also found to be positive for influenza B with radiographic findings concerning for multilobar pneumonia. She is currently maintaining appropriate saturations on supplemental O2 via nasal cannula. Recommend continuing current supportive measures including Decadron 6 mg daily x10 days. In addition to the aforementioned, a CTA chest was obtained and did reveal bilateral pulmonary emboli, for which the patient is therapeutically anticoagulated on Lovenox. Wean supplemental oxygen to maintain saturations at or above 90%. This note was generated with [employer] dictation software. It may contain incorrect words, spelling, and punctuation that were not noted in checking the note before signing. Inpatient E&M: [id number] Subs Hosp L2
--- NOTE | 2020-04-13 11:03 | NURSING ---
O2 DECREASED TO 1L NC
--- NOTE | 2020-04-13 11:58 | PN_ITS ---
Patient Problems: Active and Suspected Problems Pneumonia (Acute) COVID-19 (Acute) Reason for Visit: Follow-up for acute hypoxic respiratory failure secondary to bilateral COVID-19 pneumonia Objective: Patient slept good on hydroxyzine 25 mg daily. Denies shortness of breath. Patient brings of clear sputum. Denies chest congestion. Physical exam General: Alert, Oriented x3, Cooperative HEENT: Atraumatic, PERRLA, EOMI, Normocephalic Oral: No Gingival or Mucosal Lesions/ Ulcerations Neck: Supple, No JVD, Negative Carotid Bruits Lungs: Air entry diminished in bilateral lung bases. No crepitation/rhonchi. Hypoxia on 5 L of oxygen Cardiovascular: Regular rate, Regular Rhythm, Normal S1, Normal S2, No murmurs Abdomen: Bowel Sounds Present, Soft, Non Tender, Non-Distended : No renal angle tenderness. No suprapubic tenderness. Extremities: No edema, Capillary Refill Less than 3 Seconds Skin: No rashes, No breakdown Musculoskeletal: No Tenderness to Palpation of Joints or Extremities Neurological: Cranial nerves II-XII grossly intact, Deep Tendon Reflexes 2+/4 and Symmetrical, Neuro grossly intact Psych/Mental Status: Normal Affect, Appropriate. Vitals/I&O's: Vital Signs Temp Pulse Resp BP Pulse Ox 97.6 F L 76 20 H 101/61 97 04/13/20 09:06 04/13/20 09:06 04/13/20 09:06 04/13/20 09:06 04/13/20 11:03 Oxygen Flow Rate (L/min) 2 Oxygen Delivery Method Nasal Cannula Weight: 175 lb 0.752 oz Body Mass Index (BMI) 30.9 Intake and Output for Last 24 Hours 04/11/20 04/12/20 04/13/20 23:59 23:59 23:59 Intake Total 1620 / 1620 660 / 660 Balance 1620 / 1620 660 / 660 Microbiology Past 72 Hours 04/05/20 14:00 Blood Culture (Wb) - Anticubital Left Blood Culture - Final No growth in 5 days. 04/05/20 14:05 Blood Culture (Wb) - Anticubital Right Blood Culture - Final No growth in 5 days. Current Medications Acetaminophen (Acetaminophen 325 Mg Tablet) 650 mg PO Q6H PRN PRN PRN Reason: Pain Score 1-10/Temp > 100.7 F Last Admin: 04/07/20 09:44 Dose: 650 mg Documented by: Dexamethasone (Dexamethasone 4 Mg Tablet) 6 mg PO DAILY [facility] Stop: 04/15/20 10:01 Last Admin: 04/13/20 09:10 Dose: 6 mg Documented by: Enoxaparin Sodium (Enoxaparin 80 Mg/0.8 Ml Syringe) 80 mg SC BID [facility] Last Admin: 04/13/20 09:10 Dose: 80 mg Documented by: Guaifenesin (Guaifenesin 1,200 Mg Tablet) 1,200 mg PO BID [facility] Last Admin: 04/13/20 09:11 Dose: 1,200 mg Documented by: Hydroxyzine Pamoate (Hydroxyzine Mayda 25 Mg Capsule) 25 mg PO QHS [facility] Last Admin: 04/12/20 21:55 Dose: 25 mg Documented by: Sodium Chloride () 250 mls @ 15 mls/hr IV .[id number] PRN PRN Reason: Saline Flush Sodium Chloride () 250 mls @ 15 mls/hr IV .[id number] PRN PRN Reason: Additional IVPB Infusion Sodium Chloride () 250 mls @ 15 mls/hr IV .[id number] PRN PRN Reason: Saline Flush Sodium Chloride () 250 mls @ 15 mls/hr IV .[id number] PRN PRN Reason: Additional IVPB Infusion Ibuprofen (Ibuprofen 400 Mg Tablet) 400 mg PO Q4H PRN PRN PRN Reason: Pain Score 1-10/Temp > 100.7 F Multivitamins (Multivitamins,Therapeutic Tablet) 1 tablet PO DAILY [facility] Last Admin: 04/13/20 09:11 Dose: 1 tablet Documented by: Ondansetron HCl (Ondansetron 4 Mg/2 Ml Vial) 4 mg IV Q8H PRN PRN PRN Reason: NAUSEA/VOMITING Sodium Chloride (0.9% Saline Lock 10 Ml Syringe) 10 - 40 ml IV UD PRN PRN Reason: SALINE FLUSH Last Admin: 04/11/20 23:05 Dose: 10 ml Documented by: STROKE Vital Signs/Narrative: Vital Signs Temp Pulse Resp BP Pulse Ox 04/13/20 11:03 97 04/13/20 09:06 97.6 F L 76 20 H 101/61 96 Medical Necessity - Tobacco Use Smoking Status: Never smoker Assessment/Plan All Active Problems Pneumonia (Acute) COVID-19 (Acute) 1. Acute hypoxic respiratory failure secondary to acute COVID-19 pneumonia/influenza antigen B with possible bacterial superinfection and bilateral lobar pulmonary embolism: Patient is being admitted on Covid cohort floor. Seen by ID and discussed with him. CTPA is ordered to rule out PE. Currently on ceftriaxone and azithromycin. On Decadron and Tamiflu. Mucinex and PEP. 04/08: CTPA chest reviewed on 04/07. Multiple bilateral lobar pulmonary emboli in the right and left pulmonary arteries on both upper and lower lobes. Bilateral pneumonic consolidation/infiltrates bilaterally worse on the lower lobes. Patient had 4 days of azithromycin therefore discontinued. Continue ceftriaxone and Tamiflu and Decadron. Clinical update was given to the patient daughter 04/09: WBC count 11,000 slightly improved. H&H is stable. No fever since admission. Heart rate and blood pressure controlled. Continue above treatment. Clinical update was given to the patient's daughter Ms. Maggy Purcell, [phone]. 04/10: Patient is still on 6 L of oxygen. Serum chloride is 111. IV fluid discontinued. Melatonin increased to 10 mg for sleep. Clinical update was given to patient's daughter Mrs. Maye Purcell 04/11: Patient oxygen level is better. No shortness of breath. Continue with your treatment. Patient slept good on melatonin 10 mg. Clinical update was given to the patient's daughter. ID note states Covid started about 2 weeks prior to admit. Patient completed Tamiflu on 04/10 and antibiotics were discontinued on 04/09 by ID. Patient not a candidate for convalescent plasma or remdesivir because of duration of symptoms more than 2 weeks. Lasix 40 mg IV given. 04/12: Patient feels improvement about 60%. Patient wants little stronger sleep medication. I called the daughter and we agreed on hydroxyzine 25 mg nightly and discontinuation of melatonin. 04/13: Patient on 3 L of oxygen. Continue incentive spirometry and pep. I called the daughter to give clinical update. Anticipate discharge tomorrow a.m. 2. Acute COVID-19 pneumonia with hypoxia: As mentioned. Patient does not have typical influenza symptoms. 3. Acute community-acquired pneumonia, multilobular, likely secondary to suspected gram-positive organisms Chest x-ray showed airspace opacity in the lingula and right lower lobe 4. Acute influenza, started on Tamiflu 5. Mild hypokalemia: Potassium is being replaced. Magnesium 2.0. DVT PPx- Lovenox SC BID Microbiology Past 72 Hours 04/05/20 14:00 Blood Culture (Wb) - Anticubital Left Blood Culture - Final No growth in 5 days. 04/05/20 14:05 Blood Culture (Wb) - Anticubital Right Blood Culture - Final No growth in 5 days. . Laboratory Results 04/12/20 06:45: Sodium 138, Potassium 3.8, Chloride 106, Carbon Dioxide 25.0, Anion Gap 7, BUN 24 H, Creatinine 0.77, Estim Creat Clear Calc 36.50, Est GFR (MDRD) Af Amer 92, Est GFR (MDRD) Non-Af 76, BUN/Creatinine Ratio 31.2 H, Glucose 98, Calcium 8.3 L, Total Bilirubin 0.40, AST 33, ALT 82 H, Alkaline Phosphatase 76, Total Protein 5.9 L, Albumin 2.5 L, Globulin 3.4, Albumin/Globulin Ratio 0.7 L 04/12/20 06:45: Lactate Dehydrogenase 315 H, C-React Prot Ext Range 12.50 H 04/12/20 06:45: WBC 11.0, RBC 3.18 L, Hgb 11.0 L, Hct 29.7 L, MCV 93.4, MCH 34.6 H, MCHC 37.0 H D, RDW Std Deviation 44.8 H, RDW Coeff of Gabriel 14.1, Plt Count 374, MPV 9.4, Immature Gran % (Auto) 2.500 H, Neut % (Auto) 75.1 H, Lymph % (Auto) 12.2 L, [place] % (Auto) 9.7, Eos % (Auto) 0.2, Baso % (Auto) 0.3, Absolute Neuts (auto) 8.2 H, Absolute Lymphs (auto) 1.34, Nucleated RBC % 0 Clinical Impression(s) from Imaging Studies Chest X-Ray 04/05/20 14:15 IMPRESSION: Airspace opacity in the lingula and right lower lobe which is consistent with multilobar pneumonia. Chest CTA 04/07/20 13:17 IMPRESSION: Multiple bilateral pulmonary emboli in branches of the right and left pulmonary arteries involving both upper and lower lobes. Bilateral pulmonary infiltrates worse in the lower lobes although there is evidence of the patchy infiltrates in both upper lobes worse in the left upper lobe. 2.8 cm x 2.6 cm soft tissue density in the right adrenal gland. Moderate sized hiatal hernia. Electronically Signed: oTn Cullen, at 15:16 EST , Service support , Inpatient E&M: [id number] Subs Hosp L2
[2020-04-13] MEDS: hydrOXYzine PAM 25 MG Capsule PO (21:42)
[2020-04-14 03:00] VITALS: BP 161/78; PULSE 72; RESP 18; TEMP 36.6; O2SAT 94
[2020-04-14 06:00] LABS: Absolute Lymphocyte Count 1.74 X10^3/uL (0.83-4.51); Absolute Neutrophil Count 9.2 X10^3/uL (2.0-7.7); Basophil# 0.02 X10^3/uL; Basophil% 0.2 % (0-1); Eosinophil# 0.03 X10^3/uL; Eosinophils% 0.2 % (0-5); Hematocrit 36.3 % (37-47); Hemoglobin 12.4 g/dL (12.0-15.0); Lymphocyte # 1.74 X10^3/ul (4.0); Mean Corp Hgb Conc 34.2 g/dL (32-36); Mean Corpuscular Volume 93.6 fL (81-99); Mean Platelet Vol. 9.4 fl (6.2-12.0); Monocyte# 1.22 X10^3/uL; Monocyte% 9.8 % (0-10); NRBC Flagged by Analyzer 0 % (0-5); Neutrophil # 9.16 X10^3/uL (2.7-7.7); Neutrophil % 73.5 % (47-70); Platelet Count 430 K/mm3 (150-450); RBC Distribution Width CV 13.6 % (11.6-14.6); Red Blood Count 3.88 M/mm3 (4.2-5.4); White Blood Count 12.5 K/mm3 (4.4-11.0)
[2020-04-14 06:27] LABS: ALB/GLOB Ratio 0.7 RATIO (0.9-2.4); AST(SGOT) 32 U/L (15-37); Alanine Aminotransfer ALT/SGPT 78 U/L (13-56); Albumin, Serum 2.7 g/dL (3.2-5.0); Alkaline Phosphatase 76 U/L (45-117); Anion Gap 6 (5-15); BUN 22 mg/dL (7-18); Calcium,Total 8.7 mg/dL (8.5-10.1); Chloride 108 mmol/L (98-107); Creatinine, Serum 0.82 mg/dL (0.55-1.02); EST Glomerular Filtration Rate 71 mL/min (>60); Est Glom Filt Rate - Afr Amer 86 mL/min (>60); Estimated Creatinine Clearance 44.51 ml/min; Glucose 87 mg/dL (74-106); Protein, Total 6.7 g/dL (6.4-8.2); Sodium Level 138 mmol/L (136-145)
--- NOTE | 2020-04-14 07:26 | PCM.DC ---
- Discharge Diagnoses Current Active Problems: Current Active and Chronic Problems Pneumonia (Acute) COVID-19 (Acute) You will use the following diet at home:: Regular Your food should be the consistency of: Regular Discharge Activity: May Not Drive Additional Instructions: Self quarantine for 2 weeks from symtom onset on 03/31/20 so 1 more day of self quarantine. End date 04/14/2020 Allergies/Adverse Reactions: Allergies Penicillins [PCN] Allergy (Verified 04/05/20 17:31) Hives codeine Adverse Reaction (Verified 04/05/20 17:31) Upset Stomach Medications to take at Discharge Multivitamin 1 ea PO DAILY 04/05/20 Guaifenesin [Mucinex] 1,200 mg PO BID #14 tab 04/14/20 The following prescriptions were given: Guaifenesin [Mucinex] 1,200 mg PO BID #14 tab Transmission Status: Pending to [id number] Primary Care Physician: Care Physician,No Primary [Primary Care Provider] - Please follow up with your Primary Care Physician in: in 2 weeks Test Results: Test results from this visit will be discussed in further detail at your follow-up appointment, if applicable.
--- NOTE | 2020-04-14 07:26 | PCM.DC.SUM ---
Discharge Date and Diagnosis - Problem List Patient Problems: Active and Suspected Problems Pneumonia (Acute) COVID-19 (Acute) Date of Admission: 04/05/20 Date of Discharge: 04/14/20 - Primary Discharge Diagnosis Acute Problems: Active Problems Pneumonia (Acute) COVID-19 (Acute) Acute hypoxic respiratory failure secondary to acute COVID-19 pneumonia/influenza antigen B with possible bacterial superinfection pneumonia and bilateral lobar pulmonary embolism Hospital Course and Treatment Summary of Care Provided: [] 1. Acute hypoxic respiratory failure secondary to acute COVID-19 pneumonia/influenza antigen B with possible bacterial superinfection and bilateral lobar pulmonary embolism: Patient is being admitted on Covid cohort floor. Seen by ID and discussed with him. CTPA is ordered to rule out PE. Currently on ceftriaxone and azithromycin. On Decadron and Tamiflu. Mucinex and PEP. 04/08: CTPA chest reviewed on 04/07. Multiple bilateral lobar pulmonary emboli in the right and left pulmonary arteries on both upper and lower lobes. Bilateral pneumonic consolidation/infiltrates bilaterally worse on the lower lobes. Patient had 4 days of azithromycin therefore discontinued. Continue ceftriaxone and Tamiflu and Decadron. Patient completed treatment of Tamiflu. Patient was seen by ID and had 4 days of IV ceftriaxone and Zithromax and then antibiotic was discontinued as per ID recommendation. Patient leukocytosis resolved to 11,000 and then had 12.5 thousand most likely steroid effect as patient did not had fever. Clinical updates were given to patient's daughter Ms. Maggy [place], [phone]. Patient not candidate for convalescent plasma remdesivir because of duration of symptoms more than 2 weeks. Continue incentive spirometry and pep. Patient hypoxia relieved. Patient is discharged on Eliquis 10 mg twice daily for 2 more days and then 5 mg twice daily to continue. Discussed with the [facility] [place]. Discharge process was discussed with the patient's daughter. 2 more days of Decadron. Mucinex 1200 mg p.o. twice daily for 7 days. 2. Acute COVID-19 pneumonia with hypoxia: As mentioned. Patient does not have typical influenza symptoms. 3. Acute community-acquired pneumonia, multilobular, likely secondary to suspected gram-positive organisms Chest x-ray showed airspace opacity in the lingula and right lower lobe 4. Acute influenza, started on Tamiflu 5. Mild hypokalemia: Potassium is being replaced. Magnesium 2.0. Repeat potassium 4.0. Discharge medication reconciliation done. Discharge follow-up instructions completed. Discharge process discussed with the patient and her daughter Ms. Maye [place] and all questions were answered to patient's satisfaction. Total time spent, exact 35 minutes on discharge meds reconciliation, examination, coordination of care with nurses and ancillary staff, review of imaging and blood test and discussion with the patient on follow-up instructions Laboratory Results 04/14/20 05:40: WBC 12.5 H, RBC 3.88 L, Hgb 12.4, Hct 36.3 L, MCV 93.6, MCH 32.0, MCHC 34.2 D, RDW Std Deviation 45.0 H, RDW Coeff of Gabriel 13.6, Plt Count 430, MPV 9.4, Immature Gran % (Auto) 2.300 H, Neut % (Auto) 73.5 H, Lymph % (Auto) 14.0 L, Sibley % (Auto) 9.8, Eos % (Auto) 0.2, Baso % (Auto) 0.2, Absolute Neuts (auto) 9.2 H, Absolute Lymphs (auto) 1.74, Nucleated RBC % 0 04/14/20 05:40: Sodium 138, Potassium 4.0, Chloride 108 H, Carbon Dioxide 24.0, Anion Gap 6, BUN 22 H, Creatinine 0.82, Estim Creat Clear Calc 44.51, Est GFR (MDRD) Af Amer 86, Est GFR (MDRD) Non-Af 71, BUN/Creatinine Ratio 27.0 H, Glucose 87, Calcium 8.7, Total Bilirubin 0.50, AST 32, ALT 78 H, Alkaline Phosphatase 76, Total Protein 6.7, Albumin 2.7 L, Globulin 4.0, Albumin/Globulin Ratio 0.7 L Clinical Impression(s) from Imaging Studies Chest X-Ray 04/05/20 14:15 IMPRESSION: Airspace opacity in the lingula and right lower lobe which is consistent with multilobar pneumonia. Chest CTA 04/07/20 13:17 IMPRESSION: Multiple bilateral pulmonary emboli in branches of the right and left pulmonary arteries involving both upper and lower lobes. Bilateral pulmonary infiltrates worse in the lower lobes although there is evidence of the patchy infiltrates in both upper lobes worse in the left upper lobe. 2.8 cm x 2.6 cm soft tissue density in the right adrenal gland. Moderate sized hiatal hernia. Patient Problems: Active and Suspected Problems Pneumonia (Acute) COVID-19 (Acute) Objective: No fever or chills. No shortness of breath. Patient is able to bring up phlegm, clear sputum. Pulse ox 92% on room air, 93% on room air. Physical exam General: Alert, Oriented x3, Cooperative HEENT: Atraumatic, PERRLA, EOMI, Normocephalic Oral: No Gingival or Mucosal Lesions/ Ulcerations Neck: Supple, No JVD, Negative Carotid Bruits Lungs: Air entry diminished in bilateral lung bases. No crepitation/rhonchi. Cardiovascular: Regular rate, Regular Rhythm, Normal S1, Normal S2, No murmurs Abdomen: Bowel Sounds Present, Soft, Non Tender, Non-Distended : No renal angle tenderness. No suprapubic tenderness. Extremities: No edema, Capillary Refill Less than 3 Seconds Skin: No rashes, No breakdown Musculoskeletal: No Tenderness to Palpation of Joints or Extremities Neurological: Cranial nerves II-XII grossly intact, Deep Tendon Reflexes 2+/4 and Symmetrical, Neuro grossly intact Psych/Mental Status: Normal Affect, Appropriate. - Physical Exam Vitals/I&O's: Vital Signs Temp Pulse Resp BP Pulse Ox 97.9 F 72 18 161/78 H 94 04/14/20 03:00 04/14/20 03:00 04/14/20 03:00 04/14/20 03:00 04/14/20 03:00 Oxygen Flow Rate (L/min) 1 Oxygen Delivery Method Nasal Cannula Weight: 175 lb 0.752 oz Body Mass Index (BMI) 30.9 Intake and Output for Last 24 Hours 04/12/20 04/13/20 04/14/20 23:59 23:59 23:59 Intake Total 660 / 660 1020 / 1220 500 / 500 Balance 660 / 660 1020 / 1220 500 / 500 Microbiology Past 72 Hours 04/05/20 14:00 Blood Culture (Wb) - Anticubital Left Blood Culture - Final No growth in 5 days. 04/05/20 14:05 Blood Culture (Wb) - Anticubital Right Blood Culture - Final No growth in 5 days. Laboratory Results 04/14/20 05:40: WBC 12.5 H, RBC 3.88 L, Hgb 12.4, Hct 36.3 L, MCV 93.6, MCH 32.0, MCHC 34.2 D, RDW Std Deviation 45.0 H, RDW Coeff of Gabriel 13.6, Plt Count 430, MPV 9.4, Immature Gran % (Auto) 2.300 H, Neut % (Auto) 73.5 H, Lymph % (Auto) 14.0 L, Sibley % (Auto) 9.8, Eos % (Auto) 0.2, Baso % (Auto) 0.2, Absolute Neuts (auto) 9.2 H, Absolute Lymphs (auto) 1.74, Nucleated RBC % 0 04/14/20 05:40: Sodium 138, Potassium 4.0, Chloride 108 H, Carbon Dioxide 24.0, Anion Gap 6, BUN 22 H, Creatinine 0.82, Estim Creat Clear Calc 44.51, Est GFR (MDRD) Af Amer 86, Est GFR (MDRD) Non-Af 71, BUN/Creatinine Ratio 27.0 H, Glucose 87, Calcium 8.7, Total Bilirubin 0.50, AST 32, ALT 78 H, Alkaline Phosphatase 76, Total Protein 6.7, Albumin 2.7 L, Globulin 4.0, Albumin/Globulin Ratio 0.7 L Current Medications Acetaminophen (Acetaminophen 325 Mg Tablet) 650 mg PO Q6H PRN PRN PRN Reason: Pain Score 1-10/Temp > 100.7 F Last Admin: 04/07/20 09:44 Dose: 650 mg Documented by: Dexamethasone (Dexamethasone 4 Mg Tablet) 6 mg PO DAILY [facility] Stop: 04/15/20 10:01 Last Admin: 04/13/20 09:10 Dose: 6 mg Documented by: Enoxaparin Sodium (Enoxaparin 80 Mg/0.8 Ml Syringe) 80 mg SC BID [facility] Last Admin: 04/13/20 21:42 Dose: 80 mg Documented by: Guaifenesin (Guaifenesin 1,200 Mg Tablet) 1,200 mg PO BID [facility] Last Admin: 04/13/20 21:42 Dose: 1,200 mg Documented by: Hydroxyzine Pamoate (Hydroxyzine Mayda 25 Mg Capsule) 25 mg PO QHS [facility] Last Admin: 04/13/20 21:42 Dose: 25 mg Documented by: Sodium Chloride () 250 mls @ 15 mls/hr IV .[id number] PRN PRN Reason: Saline Flush Sodium Chloride () 250 mls @ 15 mls/hr IV .[id number] PRN PRN Reason: Additional IVPB Infusion Sodium Chloride () 250 mls @ 15 mls/hr IV .[id number] PRN PRN Reason: Saline Flush Sodium Chloride () 250 mls @ 15 mls/hr IV .[id number] PRN PRN Reason: Additional IVPB Infusion Ibuprofen (Ibuprofen 400 Mg Tablet) 400 mg PO Q4H PRN PRN PRN Reason: Pain Score 1-10/Temp > 100.7 F Multivitamins (Multivitamins,Therapeutic Tablet) 1 tablet PO DAILY [facility] Last Admin: 04/13/20 09:11 Dose: 1 tablet Documented by: Ondansetron HCl (Ondansetron 4 Mg/2 Ml Vial) 4 mg IV Q8H PRN PRN PRN Reason: NAUSEA/VOMITING Sodium Chloride (0.9% Saline Lock 10 Ml Syringe) 10 - 40 ml IV UD PRN PRN Reason: SALINE FLUSH Last Admin: 04/11/20 23:05 Dose: 10 ml Documented by: Home Medications: Medications to take at Discharge Multivitamin 1 ea PO DAILY 04/05/20 Apixaban [Eliquis] 10 mg PO BID #70 tab.ds.pk 04/14/20 Dexamethasone [Decadron] 6 mg PO DAILY 2 Days #2 tab 04/14/20 Guaifenesin [Mucinex] 1,200 mg PO BID #14 tab 04/14/20 Following Prescriptions Were Given to Patient: Dexamethasone [Decadron] 6 mg PO DAILY 2 Days #2 tab Transmission Status: Received by [facility] Apixaban [Eliquis] 10 mg PO BID #70 tab.ds.pk Transmission Status: Received by [facility] Guaifenesin [Mucinex] 1,200 mg PO BID #14 tab Transmission Status: Received by [facility] Primary Care Physician: Care Physician,No Primary [Primary Care Provider] - Medical Necessity - Tobacco Use Smoking Status: Never smoker Meaningful Use Info Meaningful Use Diagnoses (Choose all that apply): VTE - VTE Anticoag overlap given w/in hospital stay or rx'd at wa?: Yes Pt receive overlap for 5 days?: No Reason overlap not ordered, prescribed, or given for 5 days: Procedure Not Indicated - Discharged on Eliquis. Inpatient E&M: [id number] Disch Hosp
[2020-04-14 08:00] VITALS: O2SAT 86; O2SAT 92; O2SAT 93
[2020-04-14 09:00] VITALS: BP 114/59; PULSE 91; RESP 16; TEMP 36.2; O2SAT 1; O2SAT 93
[2020-04-14] MEDS: Enoxaparin 80 MG/0.8 ML Syringe SC (09:09)
[2020-04-14] MEDS: dexAMETHasone 4 MG Tablet 6 MG PO (09:09)
[2020-04-14] MEDS: Multivitamins,Therapeutic Tablet 1 TABLET PO (09:10)
[2020-04-14] MEDS: guaiFENesin 1,200 MG Tablet 1200 MG PO (09:10)
--- NOTE | 2020-04-14 11:17 | CASEMGMT ---
Addendum entered by Jose E Eric 04/14/20 12:01: Signed Script and clinical information faxed to [facility]. Called to Vidya @ [facility] to update on referral for Home O2 and need for portable tank. Original Note: FREDI EVANS Note: the patient to be dc'd today to home. Qualified for home oxygen with exertion. -Intro role of CM to patient via phone to room. Verified patient is returning home to her mother in law suite at her daughter's home. She states her daughter and son in law have recovered from COVID recently. Reviewed [facility] for home oxygen on discharge. Patient is agreeable and [facility] can call daughter for home set up. -Dr. Benedict updated and script available for him to sign. Coreen CARRASQUILLON RN ACM
[2020-04-14 11:48] VITALS: O2SAT 92
[2020-04-14 13:00] VITALS: O2SAT 92
[2020-04-14 15:00] VITALS: BP 112/71; PULSE 73; RESP 18; TEMP 36.7; O2SAT 93
--- NOTE | 2020-04-15 08:43 | CASEMGMT ---
FREDI CM Note: DC Summary faxed to [facility]. Coreen MASSEY RN ACM
--- NOTE | 2020-04-15 14:23 | CASEMGMT ---
FREDI EVANS DC PHONE CALL DC DATE: 04/15/2020 DC DISPOSITION: Home DC DIAGNOSIS: COVID + F/U APPTS MADE PRIOR TO DC: no PRESCRIPTIONS ACQUIRED BY PT: yes Intro role of CM to patient via phone. Patient states she is feeling well and no difficulties or new symptoms. Pt is tolerating her oxygen and no questions. She is staying in her apartment/suite and family is able to provide groceries, food during her quarantine. -Physician will be calling her this afternoon for a follow up. Coreen Yin RN ACM
== END 2020-04-14 15:40 | disposition home or self-care (01) | DRG 177 ==
LOC: ED 14:25 → MS2 16:30
PROVIDERS: Internal Medicine; Emergency Provider Emergency Medicine; Visit Provider Internal Medicine
DX: U07.1 COVID-19 (principal); J10.08 Influenza due to other identified influenza virus with other specified pneumonia; J12.89 Other viral pneumonia; J96.01 Acute respiratory failure with hypoxia; J15.9 Unspecified bacterial pneumonia; I26.99 Other pulmonary embolism without acute cor pulmonale; E87.6 Hypokalemia; Z66 Do not resuscitate
CPT/HCPCS: 36415; 71045; 71275; 80048; 80053; 83615; 83735; 84484; 85025; 86140; 87040; 87070; 87205; 87449; 87635; 87804; 93005; 94667; 94668; 97110; 97116; 97162; 97166; 97530; 97535; 99251; 99284; J7030; J7050; Q9967; A4216; G0463; J0696; J1940; U0002

== ENCOUNTER → 2020-05-20 15:49 | Outpatient (CLI) | payer MEDICARE, OTHER, SELFPAY ==
[2020-04-05 17:16] VITALS: BMI 30.9
[2020-05-20 18:40] LABS: T4 Free Direct 1.06 ng/dL (0.76-1.46); Thyroid Stim Hormone (TSH) 2.42 uIU/mL (0.358-3.74)
== END ==
PROVIDERS: Visit Provider Family Medicine
DX: L65.9 Nonscarring hair loss, unspecified (principal)
CPT/HCPCS: 36415; 84439; 84443

== ENCOUNTER → 2020-09-17 16:10 | Outpatient (CLI) | payer MEDICARE, OTHER, SELFPAY ==
[2020-04-05 17:16] VITALS: BMI 30.9
--- NOTE | 2020-09-17 16:15 | RAD_ITS ---
STUDY: X-RAY - LEFT KNEE REASON FOR EXAM: Left knee pain, arthritis. TECHNIQUE: 4 view(s) of the knee. COMPARISON: None. FINDINGS: There is osteopenia. Normal visualized distal femur. Normal visualized proximal tibia and fibula. Normal proximal tibiofibular articulation. Normal medial femorotibial compartment. There are marginal osteophytes and severe joint space narrowing of the lateral femorotibial compartment. There are small marginal osteophytes and moderate joint space narrowing of the patellofemoral articulation. There is a joint effusion. RAD/Knee 4 or More Views IMPRESSION: Arthrosis of the lateral femorotibial and patellofemoral compartments. Joint effusion. Electronically Signed: Jesse Larson MD at 14:11 EDT Tel , Service support ,
--- NOTE | 2020-09-17 16:15 | RAD_ITS ---
STUDY: X-RAY - RIGHT KNEE REASON FOR EXAM: Female, 80 years old. ARTHRITIS TECHNIQUE: 4 view(s) of the knee. COMPARISON: None. FINDINGS: Normal visualized distal femur. Normal visualized proximal tibia and fibula. Normal proximal tibiofibular articulation. There is mild degenerative arthrosis of the medial femorotibial compartment. Normal lateral femorotibial compartment. There is severe degenerative arthrosis of the patellofemoral articulation. The soft tissue structures are unremarkable. RAD/Knee 4 or More Views IMPRESSION: Degenerative arthrosis. Electronically Signed: Ton Cullen MD at 8:51 EDT , Service support ,
== END ==
PROVIDERS: PCP Family Medicine; Referring Provider Family Medicine; Visit Provider Family Medicine
DX: M17.0 Bilateral primary osteoarthritis of knee (principal)
CPT/HCPCS: 73564

== ENCOUNTER → 2020-11-03 13:04 | Outpatient (CLI) | payer MEDICARE, OTHER, SELFPAY ==
[2020-04-05 17:16] VITALS: BMI 30.9
--- NOTE | 2020-11-03 13:06 | CT_ITS ---
STUDY: CT ABDOMEN AND PELVIS WITH CONTRAST REASON FOR EXAM: Female, 80 years old. R ADRENAL MASS RADIATION DOSAGE (If Supplied By Facility): CTDIvol = ( 15.20 ) mGy, DLP = ( 863.50 ) mGycm TECHNIQUE: Transaxial images were obtained from the dome of the diaphragm to the symphysis pubis with oral contrast. Oral and amp;amp; IV Readi-CAT and amp;amp; 100mL Isovue-300 was administered. Sagittal and coronal images were reconstructed. Individualized dose optimization techniques were used for this CT. COMPARISON: Comparison is made with prior CT scan of the thorax dated 04/07/2020. FINDINGS: Increased linear markings at the lung bases with evidence of a confluent in the left lower lobe suggestive of a scar. The visualized portions of the heart are within normal limits. Normal liver. There are surgical clips in the gallbladder fossa consistent with a prior cholecystectomy. Normal spleen. There is diffuse atrophy of the pancreas. 3.3 cm x 2.1 cm predominantly fat-containing nodule in the right adrenal gland. Bilateral parapelvic renal cysts more prominent on the left side. There is a small hiatal hernia. Normal small intestine. There are multiple colonic diverticula consistent with diverticulosis. The appendix is visualized and appears normal. Normal abdominal aorta. Normal inferior vena cava. Normal retroperitoneum. Normal urinary bladder. There is absence of the uterus consistent with a prior hysterectomy. Normal abdominal wall. There are diffuse degenerative changes of the visualized lumbar spine. Levoscoliosis. CT/Abdomen/Pelvis WITH Contrast IMPRESSION: Stable 3.3 cm x 2.1 cm predominately fat containing nodule in the right adrenal gland. Bilateral parapelvic cysts. Electronically Signed: Ton Cullen MD at 14:53 EDT , Service support ,
[2020-11-03 13:20] LABS: CREATININE FINGERSTICK 0.9 mg/dL (0.55-1.02); EGFR FINGERSTICK > 60.0000 mL/min (>60)
== END ==
PROVIDERS: PCP Family Medicine; Referring Provider Family Medicine; Visit Provider Family Medicine
DX: E27.8 Other specified disorders of adrenal gland (principal)
CPT/HCPCS: 74177; Q9967

== ENCOUNTER → 2021-10-26 | Outpatient (CLI) | payer MEDICARE, OTHER, SELFPAY ==
[2021-10-26 16:20] LABS: Hematocrit 42.4 % (37-47); Hemoglobin 13.1 g/dL (12.0-15.0); Mean Corp Hgb Conc 30.9 g/dL (32-36); Mean Corpuscular Hgb 29.2 pg (27.0-32.0); Mean Corpuscular Volume 94.6 fL (81-99); Platelet Count 321 K/mm3 (150-450); RBC Distribution Width CV 14.1 % (11.6-14.6); RBC Distribution Width SD 48.4 fl (35.1-43.9); Red Blood Count 4.48 M/mm3 (4.2-5.4)
[2021-10-26 16:22] LABS: White Blood Count 7.8 K/mm3 (4.4-11.0)
[2021-10-26 16:26] LABS: ALB/GLOB Ratio 1.2 RATIO (0.9-2.4); AST(SGOT) 19 U/L (15-37); Alanine Aminotransfer ALT/SGPT 18 U/L (13-56); Alkaline Phosphatase 73 U/L (45-117); Anion Gap 7 (5-15); BUN 18 mg/dL (7-18); BUN/Creat Ratio 19.6 RATIO (10-20); Chloride 107 mmol/L (98-107); Creatinine, Serum 0.92 mg/dL (0.55-1.02); EST Glomerular Filtration Rate 62 mL/min (>60); Est Glom Filt Rate - Afr Amer 75 mL/min (>60); Globulin 3.4 g/dL (2.2-4.2); Glucose 90 mg/dL (74-106); Potassium 4.4 mmol/L (3.5-5.1); Protein, Total 7.4 g/dL (6.4-8.2); Sodium Level 139 mmol/L (136-145)
== END | disposition home or self-care (01) ==
LOC: MFPLAB 11:24
PROVIDERS: PCP Family Medicine; Visit Provider Family Medicine
DX: R94.31 Abnormal electrocardiogram [ECG] [EKG] (principal)
CPT/HCPCS: 36415; 80053; 85027

== ENCOUNTER → 2021-10-27 | Outpatient (CLI) | payer MEDICARE, OTHER, SELFPAY ==
--- NOTE | 2021-10-27 09:01 | STRESSREP ---
Stress Test Report Date: 10-27-2021 Procedure: Pharmacologic stress nuclear imaging study Indications: Preoperative cardiovascular evaluation Consent: Per the patient Procedure: The patient underwent pharmacologic (Regadenoson 0.4mg ) evaluation with a peak heart rate of 106 beats per minute (77%predicted maximal heart rate) and a peak blood pressure of 130/70 mmHg. The baseline ECG demonstrated normal sinus rhythm; right IVCD pattern. The peak pharmacologic ECG demonstrated no obvious ECG changes. There were no cardiac dysrhythmias pretest, during pharmacologic infusion, or recovery. There was no complaint of chest discomfort during pharmacologic infusion or recovery. The examination was discontinued secondary to completion of protocol. Impression: 1. Pharmacologic (Regadenoson) evaluation 2. Peak pharmacologic ECG with continued right IVCD pattern with no obvious ECG changes. 3. There were no cardiac dysrhythmias pretest, during pharmacologic infusion, or recovery. 4. Nuclear images pending Myocardial perfusion imaging study: Technique: The patient was injected with 11.1 millicuries of technetium 99m Cardiolite and subsequently rest SPECT Cardiolite nuclear imaging was obtained in the horizontal long, vertical long, and short axis views. The patient underwent pharmacologic (Regadenoson) evaluation with a peak heart rate of 106 beats per minute (77% percent predicted maximal heart rate) and a peak blood pressure of 130/70 mmHg. The patient was injected with 36.0 millicuries of technetium 99m Cardiolite and subsequently stress SPECT Cardiolite nuclear imaging was obtained in the horizontal long, vertical long, and short axis views. A gated Cardiolite study at peak stress was obtained. Interpretation: Rest and stress SPECT Cardiolite nuclear imaging status post realignment, normalization, and attenuation correction demonstrate relative uniform tracer uptake and myocardial perfusion appearing within normal limits. There is end systolic thickening and brightening. The gated Cardiolite study demonstrates myocardial thickening and inward wall motion. The reported LVEF is 62%. Impression: 1. Rest and stress SPECT Cardiolite nuclear imaging demonstrate relative uniform tracer uptake and myocardial perfusion appearing within normal limits. 2. The gated Cardiolite study reports an LVEF of 62%. This note was generated with [employer] software. It may contain incorrect words, spelling, and punctuation that were not noted in checking the note before signing.
== END | disposition home or self-care (01) ==
PROVIDERS: PCP Family Medicine; Referring Provider Family Medicine; Visit Provider Family Medicine
DX: R94.31 Abnormal electrocardiogram [ECG] [EKG] (principal)
CPT/HCPCS: 78452; 93017; A9500; A4216; J2785

== ENCOUNTER → 2025-02-26 | Outpatient (CLI) | payer MEDICARE, OTHER, SELFPAY ==
[2025-02-26 15:42] LABS: AST(SGOT) 21 U/L (<=31); Alanine Aminotransfer ALT/SGPT 10 U/L (<=34); Albumin, Serum 4.2 g/dL (3.4-4.8); Alkaline Phosphatase 69 U/L (35-104); Anion Gap 13 (5-15); BUN 19 mg/dL (4-19); BUN/Creat Ratio 20.8 RATIO (10-20); Calcium,Total 8.9 mg/dL (7.6-11.0); Carbon Dioxide 22.2 mmol/L (21.0-32.0); Chloride 106 mmol/L (98-108); Cholesterol 170 mg/dL (<=200); Globulin 2.9 g/dL (2.2-4.2); Glucose 90 mg/dL (70-99); Low Density Lipoprotein Calc. 85 mg/dL; Potassium 4.0 mmol/L (3.3-5.1); Triglycerides 83 mg/dL; Very Low Density Lipoprotein 17 mg/dL (5-40); cholesterol:hdl ratio screen 2.50
[2025-02-26 15:53] LABS: Hematocrit 37.7 % (37-47); Hemoglobin 12.5 g/dL (12.0-15.0); Immature Granulocytes Count 0.020 X10^3/uL (0.0-0.0); Mean Corp Hgb Conc 33.2 g/dL (32-36); Mean Corpuscular Volume 91.5 fL (81-99); Mean Platelet Vol. 10.0 fl (6.2-12.0); NRBC Flagged by Analyzer 0 % (0-5); Platelet Count 298 K/mm3 (150-450); RBC Distribution Width CV 14.1 % (11.6-14.6); RBC Distribution Width SD 47.5 fl (35.1-43.9); Red Blood Count 4.12 M/mm3 (4.2-5.4); White Blood Count 7.0 K/mm3 (4.4-11.0)
== END | disposition home or self-care (01) ==
LOC: MTLAB 11:19
PROVIDERS: PCP Family Medicine; Referring Provider Family Medicine; Visit Provider Family Medicine
DX: Z00.00 Encounter for general adult medical examination without abnormal findings (principal)
CPT/HCPCS: 36415; 80053; 80061; 84443; 85025